=== PATIENT | female | born 1970 | race Caucasian/White ===

== ENCOUNTER 2019-11-06 07:02 | Inpatient (IN) | payer MEDICAID ==
[~2019-11-06] VITALS: Ht 170.2 cm; Wt 99.2 kg
[~2019-11-06 07:02] MED LIST: ALBU8.5H5; ALPR1TAB2; CARI350T; METH10TA; OXYC15TA60
[2019-11-06] MEDS ORDERED: METOCLOPRAMIDE 5 MG/ML, 2ML IVPush ONE (07:30)
[2019-11-06] MEDS ORDERED: SODIUM CHLORIDE FLUSH 10ML SYR IVF ONE (07:30)
[2019-11-06] MEDS ORDERED: SODIUM CHLORIDE 0.9% 1,000ML IVBOLUS ONE (07:30)
[2019-11-06] MEDS ORDERED: ONDANSETRON 2MG/ML, 2ML IVPush ONE (07:30)
[2019-11-06] MEDS ORDERED: ONDANSETRON 2MG/ML, 2ML ONE ×2 (07:32→16:47)
[2019-11-06] MEDS ORDERED: MORPHINE SULFATE 4 MG/ML, 1ML ONE ×3 (07:32→16:47)
[2019-11-06] MEDS ORDERED: METOCLOPRAMIDE 5 MG/ML, 2ML ONE (07:32)
[2019-11-06] MEDS: MORPHINE SULFATE 4 MG/ML, 1ML IVPush PRN ×2 (07:43→08:10)
[2019-11-06 07:54] LABS: MEAN CORPUSCULAR HEMOGLOBIN 26.1 pg (27.0-34.8); MEAN CORPUSCULAR HGB CONC 32.9 g/dL (32.4-35.8); MEAN CORPUSCULAR VOLUME 79.3 fL (80-100); MEAN PLATELET VOLUME 8.4 fL (7.4-10.4); PLATELET COUNT 420 x10^3/uL (130-400); RED BLOOD COUNT 5.62 x10^6/uL (3.82-5.3); RED CELL DISTRIBUTION WIDTH 22.4 % (9.6-15.2)
--- NOTE | 2019-11-06 07:56 | NUR ---
BIB [facility] FOR NAUSEA/VOMITING X3 DAYS, SEEN AT [facility] THIS AM AT 0300 AND HAD RECENT STAY THERE 10/31-11/04 FOR ABD PAIN/INTRACTABLE VOMITING. IV ESTABLISHED AND PT MEDICATED PER MAR, IVF INFUSING. PT FOUND IN ROOM OUT OF BED WITH MONITORS REMOVED AFTER RN EDUCATED PT TO CALL IF NEEDED, PT RE-INSTRUCTED NOT TO REMOVE MONITORS AND TO CALL RN IF NEEDS TO GET UP. PT NODS TO UNDERSTANDING.
[2019-11-06 08:10] LABS: BASOPHILS # (AUTO) 0.02 x10^3/uL (0-0.1); BASOPHILS % (AUTO) 0 % (0-1); EOSINOPHILS % (AUTO) 0 % (1-7); LYMPHOCYTES # (AUTO) 1.35 x10^3/uL (1-3.4); LYMPHOCYTES % (AUTO) 8 % (22-44); MD SCAN; MONOCYTES # (AUTO) 0.64 x10^3/uL (0.2-0.8); MONOCYTES % (AUTO) 4 % (2-9); NEUTROPHILS # (AUTO) 15.93 x10^3/uL (1.8-6.8); NEUTROPHILS % (AUTO) 89 % (42-75)
[2019-11-06 08:16] LABS: INTERNATIONAL NORMALIZED RATIO 1.01 (0.93-1.1); PROTHROMBIN TIME 10.7 Seconds (9.6-11.5)
[2019-11-06] MEDS ORDERED: HALOPERIDOL 5 MG/ML ONE (08:57)
[2019-11-06] MEDS ORDERED: HALOPERIDOL 5 MG/ML IV PRN (09:00)
--- NOTE | 2019-11-06 09:04 | NUR ---
PT CONTINUES TO REMOVE MONITOR, CLOTHING AND OXYGEN DESPITE REPEATED EDUCATION. LAB UNABLE TO DRAW PT BECUASE SHE WILL NOT STOP MOVING FOR VENIPUNCTURE. NOTIFIED. PT MEDICATED PER MAR. PT ON 2L NC, IVF INFUSING.
--- NOTE | 2019-11-06 09:50 | NUR ---
SITTER AT BEDSIDE. LAB AT BEDSIDE FOR REDRAW. PT SOMEWHAT CALM AT THIS TIME.
--- NOTE | 2019-11-06 09:59 | NUR ---
CT WAITING FOR IV AND LAB RESULTS
--- NOTE | 2019-11-06 10:02 | NUR ---
PT STILL GETTING OUT OF BED AND REMOVING MONITORS, BIOLOGY INTERN NOTIFIED. SITTER AT BEDSIDE.
[2019-11-06 10:16] LABS: ALANINE AMINOTRANSFERASE 29 U/L (12-78); ALBUMIN 2.9 g/dL (3.4-5.0); ANION GAP 10 mmol/L (5-15); CALCIUM 8.4 mg/dL (8.5-10.1); CHLORIDE 107 mmol/L (98-107); CREATININE 0.67 mg/dL (0.55-1.02)
[2019-11-06 10:18] LABS: ALKALINE PHOSPHATASE 61 U/L (45-117); BILIRUBIN,TOTAL 0.5 mg/dL (0.2-1.0); TOTAL PROTEIN 7.1 g/dL (6.4-8.2)
--- NOTE | 2019-11-06 10:22 | NUR ---
CALLED CT ABOUT DELAY, CT STATES THEY WILL COME GET PT SHORTLY
[2019-11-06 11:04] LABS: ACETONE, SERUM Negative (Negative)
[2019-11-06] MEDS ORDERED: OMNIPAQUE 350 MG/ML, 100ML BOTTLE ONE (11:08)
--- NOTE | 2019-11-06 11:22 | NUR ---
REPORT RECEIVED FROM GINA VALDEZ.
--- NOTE | 2019-11-06 11:23 | NUR ---
REPORT TO RAKESH VALDEZ, PT MOVED TO ROOM 41 TO HAVE SITTER. WHEN WENT TO ROOM TO MOVE PT, PT STANDING AT BEDSIDE WITH ALL MONITORS REMOVED.
[2019-11-06] MEDS ORDERED: OXYCODON (11:30)
[2019-11-06] MEDS ORDERED: ONDA4TAB7 PO (11:30)
[2019-11-06] MEDS ORDERED: BENTYL (11:30)
[2019-11-06] MEDS ORDERED: SUCR1TAB33 PO (11:31)
--- NOTE | 2019-11-06 11:34 | NUR ---
PT IS POOR HISTORIAN. PT IS NOT ABLE TO PROVIDE DOSE AND LAST TAKEN OF HER HOME MEDICATION.
[2019-11-06] MEDS: NS + 20MEQ KCL 1,000 ML IV SCH (11:51)
[2019-11-06] MEDS ORDERED: ACETAMINOPHEN 325 MG TABLET PO PRN (12:00)
[2019-11-06] MEDS ORDERED: hydrALAzine 20 MG/ML, 1ML IVPush PRN (12:00)
[2019-11-06] MEDS ORDERED: ONDANSETRON ODT 4 MG PO PRN (12:00)
--- NOTE | 2019-11-06 12:10 | NUR ---
PT MOVES ATTEMPTING TO GET OUT OF BED MULTIPLE TIMES. PT BEING EDUCATED REGARDING HER BEHAVIORS. PT VERBALIZED UNDERSTANDING. PT CONTINUES TO SHOUTING. PT TOOK OFF ALL MONITORS AT THIS TIME.
--- NOTE | 2019-11-06 12:22 | NUR ---
BEDSIDE COMMODE AT BEDSIDE AT THIS TIME. PT TRIED TO URINETE BUT PT STATES"I CAN'T PEE."
[2019-11-06] MEDS ORDERED: METRONIDAZOLE PMX 500MG/100ML 100 ML ONE (12:32)
[2019-11-06] MEDS ORDERED: CEFTRIAXONE PMX 1GM/50ML 50 ML ONE (12:32)
[2019-11-06] MEDS ORDERED: PANTOPRAZOLE 40 MG IV ONE (12:32)
[2019-11-06] MEDS ORDERED: NS + 20MEQ KCL 1,000 ML IV ONE (12:33)
[2019-11-06] MEDS: PANTOPRAZOLE 40 MG IV IVPush SCH (12:44)
[2019-11-06] MEDS: CEFTRIAXONE PMX 1GM/50ML 50 ML IV SCH (12:44)
[2019-11-06] MEDS: SUCRALFATE 1 GM/10 ML UDC PO SCH ×3 (12:44→21:43)
--- NOTE | 2019-11-06 13:02 | NUR ---
REPORT GIVEN TO SHELLEY VALDEZ.
--- NOTE | 2019-11-06 13:05 | NUR ---
PT IN BED W/ SIDE RAILS UP SITTER IN PLACE FOR SAFETY ABX/NS INFUSING AWAIITNG BED.
--- NOTE | 2019-11-06 13:05 | NUR ---
REPORT FROM RAKESH VALDEZ.
[2019-11-06] MEDS: METRONIDAZOLE PMX 500MG/100ML 100 ML IV SCH ×2 (14:49→23:20)
--- NOTE | 2019-11-06 15:11 | NUR ---
PT MOVED TO HOSPITAL BED. TO COMMODE, UA SENT. VSS. SLEEPING. FLUIDS/ABX PER NOV. MADE AWARE OF NPO STATUS. AWAITING BED. CALL RAYMOND IN REACH. SITTER/ALARM ON.
[2019-11-06 15:33] LABS: CULTURE INDICATED? YES; MICROSCOPIC INDICATED
[2019-11-06] MEDS: morphine SULFATE 10 MG/ML, 1ML IVPush PRN ×2 (16:50→21:57)
[2019-11-06] MEDS: ONDANSETRON 2MG/ML, 2ML IVPush PRN ×2 (16:51→23:19)
--- NOTE | 2019-11-06 16:53 | NUR ---
MORPHINE/ZOFRAN PER NOV. PT DROWSY. CALLBELL IN REACH. VSS. ON 2LNC, DESATS WHEN SLEEPING.
--- NOTE | 2019-11-06 17:56 | NUR ---
REPORT TO CATA VALDEZ.
[2019-11-06 19:32] VITALS: BP 134/82
[2019-11-06] MEDS: OXYcodone IR 5MG TABLET PO PRN (23:52)
[2019-11-07] MEDS: PANTOPRAZOLE 40 MG IV IVPush SCH ×2 (01:10→12:07)
[2019-11-07 01:28] VITALS: BP 125/85
[2019-11-07] MEDS: morphine SULFATE 10 MG/ML, 1ML IVPush PRN ×8 (02:00→22:03)
[2019-11-07] MEDS: OXYcodone IR 5MG TABLET PO PRN ×3 (04:10→15:15)
[2019-11-07] MEDS: NS + 20MEQ KCL 1,000 ML IV SCH ×3 (06:11→18:58)
[2019-11-07 07:07] VITALS: BP 124/83
[2019-11-07] MEDS: SUCRALFATE 1 GM/10 ML UDC PO SCH ×4 (07:27→19:58)
[2019-11-07] MEDS: METRONIDAZOLE PMX 500MG/100ML 100 ML IV SCH ×3 (07:27→22:46)
[2019-11-07 08:08] LABS: ALBUMIN 2.6 g/dL (3.4-5.0); ANION GAP 5 mmol/L (5-15); CALCIUM 8.5 mg/dL (8.5-10.1); CHLORIDE 110 mmol/L (98-107)
[2019-11-07 08:11] LABS: MEAN CORPUSCULAR HEMOGLOBIN 26.1 pg (27.0-34.8); MEAN CORPUSCULAR HGB CONC 32.2 g/dL (32.4-35.8); MEAN CORPUSCULAR VOLUME 81.2 fL (80-100); MEAN PLATELET VOLUME 7.9 fL (7.4-10.4); PLATELET COUNT 289 x10^3/uL (130-400); RED BLOOD COUNT 4.65 x10^6/uL (3.82-5.3); RED CELL DISTRIBUTION WIDTH 22.9 % (9.6-15.2)
[2019-11-07 08:12] LABS: ALANINE AMINOTRANSFERASE 21 U/L (12-78); ALKALINE PHOSPHATASE 44 U/L (45-117); BILIRUBIN,TOTAL 0.4 mg/dL (0.2-1.0); CREATININE 0.56 mg/dL (0.55-1.02); TOTAL PROTEIN 6.1 g/dL (6.4-8.2)
[2019-11-07 08:50] LABS: BASOPHILS # (AUTO) 0.02 x10^3/uL (0-0.1); BASOPHILS % (AUTO) 0 % (0-1); EOSINOPHILS # (AUTO) 0.02 x10^3/uL (0-0.4); EOSINOPHILS % (AUTO) 0 % (1-7); LYMPHOCYTES # (AUTO) 1.87 x10^3/uL (1-3.4); LYMPHOCYTES % (AUTO) 15 % (22-44); MD SCAN; MONOCYTES # (AUTO) 0.98 x10^3/uL (0.2-0.8); MONOCYTES % (AUTO) 8 % (2-9); NEUTROPHILS # (AUTO) 9.46 x10^3/uL (1.8-6.8); NEUTROPHILS % (AUTO) 77 % (42-75)
[2019-11-07] MEDS: ONDANSETRON 2MG/ML, 2ML IVPush PRN ×2 (09:33→19:58)
[2019-11-07] MEDS: CEFTRIAXONE PMX 1GM/50ML 50 ML IV SCH (12:07)
[2019-11-07 12:42] VITALS: BP 124/82
[2019-11-07 19:10] VITALS: BP 117/76
[2019-11-08] MEDS: PANTOPRAZOLE 40 MG IV IVPush SCH ×2 (01:11→13:10)
[2019-11-08] MEDS: morphine SULFATE 10 MG/ML, 1ML IVPush PRN ×3 (01:17→08:33)
[2019-11-08 01:37] VITALS: BP 122/80
[2019-11-08 06:02] LABS: MEAN CORPUSCULAR HEMOGLOBIN 26.5 pg (27.0-34.8); MEAN CORPUSCULAR HGB CONC 32.6 g/dL (32.4-35.8); MEAN CORPUSCULAR VOLUME 81.3 fL (80-100); MEAN PLATELET VOLUME 7.9 fL (7.4-10.4); PLATELET COUNT 232 x10^3/uL (130-400); RED BLOOD COUNT 4.09 x10^6/uL (3.82-5.3); RED CELL DISTRIBUTION WIDTH 23.6 % (9.6-15.2)
[2019-11-08 06:10] LABS: ANION GAP 5 mmol/L (5-15); CALCIUM 7.9 mg/dL (8.5-10.1); CHLORIDE 110 mmol/L (98-107); CREATININE 0.62 mg/dL (0.55-1.02)
[2019-11-08] MEDS: SUCRALFATE 1 GM/10 ML UDC PO SCH ×4 (06:10→20:19)
[2019-11-08] MEDS: METRONIDAZOLE PMX 500MG/100ML 100 ML IV SCH ×3 (06:11→22:48)
[2019-11-08 06:35] LABS: BASOPHILS # (AUTO) 0.02 x10^3/uL (0-0.1); BASOPHILS % (AUTO) 0 % (0-1); EOSINOPHILS # (AUTO) 0.07 x10^3/uL (0-0.4); EOSINOPHILS % (AUTO) 1 % (1-7); LYMPHOCYTES # (AUTO) 1.65 x10^3/uL (1-3.4); LYMPHOCYTES % (AUTO) 22 % (22-44); MD SCAN; MONOCYTES # (AUTO) 0.74 x10^3/uL (0.2-0.8); MONOCYTES % (AUTO) 10 % (2-9); NEUTROPHILS # (AUTO) 4.93 x10^3/uL (1.8-6.8); NEUTROPHILS % (AUTO) 67 % (42-75)
[2019-11-08 06:42] VITALS: BP 126/86
[2019-11-08] MEDS: NS + 20MEQ KCL 1,000 ML IV SCH (09:51)
[2019-11-08] MEDS: ONDANSETRON 2MG/ML, 2ML IVPush PRN (09:51)
[2019-11-08] MEDS: OXYcodone IR 5MG TABLET PO PRN ×3 (11:00→20:19)
[2019-11-08] MEDS: MAALOX/HYOSCYAMINE/LIDOCAINE 45 ML BTL PO PRN ×4 (11:26→23:30)
[2019-11-08] MEDS: CEFTRIAXONE PMX 1GM/50ML 50 ML IV SCH (11:29)
[2019-11-08] MEDS: CARISOPRODOL 350 MG TABLET PO PRN (13:10)
[2019-11-08 13:46] VITALS: BP 99/64
[2019-11-08 18:34] VITALS: BP 114/79
[2019-11-08] MEDS ORDERED: PANTOPROZOLE 40MG TABLET PO ONE (21:00)
[2019-11-09 00:42] VITALS: BP 138/83
[2019-11-09] MEDS: CARISOPRODOL 350 MG TABLET PO PRN (05:54)
[2019-11-09] MEDS: OXYcodone IR 5MG TABLET PO PRN (05:56)
[2019-11-09] MEDS ORDERED: PANTOPROZOLE 40MG TABLET PO SCH (06:00)
[2019-11-09 06:24] LABS: OCCULT BLOOD POSITIVE (NEGATIVE)
[2019-11-09] MEDS: MAALOX/HYOSCYAMINE/LIDOCAINE 45 ML BTL PO PRN (06:25)
[2019-11-09] MEDS: ONDANSETRON 2MG/ML, 2ML IVPush PRN (06:26)
[2019-11-09 06:47] LABS: CLOSTRIDIUM DIFFICILE ANTIGEN NEGATIVE; CLOSTRIDIUM DIFFICILE TOXIN NEGATIVE (Negative)
[2019-11-09] MEDS: METRONIDAZOLE PMX 500MG/100ML 100 ML IV SCH (07:37)
[2019-11-09] MEDS: SUCRALFATE 1 GM/10 ML UDC PO SCH ×2 (07:37→11:56)
[2019-11-09 08:27] LABS: MEAN CORPUSCULAR HGB CONC 31.9 g/dL (32.4-35.8); MEAN CORPUSCULAR VOLUME 81.6 fL (80-100); MEAN PLATELET VOLUME 7.5 fL (7.4-10.4); PLATELET COUNT 266 x10^3/uL (130-400); RED BLOOD COUNT 4.53 x10^6/uL (3.82-5.3); RED CELL DISTRIBUTION WIDTH 23.3 % (9.6-15.2)
[2019-11-09 08:44] VITALS: BP 134/83
[2019-11-09 08:45] LABS: MD MORPH REVIEW ONLY
[2019-11-09 08:46] LABS: BASOPHILS # (AUTO) 0.02 x10^3/uL (0-0.1); BASOPHILS % (AUTO) 0 % (0-1); EOSINOPHILS # (AUTO) 0.04 x10^3/uL (0-0.4); EOSINOPHILS % (AUTO) 1 % (1-7); LYMPHOCYTES % (AUTO) 21 % (22-44); MONOCYTES # (AUTO) 0.49 x10^3/uL (0.2-0.8); MONOCYTES % (AUTO) 8 % (2-9); NEUTROPHILS % (AUTO) 70 % (42-75); OVALOCYTES 1+
[2019-11-09 08:47] LABS: <PLATELET ESTIMATE> ADEQUATE; <PLT MORPHOLOGY> NORMAL PLT MORPH; ANISOCYTOSIS 1+
[2019-11-09] MEDS ORDERED: SUCR1TAB33 PO (09:47)
[2019-11-09] MEDS ORDERED: CEFD300C37 PO (09:47)
[2019-11-09] MEDS ORDERED: METR-90 PO (09:47)
[2019-11-09] MEDS ORDERED: HYOS125E PO (09:47)
[2019-11-09] MEDS ORDERED: OMEP-110 PO (09:47)
== END 2019-11-09 12:04 | disposition home or self-care (01) | DRG 241 ==
LOC: ED 08:00 → SUATTDRO 11:32 → EDIP 11:51 → 3N 18:38
PROVIDERS: ADMIT Hospitalist; ATTEND Hospitalist
PROC: 0T9B70Z Drainage of Bladder with Drainage Device, Via Natural or Artificial Opening (ICD-10-PCS; principal; 2019-11-06)
DX: K29.81 Duodenitis with bleeding (principal); K76.0 Fatty (change of) liver, not elsewhere classified; D47.3 Essential (hemorrhagic) thrombocythemia; D72.829 Elevated white blood cell count, unspecified; E66.9 Obesity, unspecified; E87.6 Hypokalemia; F17.200 Nicotine dependence, unspecified, uncomplicated; I25.10 Atherosclerotic heart disease of native coronary artery without angina pectoris; K20.9 Esophagitis, unspecified; G89.29 Other chronic pain; J44.9 Chronic obstructive pulmonary disease, unspecified; Z80.1 Family history of malignant neoplasm of trachea, bronchus and lung; Z87.11 Personal history of peptic ulcer disease; Z87.19 Personal history of other diseases of the digestive system; Z68.34 Body mass index [BMI] 34.0-34.9, adult
CPT/HCPCS: 36415; 74177; 80048; 80053; 81001; 82010; 82272; 83605; 83690; 84145; 85025; 85610; 85730; 87040; 87046; 87086; 87324; 87427; 93005; 96361; 96374; 96375; G0378; J0696; J2405; J3480; Q9967; C9113; J1630; J2270; J2765; J7030

== ENCOUNTER 2019-11-12 19:05 | Inpatient (IN) | payer MEDICAID ==
[~2019-11-12] VITALS: Ht 170.2 cm; Wt 102.5 kg
[~2019-11-12 19:05] MED LIST changes: +BENTYL; +CEFD300C37 PO; +HYOS125E PO; +METR-90 PO; +OMEP-110 PO; +ONDA4TAB7 PO; +OXYCODON; +SUCR1TAB33 PO
--- NOTE | 2019-11-12 19:17 | NUR ---
dorian grant stated pt was here 5 days ago d/x duodenitis, taking abx's and pain medication at home and pt stated medication is not helping. monitors applied, siderails up x2, call light within reach. awaiting erp for eval
[2019-11-12] MEDS ORDERED: HYDROmorphone 1 MG/ML, 1ML INJ ONE (19:55)
[2019-11-12] MEDS ORDERED: ONDANSETRON 2MG/ML, 2ML ONE (19:55)
[2019-11-12] MEDS ORDERED: SODIUM CHLORIDE 0.9% 1,000ML IVBOLUS ONE (20:00)
[2019-11-12] MEDS ORDERED: ONDANSETRON 2MG/ML, 2ML IVPush ONE (20:00)
[2019-11-12] MEDS ORDERED: HYDROmorphone 2 MG/ML, 1ML IVPush PRN (20:00)
[2019-11-12] MEDS ORDERED: SODIUM CHLORIDE FLUSH 10ML SYR IVF ONE (20:00)
--- NOTE | 2019-11-12 20:03 | NUR ---
iv site started. pt medicated per mar
--- NOTE | 2019-11-12 20:06 | NUR ---
urine sample sent
[2019-11-12 20:35] LABS: CULTURE INDICATED? YES; MICROSCOPIC INDICATED
[2019-11-12] MEDS ORDERED: HALOPERIDOL 5 MG/ML IM STA (20:42)
[2019-11-12] MEDS ORDERED: MAALOX/HYOSCYAMINE/LIDOCAINE 45 ML BTL ONE (20:47)
[2019-11-12] MEDS ORDERED: HALOPERIDOL 5 MG/ML ONE (20:48)
--- NOTE | 2019-11-12 20:53 | NUR ---
pt requesting additional pain medication. pt medicated per mar
[2019-11-12] MEDS ORDERED: MAALOX/HYOSCYAMINE/LIDOCAINE 45 ML BTL PO ONE (21:00)
--- NOTE | 2019-11-12 21:00 | NUR ---
pt's friend concerned about pt leaving her purse in hospital room, this rn asked pt if she would like purse locked in security, pt refused several times.
[2019-11-12 21:56] LABS: MEAN CORPUSCULAR HEMOGLOBIN 26.5 pg (27.0-34.8); MEAN CORPUSCULAR HGB CONC 32.6 g/dL (32.4-35.8); MEAN CORPUSCULAR VOLUME 81.4 fL (80-100); MEAN PLATELET VOLUME 7.4 fL (7.4-10.4); PLATELET COUNT 280 x10^3/uL (130-400); RED CELL DISTRIBUTION WIDTH 24.3 % (9.6-15.2)
--- NOTE | 2019-11-12 22:00 | NUR ---
laboratory chief stated labs were recently sent, pa updated
[2019-11-12 22:06] LABS: ALANINE AMINOTRANSFERASE 18 U/L (12-78); ALBUMIN 2.7 g/dL (3.4-5.0); ANION GAP 7 mmol/L (5-15); CALCIUM 8.3 mg/dL (8.5-10.1); CHLORIDE 109 mmol/L (98-107)
--- NOTE | 2019-11-12 22:06 | NUR ---
pt resting on abdomen, provided pt with pillow per her request, monitors in place, call light within reach. awaiting lab results
[2019-11-12 22:09] LABS: ALKALINE PHOSPHATASE 45 U/L (45-117); BILIRUBIN,TOTAL 0.4 mg/dL (0.2-1.0); CREATININE 0.59 mg/dL (0.55-1.02); TOTAL PROTEIN 6.3 g/dL (6.4-8.2)
[2019-11-12 22:56] LABS: BASOPHILS # (AUTO) 0.02 x10^3/uL (0-0.1); BASOPHILS % (AUTO) 0 % (0-1); EOSINOPHILS # (AUTO) 0.05 x10^3/uL (0-0.4); EOSINOPHILS % (AUTO) 1 % (1-7); LYMPHOCYTES # (AUTO) 1.51 x10^3/uL (1-3.4); LYMPHOCYTES % (AUTO) 17 % (22-44); MD SCAN; MONOCYTES # (AUTO) 0.45 x10^3/uL (0.2-0.8); MONOCYTES % (AUTO) 5 % (2-9); NEUTROPHILS # (AUTO) 7.07 x10^3/uL (1.8-6.8); NEUTROPHILS % (AUTO) 78 % (42-75)
--- NOTE | 2019-11-12 23:04 | NUR ---
pt resting with eyes closed, nad, respirations even and unlabored, monitors in place, call light within reach. chart up for recheck
--- NOTE | 2019-11-12 23:20 | NUR ---
pt up to rr via w/c. pt requesting more pain medication, erp updated, no new orders at this time.
[2019-11-12] MEDS ORDERED: ONDANSETRON 2MG/ML, 2ML IVPush PRN (23:30)
[2019-11-12] MEDS ORDERED: SODIUM CHLORIDE 0.9% 1,000 ML IV ONE (23:30)
[2019-11-13 00:36] VITALS: BP 128/84
[2019-11-13] MEDS ORDERED: ACETAMINOPHEN 325 MG TABLET PO PRN (01:00)
[2019-11-13] MEDS ORDERED: hydrALAzine 20 MG/ML, 1ML IVPush PRN (01:00)
[2019-11-13] MEDS ORDERED: LIDODERM 5% PATCH TD PRN (01:00)
[2019-11-13] MEDS ORDERED: BISACODYL 10 MG SUPP PR PRN (01:00)
[2019-11-13] MEDS ORDERED: TEMAZEPAM 15 MG CAPSULE PO PRN (01:00)
[2019-11-13] MEDS ORDERED: ONDANSETRON 2MG/ML, 2ML IVPush PRN (01:00)
[2019-11-13] MEDS: HYDROmorphone 2 MG/ML, 1ML IVPush PRN ×7 (01:20→22:38)
[2019-11-13] MEDS: HEPARIN 5,000 UNITS/ML, 1ML SQ SCH ×3 (01:21→18:12)
[2019-11-13] MEDS ORDERED: HYOSCYAMINE 0.125 MG TAB.SUBL SL PRN (02:00)
[2019-11-13] MEDS ORDERED: SUCRALFATE 1 GM TABLET PO SCH (07:00)
[2019-11-13] MEDS: OXYcodone IR 5MG TABLET PO PRN ×4 (07:54→22:08)
[2019-11-13 08:04] VITALS: BP 137/93
[2019-11-13] MEDS: CEFDINIR 300 MG CAPSULE PO SCH ×2 (08:42→22:08)
[2019-11-13] MEDS ORDERED: OMEPRAZOLE 20 MG CAPSULE.DR PO SCH (09:00)
[2019-11-13] MEDS: SUCRALFATE 1 GM/10 ML UDC PO SCH ×3 (11:54→22:07)
[2019-11-13] MEDS: MAALOX/HYOSCYAMINE/LIDOCAINE 45 ML BTL PO PRN (11:54)
[2019-11-13 14:41] VITALS: BP 122/87
[2019-11-13 19:41] VITALS: BP 100/61
[2019-11-13] MEDS: OMEPRAZOLE 20 MG CAPSULE.DR PO SCH (22:08)
[2019-11-14] MEDS: MAALOX/HYOSCYAMINE/LIDOCAINE 45 ML BTL PO PRN (01:20)
[2019-11-14] MEDS: HEPARIN 5,000 UNITS/ML, 1ML SQ SCH ×2 (01:20→08:28)
[2019-11-14] MEDS: HYDROmorphone 2 MG/ML, 1ML IVPush PRN ×4 (01:50→11:50)
[2019-11-14 02:19] VITALS: BP 97/61
[2019-11-14] MEDS: SUCRALFATE 1 GM/10 ML UDC PO SCH ×2 (07:36→11:49)
[2019-11-14 08:20] VITALS: BP 104/64
[2019-11-14] MEDS: CEFDINIR 300 MG CAPSULE PO SCH (08:28)
[2019-11-14] MEDS: OMEPRAZOLE 20 MG CAPSULE.DR PO SCH (08:28)
[2019-11-14] MEDS ORDERED: OMEP-110 PO (11:19)
[2019-11-14] MEDS ORDERED: METR-90 PO (11:19)
[2019-11-14] MEDS ORDERED: CEFD300C37 PO (11:19)
== END 2019-11-14 13:42 | disposition home or self-care (01) | DRG 249 ==
LOC: ED 23:39 → EDIP 23:54 → 4NE 11-13 → 3N 11-13 17:45
PROVIDERS: ADMIT Hospitalist; ATTEND Hospitalist
DX: K52.9 Noninfective gastroenteritis and colitis, unspecified (principal); F11.20 Opioid dependence, uncomplicated; E66.9 Obesity, unspecified; F17.210 Nicotine dependence, cigarettes, uncomplicated; G89.29 Other chronic pain; J44.9 Chronic obstructive pulmonary disease, unspecified; Z76.5 Malingerer [conscious simulation]; Z80.9 Family history of malignant neoplasm, unspecified; Z87.11 Personal history of peptic ulcer disease; Z88.6 Allergy status to analgesic agent
CPT/HCPCS: 36415; 74021; 80053; 81001; 83690; 85025; 87077; 87086; 87184; 87186; 96374; 99285; G0378; J1170; J1644; J2405; J1630; J7030

== ENCOUNTER 2019-11-15 12:32 | Inpatient (IN) | payer MEDICAID ==
[~2019-11-15] VITALS: Ht 170.2 cm; Wt 106.6 kg
[2019-11-15] MEDS ORDERED: PANTOPRAZOLE 80 MG in SODIUM CHLORIDE 0.9% 50 ML IVPB ONE (12:39)
[2019-11-15] MEDS ORDERED: PANTOPRAZOLE 80 MG in SODIUM CHLORIDE 0.9% 100 ML IV SCH (12:39)
[2019-11-15] MEDS ORDERED: HYDROmorphone 1 MG/ML, 1ML INJ IV STA ×2 (12:52→14:25)
[2019-11-15] MEDS ORDERED: HYDROmorphone 1 MG/ML, 1ML INJ ONE ×2 (12:55→14:20)
[2019-11-15] MEDS ORDERED: MORPHINE SULFATE 4 MG/ML, 1ML IVPush PRN (13:00)
[2019-11-15] MEDS ORDERED: PLEASE ENTER ALLERGIES MC SCH (13:00)
[2019-11-15] MEDS ORDERED: ONDANSETRON 2MG/ML, 2ML IVPush ONE (13:00)
--- NOTE | 2019-11-15 13:12 | NUR ---
THIS IS A 49 YO F BIB [facility] W/ C/O EPIGASTRIC ABD PAIN AND BLOOD IN STOOLS SINCE THIS MORNING. PT REPORTS N/V. DENIES CP/SOB. PT IS RESTING ON [place] Ride W/ CALL LIGHT IN REACH. PIV STARTED. LABS DRAWN. PT MEDICATED PER EMAR. PT IS TACHYCARDIC. ALL OTHER VS WDL. PT CONNECTED TO ALL MONITORING.
[2019-11-15] MEDS ORDERED: ONDANSETRON 2MG/ML, 2ML ONE ×2 (13:15→18:38)
--- NOTE | 2019-11-15 13:28 | NUR ---
MED ALEXANDRA FROM PHARMACY.
[2019-11-15] MEDS ORDERED: PLEASE ENTER WEIGHT MC SCH ×2 (13:30)
--- NOTE | 2019-11-15 13:45 | NUR ---
PROTONIX BOLUS STARTED. LAB IN ROOM FOR REDRAW.
[2019-11-15 13:53] LABS: BASOPHILS # (AUTO) 0.03 x10^3/uL (0-0.1); BASOPHILS % (AUTO) 0 % (0-1); EOSINOPHILS # (AUTO) 0.02 x10^3/uL (0-0.4); EOSINOPHILS % (AUTO) 0 % (1-7); LYMPHOCYTES # (AUTO) 1.17 x10^3/uL (1-3.4); LYMPHOCYTES % (AUTO) 19 % (22-44); MD MORPH REVIEW ONLY; MEAN CORPUSCULAR HEMOGLOBIN 26.7 pg (27.0-34.8); MEAN CORPUSCULAR HGB CONC 32.6 g/dL (32.4-35.8); MEAN CORPUSCULAR VOLUME 81.8 fL (80-100); MEAN PLATELET VOLUME 8.3 fL (7.4-10.4); MONOCYTES # (AUTO) 0.61 x10^3/uL (0.2-0.8); MONOCYTES % (AUTO) 10 % (2-9); NEUTROPHILS # (AUTO) 4.39 x10^3/uL (1.8-6.8); NEUTROPHILS % (AUTO) 71 % (42-75); PLATELET COUNT 288 x10^3/uL (130-400); RED BLOOD COUNT 4.29 x10^6/uL (3.82-5.3); RED CELL DISTRIBUTION WIDTH 24.8 % (9.6-15.2)
[2019-11-15 13:57] LABS: <PLATELET ESTIMATE> ADEQUATE; <PLT MORPHOLOGY> NORMAL PLT MORPH; ANISOCYTOSIS 1+; OVALOCYTES 1+; POLYCHROMASIA 1+
[2019-11-15 14:16] LABS: ALBUMIN 2.4 g/dL (3.4-5.0); ANION GAP 6 mmol/L (5-15); CALCIUM 8.6 mg/dL (8.5-10.1); CHLORIDE 112 mmol/L (98-107)
[2019-11-15 14:19] LABS: INTERNATIONAL NORMALIZED RATIO 1.03 (0.93-1.1); PROTHROMBIN TIME 10.9 Seconds (9.6-11.5)
[2019-11-15 14:20] LABS: ALANINE AMINOTRANSFERASE 16 U/L (12-78); ALKALINE PHOSPHATASE 42 U/L (45-117); BILIRUBIN,TOTAL 0.5 mg/dL (0.2-1.0)
[2019-11-15] MEDS ORDERED: FENTANYL PF 100 MCG/2ML ONE ×2 (14:20→17:48)
[2019-11-15] MEDS ORDERED: MIDAZOLAM 1 MG/ML, 5ML ONE (14:21)
--- NOTE | 2019-11-15 14:23 | NUR ---
ADMITTING PROVIDER IN ROOM.
--- NOTE | 2019-11-15 14:54 | NUR ---
PT FOUND STANDING AT SIDE OF GURNEY, HR INCREASED TO 139. PT INSISTANT ON GOING TO BR, REFUSED TO USE BSC OR BEDPAN. PT AMB SLOWLY. LOOSE/LIQUID RED BROWN STOOL. PT WITH C/O CP WHILE IN BR. PT BACK TO ROOM VIA W/C. REQUESTED EKG TO BE DONE. PT RETURNED TO MONITORING EQUIPMENT. (NO LONGER C/O CP). "I NEED TO BE CLEANED UP, ITS STINKY. I NEED TO CALL (FAMILY)" PT RESISTANT TO LAYING ON BACK FOR EKG. DR YA UPDATED ON EVENT.
--- NOTE | 2019-11-15 14:58 | NUR ---
PROTONIX INFUSION STOPPED FOR CT.
--- NOTE | 2019-11-15 15:14 | NUR ---
PT BACK FROM CT.
[2019-11-15] MEDS ORDERED: OMNIPAQUE 350 MG/ML, 100ML BOTTLE ONE (15:18)
--- NOTE | 2019-11-15 15:20 | NUR ---
REPORT GIVEN TO MERRILL VALDEZ. PT IS READY FOR TRANSFER.
--- NOTE | 2019-11-15 15:29 | NUR ---
VERBAL ORDER FROM ADMITTING PROVIDER TO BOLULS 2L NS. 1L NS STARTED.
[2019-11-15] MEDS ORDERED: SODIUM CHLORIDE 0.9% 1,000ML IVBOLUS ONE (15:30)
[2019-11-15] MEDS ORDERED: ACETAMINOPHEN 325 MG TABLET PO PRN (15:30)
--- NOTE | 2019-11-15 15:46 | NUR ---
TELEPHONE CALL TO MERRILL RN REGARDING 2L BOLUS. INFORMED PT IS ON .
[2019-11-15 15:55] VITALS: BP 89/59
[2019-11-15] MEDS ORDERED: SUCRALFATE 1 GM TABLET PO SCH (16:00)
[2019-11-15] MEDS ORDERED: MAALOX/HYOSCYAMINE/LIDOCAINE 45 ML BTL PO ONE (16:30)
[2019-11-15 17:04] LABS: TROPONIN I < 0.015 ng/mL (0.000-0.045)
[2019-11-15] MEDS ORDERED: SUCCINYLCHOLINE 20 MG/ML, 10ML ONE (18:20)
[2019-11-15] MEDS ORDERED: PROPOFOL 10 MG/ML, 20ML ONE (18:38)
[2019-11-15] MEDS ORDERED: DEXAMETHASONE 4 MG/ML, 1ML ONE (18:38)
[2019-11-15] MEDS ORDERED: METOPROLOL 1 MG/ML, 5ML IV PRN (19:00)
[2019-11-15] MEDS ORDERED: ALBUTEROL/IPRATROPIUM 2.5MG/0.5MG, 3 ML NPPB PRN (19:00)
[2019-11-15] MEDS ORDERED: PROMETHAZINE 25 MG/ML, 1ML IV PRN (19:00)
[2019-11-15] MEDS ORDERED: MEPERIDINE/PF 25MG/ML,1ML IVPush PRN (19:00)
[2019-11-15] MEDS ORDERED: MIDAZOLAM 1 MG/ML, 2ML IV PRN (19:00)
[2019-11-15] MEDS ORDERED: FENTANYL PF 100 MCG/2ML IV PRN (19:00)
[2019-11-15] MEDS ORDERED: HYDROmorphone 2 MG/ML, 1ML IVPush PRN (19:00)
[2019-11-15 19:37] VITALS: BP 109/68
[2019-11-15] MEDS ORDERED: HYDROmorphone 1 MG/ML, 1ML INJ IM PRN (20:30)
[2019-11-15] MEDS: HYDROmorphone 1 MG/ML, 1ML INJ IV PRN ×2 (20:31→21:06)
[2019-11-15] MEDS: SUCRALFATE 1 GM/10 ML UDC PO SCH (20:31)
[2019-11-15] MEDS: SODIUM CHLORIDE 0.9% 1,000 ML IV SCH (20:32)
[2019-11-15] MEDS: ONDANSETRON 2MG/ML, 2ML IVPush PRN (21:05)
[2019-11-15 23:42] LABS: TROPONIN I < 0.015 ng/mL (0.000-0.045)
[2019-11-16] VITALS (9 sets, daily range): BP systolic 86–151; BP diastolic 54–91
[2019-11-16] MEDS: SUCRALFATE 1 GM/10 ML UDC PO SCH ×5 (01:16→20:26)
[2019-11-16] MEDS: PANTOPRAZOLE 80 MG in SODIUM CHLORIDE 0.9% 100 ML IV SCH ×3 (01:17→20:26)
[2019-11-16] MEDS: HYDROmorphone 1 MG/ML, 1ML INJ IV PRN ×5 (01:52→22:21)
[2019-11-16] MEDS: ONDANSETRON 2MG/ML, 2ML IVPush PRN ×2 (05:00→17:54)
[2019-11-16 05:34] LABS: CHLORIDE 112 mmol/L (98-107)
[2019-11-16 05:39] LABS: MEAN CORPUSCULAR HEMOGLOBIN 26.6 pg (27.0-34.8); MEAN CORPUSCULAR HGB CONC 32.2 g/dL (32.4-35.8); MEAN CORPUSCULAR VOLUME 82.7 fL (80-100); MEAN PLATELET VOLUME 7.9 fL (7.4-10.4); PLATELET COUNT 249 x10^3/uL (130-400); RED BLOOD COUNT 3.29 x10^6/uL (3.82-5.3); RED CELL DISTRIBUTION WIDTH 25.2 % (9.6-15.2)
[2019-11-16 05:47] LABS: CLOSTRIDIUM DIFFICILE ANTIGEN NEGATIVE; CLOSTRIDIUM DIFFICILE TOXIN NEGATIVE (Negative)
[2019-11-16 05:55] LABS: ALANINE AMINOTRANSFERASE 12 U/L (12-78); ALBUMIN 2.1 g/dL (3.4-5.0); ALKALINE PHOSPHATASE 37 U/L (45-117); ANION GAP 7 mmol/L (5-15); BILIRUBIN,TOTAL 0.4 mg/dL (0.2-1.0); CALCIUM 8.1 mg/dL (8.5-10.1); CREATININE 0.64 mg/dL (0.55-1.02); TOTAL PROTEIN 5.3 g/dL (6.4-8.2); TROPONIN I < 0.015 ng/mL (0.000-0.045)
[2019-11-16 06:21] LABS: BASOPHILS # (AUTO) 0.01 x10^3/uL (0-0.1); BASOPHILS % (AUTO) 0 % (0-1); EOSINOPHILS % (AUTO) 0 % (1-7); LYMPHOCYTES # (AUTO) 1.09 x10^3/uL (1-3.4); LYMPHOCYTES % (AUTO) 18 % (22-44); MD SCAN; MONOCYTES # (AUTO) 0.34 x10^3/uL (0.2-0.8); MONOCYTES % (AUTO) 6 % (2-9); NEUTROPHILS # (AUTO) 4.67 x10^3/uL (1.8-6.8); NEUTROPHILS % (AUTO) 76 % (42-75)
[2019-11-16] MEDS: SODIUM CHLORIDE 0.9% 1,000 ML IV SCH ×3 (06:41→20:26)
[2019-11-16] MEDS ORDERED: KETAMINE 10 MG/ML, 20ML ONE (08:22)
[2019-11-16] MEDS ORDERED: MIDAZOLAM 1 MG/ML, 2ML ONE (08:23)
[2019-11-16] MEDS ORDERED: FENTANYL PF 100 MCG/2ML ONE (08:23)
[2019-11-16] MEDS ORDERED: MEPERIDINE/PF 50 MG/ML ONE (09:02)
[2019-11-16] MEDS ORDERED: HYDROmorphone 1 MG/ML, 1ML INJ IV PRN ×2 (10:00)
[2019-11-16 11:37] LABS: AMPHETAMINE SCREEN, URINE Negative (Negative); BARBITURATE SCREEN, URINE Negative (Negative); BENZODIAZEPINE SCREEN, URINE Negative (Negative); CANNABINOID SCREEN, URINE Negative (Negative); COCAINE SCREEN, URINE Negative (Negative)
[2019-11-16 12:04] LABS: METHADONE SCREEN, URINE Negative (Negative); OPIATE SCREEN, URINE Positive (Negative)
[2019-11-16] MEDS ORDERED: NITROGLYCERIN 0.4 MG/SPRAY SL PRN (21:00)
[2019-11-16] MEDS ORDERED: NITROGLYCERIN 0.4 MG BOTTLE (25 TABS) SL PRN (21:00)
[2019-11-17] VITALS (8 sets, daily range): BP systolic 105–125; BP diastolic 61–87
[2019-11-17] MEDS: HYDROmorphone 1 MG/ML, 1ML INJ IV PRN ×6 (01:58→22:17)
[2019-11-17] MEDS: SODIUM CHLORIDE 0.9% 1,000 ML IV SCH ×2 (03:17→09:45)
[2019-11-17] MEDS: ONDANSETRON 2MG/ML, 2ML IVPush PRN (05:22)
[2019-11-17 05:37] LABS: MEAN CORPUSCULAR HEMOGLOBIN 26.6 pg (27.0-34.8); MEAN CORPUSCULAR HGB CONC 32.2 g/dL (32.4-35.8); MEAN CORPUSCULAR VOLUME 82.7 fL (80-100); PLATELET COUNT 204 x10^3/uL (130-400); RED BLOOD COUNT 3.05 x10^6/uL (3.82-5.3); RED CELL DISTRIBUTION WIDTH 25.2 % (9.6-15.2)
[2019-11-17 06:04] LABS: BASOPHILS # (AUTO) 0.02 x10^3/uL (0-0.1); BASOPHILS % (AUTO) 1 % (0-1); EOSINOPHILS # (AUTO) 0.02 x10^3/uL (0-0.4); EOSINOPHILS % (AUTO) 1 % (1-7); LYMPHOCYTES # (AUTO) 1.36 x10^3/uL (1-3.4); LYMPHOCYTES % (AUTO) 40 % (22-44); MD SCAN; MONOCYTES # (AUTO) 0.22 x10^3/uL (0.2-0.8); MONOCYTES % (AUTO) 6 % (2-9); NEUTROPHILS # (AUTO) 1.77 x10^3/uL (1.8-6.8); NEUTROPHILS % (AUTO) 52 % (42-75)
[2019-11-17] MEDS: SUCRALFATE 1 GM/10 ML UDC PO SCH ×4 (08:28→22:08)
[2019-11-17] MEDS: PANTOPRAZOLE 80 MG in SODIUM CHLORIDE 0.9% 100 ML IV SCH (08:28)
[2019-11-17] MEDS: OMEPRAZOLE 20 MG CAPSULE.DR PO SCH (09:45)
[2019-11-17 13:48] LABS: MEAN CORPUSCULAR HGB CONC 32.4 g/dL (32.4-35.8); MEAN CORPUSCULAR VOLUME 83.2 fL (80-100); MEAN PLATELET VOLUME 7.5 fL (7.4-10.4); PLATELET COUNT 236 x10^3/uL (130-400); RED BLOOD COUNT 3.25 x10^6/uL (3.82-5.3); RED CELL DISTRIBUTION WIDTH 24.1 % (9.6-15.2)
[2019-11-17 13:56] LABS: ANION GAP 8 mmol/L (5-15); CALCIUM 7.9 mg/dL (8.5-10.1); CHLORIDE 113 mmol/L (98-107); CREATININE 0.49 mg/dL (0.55-1.02)
[2019-11-17 14:06] LABS: BASOPHILS # (AUTO) 0.02 x10^3/uL (0-0.1); BASOPHILS % (AUTO) 1 % (0-1); EOSINOPHILS # (AUTO) 0.02 x10^3/uL (0-0.4); EOSINOPHILS % (AUTO) 1 % (1-7); LYMPHOCYTES % (AUTO) 30 % (22-44); MD SCAN; MONOCYTES # (AUTO) 0.29 x10^3/uL (0.2-0.8); MONOCYTES % (AUTO) 7 % (2-9); NEUTROPHILS # (AUTO) 2.51 x10^3/uL (1.8-6.8); NEUTROPHILS % (AUTO) 62 % (42-75)
[2019-11-17] MEDS: LACTATED RINGERS 1,000 ML IV SCH (15:10)
[2019-11-17] MEDS ORDERED: SODIUM CHLORIDE 0.9% 1,000 ML IV SCH (15:30)
[2019-11-18] MEDS: ONDANSETRON 2MG/ML, 2ML IVPush PRN (00:15)
[2019-11-18 00:17] VITALS: BP 117/76
[2019-11-18] MEDS: HYDROmorphone 1 MG/ML, 1ML INJ IV PRN ×6 (01:36→23:20)
[2019-11-18] MEDS: SUCRALFATE 1 GM/10 ML UDC PO SCH ×4 (04:44→22:30)
[2019-11-18 05:41] LABS: CHLORIDE 111 mmol/L (98-107)
[2019-11-18 05:48] LABS: ANION GAP 5 mmol/L (5-15); CALCIUM 8.1 mg/dL (8.5-10.1)
[2019-11-18 07:25] VITALS: BP 104/67
[2019-11-18 07:25] LABS: MEAN CORPUSCULAR HEMOGLOBIN 27.2 pg (27.0-34.8); MEAN CORPUSCULAR HGB CONC 32.5 g/dL (32.4-35.8); MEAN CORPUSCULAR VOLUME 83.6 fL (80-100); RED BLOOD COUNT 3.12 x10^6/uL (3.82-5.3); RED CELL DISTRIBUTION WIDTH 24.9 % (9.6-15.2)
[2019-11-18 07:28] LABS: BASOPHILS # (AUTO) 0.05 x10^3/uL (0-0.1); BASOPHILS % (AUTO) 1 % (0-1); EOSINOPHILS # (AUTO) 0.03 x10^3/uL (0-0.4); EOSINOPHILS % (AUTO) 1 % (1-7); LYMPHOCYTES # (AUTO) 1.52 x10^3/uL (1-3.4); LYMPHOCYTES % (AUTO) 38 % (22-44); MD NO; MEAN PLATELET VOLUME 8.2 fL (7.4-10.4); MONOCYTES # (AUTO) 0.22 x10^3/uL (0.2-0.8); MONOCYTES % (AUTO) 6 % (2-9); NEUTROPHILS # (AUTO) 2.17 x10^3/uL (1.8-6.8); NEUTROPHILS % (AUTO) 54 % (42-75); PLATELET COUNT 229 x10^3/uL (130-400)
[2019-11-18 07:29] LABS: HEMOGRAM NOTE RECHECKED
[2019-11-18] MEDS: OMEPRAZOLE 20 MG CAPSULE.DR PO SCH (08:44)
[2019-11-18] MEDS: LACTATED RINGERS 1,000 ML IV SCH (10:19)
[2019-11-18 14:00] VITALS: BP 121/80
[2019-11-18] MEDS: OXYcodone IR 5MG TABLET PO PRN ×2 (16:40→22:30)
[2019-11-18 20:30] VITALS: BP 98/62
[2019-11-18 20:39] VITALS: BP 112/69
[2019-11-18 23:19] VITALS: BP 121/75
[2019-11-19] VITALS (7 sets, daily range): BP systolic 107–131; BP diastolic 64–86
[2019-11-19] MEDS: HYDROmorphone 1 MG/ML, 1ML INJ IV PRN ×5 (03:53→21:42)
[2019-11-19] MEDS: OMEPRAZOLE 20 MG CAPSULE.DR PO SCH (05:45)
[2019-11-19] MEDS: SUCRALFATE 1 GM/10 ML UDC PO SCH ×4 (05:45→21:42)
[2019-11-19] MEDS: OXYcodone IR 5MG TABLET PO PRN ×2 (05:45→12:52)
[2019-11-19] MEDS: FAMOTIDINE 20 MG TABLET PO SCH (21:42)
[2019-11-20 02:18] VITALS: BP 139/89
[2019-11-20] MEDS: HYDROmorphone 1 MG/ML, 1ML INJ IV PRN ×2 (02:19→07:57)
[2019-11-20] MEDS: OMEPRAZOLE 20 MG CAPSULE.DR PO SCH (06:27)
[2019-11-20] MEDS: SUCRALFATE 1 GM/10 ML UDC PO SCH ×2 (06:27→10:47)
[2019-11-20 06:53] VITALS: BP_SYST 104; BP_SYST 124; BP_DIAS 68; BP_DIAS 78
[2019-11-20] MEDS: FAMOTIDINE 20 MG TABLET PO SCH (07:57)
[2019-11-20] MEDS ORDERED: ONDA4TAB7 PO (08:33)
[2019-11-20] MEDS ORDERED: SUCR1TAB33 PO (08:33)
[2019-11-20] MEDS ORDERED: OMEP-110 PO (08:33)
[2019-11-20] MEDS: OXYcodone IR 5MG TABLET PO PRN (10:47)
== END 2019-11-20 11:52 | disposition home or self-care (01) | DRG 241 ==
LOC: EDBD 12:32 → MERGE 12:32 → ED 14:12 → EDIP 14:18 → 3N 15:51 → 5SO 19:27
PROVIDERS: ADMIT Internal Medicine Infectious Disease; ATTEND Hospitalist
PROC: 0DB98ZX Excision of Duodenum, Via Natural or Artificial Opening Endoscopic, Diagnostic (ICD-10-PCS; principal; 2019-11-15 18:00)
DX: K26.4 Chronic or unspecified duodenal ulcer with hemorrhage (principal); K22.11 Ulcer of esophagus with bleeding; E88.09 Other disorders of plasma-protein metabolism, not elsewhere classified; K76.0 Fatty (change of) liver, not elsewhere classified; F11.20 Opioid dependence, uncomplicated; K22.2 Esophageal obstruction; D62 Acute posthemorrhagic anemia; F41.9 Anxiety disorder, unspecified; E66.9 Obesity, unspecified; F17.210 Nicotine dependence, cigarettes, uncomplicated; M54.9 Dorsalgia, unspecified; B96.20 Unspecified Escherichia coli [E. coli] as the cause of diseases classified elsewhere; G89.4 Chronic pain syndrome; J44.9 Chronic obstructive pulmonary disease, unspecified; K21.0 Gastro-esophageal reflux disease with esophagitis; Z68.36 Body mass index [BMI] 36.0-36.9, adult; Z80.9 Family history of malignant neoplasm, unspecified; Z87.19 Personal history of other diseases of the digestive system; Z98.84 Bariatric surgery status; Z88.5 Allergy status to narcotic agent; F13.20 Sedative, hypnotic or anxiolytic dependence, uncomplicated
CPT/HCPCS: 36415; 74174; 74240; 74248; 80048; 80053; 80307; 83690; 84484; 85018; 85025; 85610; 85730; 86850; 86900; 87324; 87338; 88305; 88342; 93005; 96365; 96375; 99291; G0378; J1100; J1170; J2175; J2250; J2405; J2704; J3010; Q9967; C9113; J0330; J7030; J7120

== ENCOUNTER 2019-11-30 23:04 | Emergency (ER) | payer MEDICAID ==
[~2019-11-30] VITALS: Ht 170.2 cm; Wt 91.0 kg
--- NOTE | 2019-12-01 00:20 | NUR ---
ROMM AVAILABLE AT THIS TIME AND PT ROOMED, MAGDY WAS UNABLE TO GET AN IV, DID PROVIDE PAIN MEDICATION IN THE FORM OF IM FENTANYL WHILE WAITING FOR ROOM.
[2019-12-01] MEDS ORDERED: HYDROmorphone 1 MG/ML, 1ML INJ ONE ×2 (00:26→01:16)
[2019-12-01] MEDS ORDERED: ONDANSETRON 2MG/ML, 2ML ONE (00:26)
[2019-12-01] MEDS ORDERED: ONDANSETRON 2MG/ML, 2ML IVPush ONE (00:30)
[2019-12-01] MEDS: HYDROmorphone 2 MG/ML, 1ML IVPush PRN ×2 (00:40→01:22)
--- NOTE | 2019-12-01 00:40 | NUR ---
REPORT RECEIVED FROM EMELI VALDEZ, DESTINY
[2019-12-01 00:43] LABS: BASOPHILS # (AUTO) 0.01 x10^3/uL (0-0.1); BASOPHILS % (AUTO) 0 % (0-1); EOSINOPHILS # (AUTO) 0.05 x10^3/uL (0-0.4); EOSINOPHILS % (AUTO) 1 % (1-7); LYMPHOCYTES # (AUTO) 1.69 x10^3/uL (1-3.4); LYMPHOCYTES % (AUTO) 31 % (22-44); MD NO; MEAN CORPUSCULAR HGB CONC 32.2 g/dL (32.4-35.8); MEAN PLATELET VOLUME 8.2 fL (7.4-10.4); MONOCYTES # (AUTO) 0.39 x10^3/uL (0.2-0.8); MONOCYTES % (AUTO) 7 % (2-9); NEUTROPHILS # (AUTO) 3.41 x10^3/uL (1.8-6.8); NEUTROPHILS % (AUTO) 61 % (42-75); PLATELET COUNT 289 x10^3/uL (130-400); RED BLOOD COUNT 4.61 x10^6/uL (3.82-5.3); RED CELL DISTRIBUTION WIDTH 21.1 % (9.6-15.2)
--- NOTE | 2019-12-01 00:50 | NUR ---
FIRST CONTACT WITH PATIENT: PATIENT BACK FROM XRAY, UA COLLECTED AND SENT
[2019-12-01 00:52] LABS: ALANINE AMINOTRANSFERASE 17 U/L (12-78); ANION GAP 7 mmol/L (5-15); CALCIUM 8.6 mg/dL (8.5-10.1); CHLORIDE 111 mmol/L (98-107); CREATININE 0.56 mg/dL (0.55-1.02)
[2019-12-01 00:54] LABS: ALKALINE PHOSPHATASE 55 U/L (45-117); BILIRUBIN,TOTAL 0.7 mg/dL (0.2-1.0)
[2019-12-01 01:14] LABS: CULTURE INDICATED? YES; MICROSCOPIC INDICATED
--- NOTE | 2019-12-01 01:24 | NUR ---
PATIENT GIVEN SECOND DOSE OF DILAUDID FOR PAIN AFTER CONSULTING WITH ERP
[2019-12-01] MEDS ORDERED: METOCLOPRAMIDE 5 MG/ML, 2ML ONE (01:27)
[2019-12-01] MEDS ORDERED: METOCLOPRAMIDE 5 MG/ML, 2ML IVPush ONE (01:30)
--- NOTE | 2019-12-01 01:35 | NUR ---
PATIENT MEDICATED PER EMAR FOR NAUSEA
--- NOTE | 2019-12-01 02:15 | NUR ---
CALL PLACED TO RADIOLOGY TO GET UPDATE ON RADIOLOGIST REPORT, STATED "IT'S BEING READ RIGHT NOW"
[2019-12-01] MEDS ORDERED: MAALOX/HYOSCYAMINE/LIDOCAINE 45 ML BTL ONE (02:30)
[2019-12-01] MEDS ORDERED: MAALOX/HYOSCYAMINE/LIDOCAINE 45 ML BTL PO ONE (02:30)
--- NOTE | 2019-12-01 02:35 | NUR ---
PATIENT MEDICATED PER EMAR, TOLERATED WELL. XRAY STILL PENDING
--- NOTE | 2019-12-01 03:10 | NUR ---
erp to room to discuss discharge
--- NOTE | 2019-12-01 03:32 | NUR ---
PATIENT GIVEN DISCHARGE INSTRUCTIONS, PATIENT STATES "I DON'T KNOW WHY I'M BEING DISCHARGED. I NEED TO STAY HERE. I DON'T HAVE CLOTHES TO GO HOME IN. I NEED THIS HOSPITAL GOWN, I'M ALWAYS DISCHARGED WITH THIS GOWN". EXPLAINED TO PATIENT THAT DR. WOODSON WAS IN HER ROOM 10 MINUTES AGO DISCUSSING AND EXPLAINING RESULTS AND REASON FOR DISCHARGE, EXPLAINED THAT PAITENT CANNOT LEAVE WITH HOSPITAL GOWNS. PAITENT CAME [facility] IN OWN CLOTHES. RUDY CALLED TO GET PATIENT DRESSED IN OWN CLOTHES AND ESCORTED TO DISCHARGE.
[2019-12-01 03:35] VITALS: BP 118/87
== END 2019-12-01 03:38 | disposition home or self-care (01) ==
LOC: ED 12-01 00:41
DX: K29.00 Acute gastritis without bleeding (principal); K26.3 Acute duodenal ulcer without hemorrhage or perforation; N30.00 Acute cystitis without hematuria; J44.9 Chronic obstructive pulmonary disease, unspecified; K21.9 Gastro-esophageal reflux disease without esophagitis; F17.200 Nicotine dependence, unspecified, uncomplicated; Z98.84 Bariatric surgery status
CPT/HCPCS: 36415; 74021; 80053; 81001; 83690; 85025; 87086; 96374; 96375; 96376; 99284; J1170; J2405; J2765

== ENCOUNTER 2020-01-02 18:16 | Inpatient (IN) | payer MEDICAID ==
[~2020-01-02] VITALS: Ht 170.2 cm; Wt 95.6 kg
[2020-01-02] MEDS ORDERED: SODIUM CHLORIDE 0.9% 1,000 ML IV ONE ×2 (19:13→20:28)
[2020-01-02] MEDS ORDERED: HYDROmorphone 1 MG/ML, 1ML INJ ONE (19:18)
[2020-01-02] MEDS ORDERED: ONDANSETRON 2MG/ML, 2ML ONE (19:18)
[2020-01-02] MEDS ORDERED: PANTOPRAZOLE 40 MG IV ONE (19:18)
[2020-01-02] MEDS ORDERED: PANTOPRAZOLE 40 MG IV IVPush ONE (19:30)
[2020-01-02] MEDS ORDERED: SODIUM CHLORIDE FLUSH 10ML SYR IVF ONE ×2 (19:30→20:30)
[2020-01-02] MEDS ORDERED: ONDANSETRON 2MG/ML, 2ML IVPush ONE (19:30)
[2020-01-02] MEDS ORDERED: HYDROmorphone 1 MG/ML, 1ML INJ IVPush PRN (19:30)
[2020-01-02 19:45] LABS: BASOPHILS # (AUTO) 0.06 x10^3/uL (0-0.1); BASOPHILS % (AUTO) 1 % (0-1); EOSINOPHILS # (AUTO) 0.08 x10^3/uL (0-0.4); EOSINOPHILS % (AUTO) 1 % (1-7); LYMPHOCYTES # (AUTO) 1.97 x10^3/uL (1-3.4); LYMPHOCYTES % (AUTO) 24 % (22-44); MD NO; MEAN CORPUSCULAR HEMOGLOBIN 26.6 pg (27.0-34.8); MEAN CORPUSCULAR HGB CONC 32.1 g/dL (32.4-35.8); MEAN CORPUSCULAR VOLUME 82.9 fL (80-100); MEAN PLATELET VOLUME 8.6 fL (7.4-10.4); MONOCYTES # (AUTO) 0.71 x10^3/uL (0.2-0.8); MONOCYTES % (AUTO) 9 % (2-9); NEUTROPHILS # (AUTO) 5.23 x10^3/uL (1.8-6.8); NEUTROPHILS % (AUTO) 65 % (42-75); PLATELET COUNT 298 x10^3/uL (130-400); RED BLOOD COUNT 5.84 x10^6/uL (3.82-5.3); RED CELL DISTRIBUTION WIDTH 20.2 % (9.6-15.2)
--- NOTE | 2020-01-02 19:50 | NUR ---
REPORT RECEIVED FROM JOSÉ MIGUEL RICHARDSON. PT MEDICATED PER MAR
[2020-01-02 19:51] LABS: ALANINE AMINOTRANSFERASE 28 U/L (12-78); ALBUMIN 3.1 g/dL (3.4-5.0); ANION GAP 9 mmol/L (5-15); CALCIUM 9.3 mg/dL (8.5-10.1); CHLORIDE 108 mmol/L (98-107); CREATININE 0.93 mg/dL (0.55-1.02)
[2020-01-02 19:53] LABS: ALKALINE PHOSPHATASE 64 U/L (45-117); BILIRUBIN,TOTAL 2.1 mg/dL (0.2-1.0); TOTAL PROTEIN 8.2 g/dL (6.4-8.2)
[2020-01-02] MEDS ORDERED: MAALOX/HYOSCYAMINE/LIDOCAINE 45 ML BTL ONE (20:07)
--- NOTE | 2020-01-02 20:26 | NUR ---
PT REPORTS PAIN AND NAUSEA IMPROVEMENT
[2020-01-02] MEDS ORDERED: MAALOX/HYOSCYAMINE/LIDOCAINE 45 ML BTL PO ONE (20:30)
--- NOTE | 2020-01-02 21:06 | NUR ---
PT TO CT AT THIS TIME. PT PUKED UP HALF OF THE CONTRAST. STILL GOING TO CT
[2020-01-02 22:21] VITALS: BP 113/78
[2020-01-02] MEDS ORDERED: DOCUSATE 100 MG CAPSULE PO PRN (22:30)
[2020-01-02] MEDS ORDERED: ACETAMINOPHEN 325 MG TABLET PO PRN (22:30)
[2020-01-02] MEDS ORDERED: POLYETHYLENE GLYCOL 17 GM PACKET PO PRN (22:30)
[2020-01-02] MEDS ORDERED: BISACODYL 10 MG SUPP PR PRN (22:30)
[2020-01-02] MEDS ORDERED: POTASSIUM CHLORIDE 20 MEQ TAB.ER.PRT PO ONE (22:30)
[2020-01-02] MEDS: ONDANSETRON 2MG/ML, 2ML IVPush PRN (23:18)
[2020-01-02] MEDS: KETOROLAC 30 MG/1 ML IV PRN (23:18)
[2020-01-02] MEDS: OXYcodone IR 5MG TABLET PO PRN (23:19)
[2020-01-03] MEDS: SODIUM CHLORIDE 0.9% 1,000 ML IV SCH ×2 (00:45→07:38)
[2020-01-03 01:38] VITALS: BP 103/68
[2020-01-03] MEDS: KETOROLAC 30 MG/1 ML IV PRN ×3 (06:03→21:39)
[2020-01-03] MEDS: ONDANSETRON 2MG/ML, 2ML IVPush PRN (06:04)
[2020-01-03 06:29] LABS: BASOPHILS # (AUTO) 0.02 x10^3/uL (0-0.1); BASOPHILS % (AUTO) 0 % (0-1); EOSINOPHILS # (AUTO) 0.16 x10^3/uL (0-0.4); EOSINOPHILS % (AUTO) 3 % (1-7); LYMPHOCYTES # (AUTO) 1.82 x10^3/uL (1-3.4); LYMPHOCYTES % (AUTO) 34 % (22-44); MD NO; MEAN CORPUSCULAR HEMOGLOBIN 26.9 pg (27.0-34.8); MEAN CORPUSCULAR HGB CONC 32.1 g/dL (32.4-35.8); MEAN CORPUSCULAR VOLUME 83.6 fL (80-100); MEAN PLATELET VOLUME 8.8 fL (7.4-10.4); MONOCYTES # (AUTO) 0.53 x10^3/uL (0.2-0.8); MONOCYTES % (AUTO) 10 % (2-9); NEUTROPHILS # (AUTO) 2.89 x10^3/uL (1.8-6.8); NEUTROPHILS % (AUTO) 53 % (42-75); PLATELET COUNT 207 x10^3/uL (130-400); RED BLOOD COUNT 4.43 x10^6/uL (3.82-5.3); RED CELL DISTRIBUTION WIDTH 20.1 % (9.6-15.2)
[2020-01-03 06:32] LABS: ALANINE AMINOTRANSFERASE 23 U/L (12-78); ALBUMIN 2.3 g/dL (3.4-5.0); CALCIUM 7.4 mg/dL (8.5-10.1); CHLORIDE 111 mmol/L (98-107); CREATININE 0.61 mg/dL (0.55-1.02)
[2020-01-03 06:43] LABS: ALKALINE PHOSPHATASE 46 U/L (45-117); ANION GAP 9 mmol/L (5-15); BILIRUBIN,TOTAL 1.2 mg/dL (0.2-1.0); TOTAL PROTEIN 5.8 g/dL (6.4-8.2)
[2020-01-03] MEDS ORDERED: SUCRALFATE 1 GM TABLET PO SCH (07:00)
[2020-01-03] MEDS: FAMOTIDINE 20 MG/2 ML IVPush SCH (07:39)
[2020-01-03] MEDS: PANTOPRAZOLE 40 MG IV IVPush SCH (07:39)
[2020-01-03] MEDS ORDERED: POTASSIUM CHLORIDE 40 MEQ in SODIUM CHLORIDE 0.9% 500 ML IV ONE (08:00)
[2020-01-03] MEDS ORDERED: PROMETHAZINE 25 MG/ML, 1ML IM PRN (09:30)
[2020-01-03] MEDS ORDERED: LORazepam 2 MG/ML, 1ML IVPush PRN (09:30)
[2020-01-03] MEDS: D5%-0.45NACL+KCL 20MEQ 1,000 ML IV SCH ×2 (09:57→20:17)
[2020-01-03] MEDS: SUCRALFATE 1 GM/10 ML UDC PO SCH ×3 (09:57→20:00)
[2020-01-03] MEDS: PROCHLORPERAZINE 5 MG/ML, 2ML IVPush PRN ×2 (09:57→20:17)
[2020-01-03 10:46] VITALS: BP 106/73
[2020-01-03] MEDS ORDERED: LORazepam 2 MG/ML, 1ML ONE (11:10)
[2020-01-03 13:27] LABS: FREE T4 (FREE THYROXINE) 1.25 ng/dL (0.76-1.46)
[2020-01-03 15:09] VITALS: BP 94/60
[2020-01-03 15:32] LABS: MICROSCOPIC INDICATED
[2020-01-03] MEDS: OXYcodone IR 5MG TABLET PO PRN ×2 (15:45→21:39)
[2020-01-03 15:49] LABS: CULTURE INDICATED? NO
[2020-01-03 19:19] VITALS: BP 106/61
[2020-01-04 00:57] VITALS: BP 106/69
[2020-01-04] MEDS ORDERED: MAALOX/HYOSCYAMINE/LIDOCAINE 45 ML BTL PO ONE (04:30)
[2020-01-04] MEDS: ONDANSETRON 2MG/ML, 2ML IVPush PRN (04:35)
[2020-01-04] MEDS: OXYcodone IR 5MG TABLET PO PRN ×2 (04:35→17:34)
[2020-01-04] MEDS: KETOROLAC 30 MG/1 ML IV PRN ×2 (04:41→11:57)
[2020-01-04 05:48] LABS: ALBUMIN 2.2 g/dL (3.4-5.0); ANION GAP 7 mmol/L (5-15); CALCIUM 8.1 mg/dL (8.5-10.1); CHLORIDE 113 mmol/L (98-107)
[2020-01-04 05:49] LABS: CREATININE 0.62 mg/dL (0.55-1.02)
[2020-01-04 06:00] LABS: BASOPHILS # (AUTO) 0.01 x10^3/uL (0-0.1); BASOPHILS % (AUTO) 1 % (0-1); EOSINOPHILS % (AUTO) 3 % (1-7); LYMPHOCYTES # (AUTO) 1.25 x10^3/uL (1-3.4); LYMPHOCYTES % (AUTO) 40 % (22-44); MD NO; MEAN CORPUSCULAR HEMOGLOBIN 26.7 pg (27.0-34.8); MEAN CORPUSCULAR HGB CONC 32.2 g/dL (32.4-35.8); MEAN CORPUSCULAR VOLUME 82.9 fL (80-100); MEAN PLATELET VOLUME 8.9 fL (7.4-10.4); MONOCYTES # (AUTO) 0.25 x10^3/uL (0.2-0.8); MONOCYTES % (AUTO) 8 % (2-9); NEUTROPHILS # (AUTO) 1.53 x10^3/uL (1.8-6.8); NEUTROPHILS % (AUTO) 49 % (42-75); PLATELET COUNT 145 x10^3/uL (130-400); RED BLOOD COUNT 4.26 x10^6/uL (3.82-5.3)
[2020-01-04] MEDS ORDERED: POTASSIUM CHLORIDE 20 MEQ in SODIUM CHLORIDE 0.9% 250 ML IV ONE (06:30)
[2020-01-04] MEDS: D5%-0.45NACL+KCL 20MEQ 1,000 ML IV SCH (06:33)
[2020-01-04] MEDS: PANTOPRAZOLE 40 MG IV IVPush SCH (07:35)
[2020-01-04] MEDS: NICOTINE 21 MG/24 HR PATCH.TD24 TD SCH (07:35)
[2020-01-04] MEDS: SUCRALFATE 1 GM/10 ML UDC PO SCH ×3 (07:35→16:00)
[2020-01-04] MEDS: FAMOTIDINE 20 MG/2 ML IVPush SCH (07:35)
[2020-01-04 07:50] VITALS: BP 115/53
[2020-01-04 07:57] VITALS: BP 92/61
[2020-01-04] MEDS: PROCHLORPERAZINE 5 MG/ML, 2ML IVPush PRN (11:52)
[2020-01-04 12:50] VITALS: BP 102/71
[2020-01-04] MEDS: LORazepam 2 MG/ML, 1ML IVPush PRN (19:32)
[2020-01-04 20:11] VITALS: BP 91/65
[2020-01-05] MEDS: LORazepam 2 MG/ML, 1ML IVPush PRN ×2 (00:02→05:44)
[2020-01-05] MEDS: SUCRALFATE 1 GM/10 ML UDC PO SCH ×5 (00:02→20:56)
[2020-01-05 00:15] VITALS: BP 93/54
[2020-01-05 06:26] LABS: MEAN CORPUSCULAR HGB CONC 32.4 g/dL (32.4-35.8); MEAN CORPUSCULAR VOLUME 83.5 fL (80-100); MEAN PLATELET VOLUME 8.6 fL (7.4-10.4); PLATELET COUNT 164 x10^3/uL (130-400); RED BLOOD COUNT 4.25 x10^6/uL (3.82-5.3); RED CELL DISTRIBUTION WIDTH 19.8 % (9.6-15.2)
[2020-01-05 06:33] LABS: ALBUMIN 2.1 g/dL (3.4-5.0); ANION GAP 8 mmol/L (5-15); CHLORIDE 116 mmol/L (98-107); CREATININE 0.61 mg/dL (0.55-1.02)
[2020-01-05 06:56] LABS: BASOPHILS # (AUTO) 0.01 x10^3/uL (0-0.1); BASOPHILS % (AUTO) 0 % (0-1); EOSINOPHILS # (AUTO) 0.09 x10^3/uL (0-0.4); EOSINOPHILS % (AUTO) 3 % (1-7); LYMPHOCYTES # (AUTO) 0.94 x10^3/uL (1-3.4); LYMPHOCYTES % (AUTO) 32 % (22-44); MD SCAN; MONOCYTES # (AUTO) 0.27 x10^3/uL (0.2-0.8); MONOCYTES % (AUTO) 9 % (2-9); NEUTROPHILS # (AUTO) 1.62 x10^3/uL (1.8-6.8); NEUTROPHILS % (AUTO) 55 % (42-75)
[2020-01-05 07:37] VITALS: BP 114/77
[2020-01-05] MEDS: PANTOPRAZOLE 40 MG IV IVPush SCH (08:23)
[2020-01-05] MEDS: NICOTINE 21 MG/24 HR PATCH.TD24 TD SCH (08:26)
[2020-01-05 12:44] VITALS: BP 111/76
[2020-01-05] MEDS: ONDANSETRON 2MG/ML, 2ML IVPush PRN ×2 (13:35→19:56)
[2020-01-05] MEDS ORDERED: HYDROmorphone 1 MG/ML, 1ML INJ IV ONE ×2 (14:00→17:30)
[2020-01-05] MEDS: OXYcodone IR 5MG TABLET PO PRN ×2 (15:11→21:35)
[2020-01-05] MEDS: KETOROLAC 30 MG/1 ML IV PRN (15:11)
[2020-01-05] MEDS: PROCHLORPERAZINE 5 MG/ML, 2ML IVPush PRN (17:54)
[2020-01-05 19:45] VITALS: BP 90/63
[2020-01-05] MEDS ORDERED: MAALOX/HYOSCYAMINE/LIDOCAINE 45 ML BTL PO ONE (21:30)
[2020-01-06] MEDS: KETOROLAC 30 MG/1 ML IV PRN ×3 (00:38→23:18)
[2020-01-06] MEDS: LORazepam 2 MG/ML, 1ML IVPush PRN ×2 (00:38→15:19)
[2020-01-06 03:00] VITALS: BP 91/62
[2020-01-06] MEDS: PANTOPRAZOLE 20MG TABLET PO SCH (05:11)
[2020-01-06 06:36] LABS: BASOPHILS # (AUTO) 0.01 x10^3/uL (0-0.1); BASOPHILS % (AUTO) 1 % (0-1); EOSINOPHILS # (AUTO) 0.09 x10^3/uL (0-0.4); EOSINOPHILS % (AUTO) 3 % (1-7); LYMPHOCYTES # (AUTO) 1.28 x10^3/uL (1-3.4); LYMPHOCYTES % (AUTO) 42 % (22-44); MD NO; MEAN CORPUSCULAR HEMOGLOBIN 26.8 pg (27.0-34.8); MEAN CORPUSCULAR HGB CONC 32.2 g/dL (32.4-35.8); MEAN CORPUSCULAR VOLUME 83.3 fL (80-100); MEAN PLATELET VOLUME 8.8 fL (7.4-10.4); MONOCYTES % (AUTO) 10 % (2-9); NEUTROPHILS # (AUTO) 1.37 x10^3/uL (1.8-6.8); NEUTROPHILS % (AUTO) 45 % (42-75); PLATELET COUNT 156 x10^3/uL (130-400); RED BLOOD COUNT 4.14 x10^6/uL (3.82-5.3); RED CELL DISTRIBUTION WIDTH 20.3 % (9.6-15.2)
[2020-01-06 06:41] LABS: ALANINE AMINOTRANSFERASE 28 U/L (12-78); ANION GAP 8 mmol/L (5-15); CALCIUM 8.1 mg/dL (8.5-10.1); CHLORIDE 113 mmol/L (98-107); CREATININE 0.61 mg/dL (0.55-1.02)
[2020-01-06 06:44] LABS: ALKALINE PHOSPHATASE 48 U/L (45-117); BILIRUBIN,TOTAL 0.5 mg/dL (0.2-1.0); TOTAL PROTEIN 5.3 g/dL (6.4-8.2)
[2020-01-06] MEDS ORDERED: POTASSIUM CHLORIDE 20 MEQ in SODIUM CHLORIDE 0.9% 250 ML IV ONE (07:00)
[2020-01-06] MEDS: SUCRALFATE 1 GM/10 ML UDC PO SCH ×4 (07:00→22:33)
[2020-01-06] MEDS: OXYcodone IR 5MG TABLET PO PRN ×2 (13:36→19:51)
[2020-01-06] MEDS: ONDANSETRON 2MG/ML, 2ML IVPush PRN ×2 (13:36→19:43)
[2020-01-06] MEDS: NICOTINE 21 MG/24 HR PATCH.TD24 TD SCH (13:37)
[2020-01-06 14:25] VITALS: BP 120/94
[2020-01-06] MEDS ORDERED: HYDROmorphone 1 MG/ML, 1ML INJ IM PRN (16:30)
[2020-01-06 17:40] LABS: MICROSCOPIC INDICATED
[2020-01-06 17:46] LABS: CULTURE INDICATED? YES
[2020-01-06] MEDS: NS + 20MEQ KCL 1,000 ML IV SCH (18:00)
[2020-01-06 19:33] VITALS: BP 110/81
[2020-01-06] MEDS: HYDROmorphone 1 MG/ML, 1ML INJ IV PRN (22:34)
[2020-01-07] MEDS: OXYcodone IR 5MG TABLET PO PRN (02:28)
[2020-01-07] MEDS: ONDANSETRON 2MG/ML, 2ML IVPush PRN ×2 (02:28→22:17)
[2020-01-07 02:32] VITALS: BP 117/81
[2020-01-07] MEDS: HYDROmorphone 1 MG/ML, 1ML INJ IV PRN ×4 (04:00→22:51)
[2020-01-07] MEDS: PANTOPRAZOLE 20MG TABLET PO SCH (05:48)
[2020-01-07] MEDS: SUCRALFATE 1 GM/10 ML UDC PO SCH ×4 (07:00→21:16)
[2020-01-07 07:30] VITALS: BP 94/58
[2020-01-07] MEDS: NICOTINE 21 MG/24 HR PATCH.TD24 TD SCH (08:19)
[2020-01-07] MEDS: PROCHLORPERAZINE 5 MG/ML, 2ML IVPush PRN ×2 (09:16→16:49)
[2020-01-07 09:36] LABS: BASOPHILS # (AUTO) 0.02 x10^3/uL (0-0.1); BASOPHILS % (AUTO) 1 % (0-1); EOSINOPHILS # (AUTO) 0.09 x10^3/uL (0-0.4); EOSINOPHILS % (AUTO) 3 % (1-7); LYMPHOCYTES # (AUTO) 1.09 x10^3/uL (1-3.4); LYMPHOCYTES % (AUTO) 32 % (22-44); MD NO; MEAN CORPUSCULAR HEMOGLOBIN 26.5 pg (27.0-34.8); MEAN CORPUSCULAR HGB CONC 31.7 g/dL (32.4-35.8); MEAN CORPUSCULAR VOLUME 83.5 fL (80-100); MEAN PLATELET VOLUME 8.6 fL (7.4-10.4); MONOCYTES # (AUTO) 0.34 x10^3/uL (0.2-0.8); MONOCYTES % (AUTO) 10 % (2-9); NEUTROPHILS # (AUTO) 1.85 x10^3/uL (1.8-6.8); NEUTROPHILS % (AUTO) 55 % (42-75); PLATELET COUNT 129 x10^3/uL (130-400); RED BLOOD COUNT 4.36 x10^6/uL (3.82-5.3); RED CELL DISTRIBUTION WIDTH 20.2 % (9.6-15.2)
[2020-01-07 09:51] LABS: ALBUMIN 2.3 g/dL (3.4-5.0); ANION GAP 4 mmol/L (5-15); CALCIUM 8.3 mg/dL (8.5-10.1); CHLORIDE 114 mmol/L (98-107)
[2020-01-07 09:55] LABS: ALANINE AMINOTRANSFERASE 28 U/L (12-78); ALKALINE PHOSPHATASE 52 U/L (45-117); BILIRUBIN,TOTAL 0.9 mg/dL (0.2-1.0); CREATININE 0.53 mg/dL (0.55-1.02); TOTAL PROTEIN 5.6 g/dL (6.4-8.2)
[2020-01-07] MEDS: NS + 20MEQ KCL 1,000 ML IV SCH (12:43)
[2020-01-07 16:00] VITALS: BP 105/75
[2020-01-07] MEDS ORDERED: PANTOPRAZOLE 20MG TABLET PO SCH (21:00)
[2020-01-07 21:24] VITALS: BP 108/67
[2020-01-08] MEDS: PROCHLORPERAZINE 5 MG/ML, 2ML IVPush PRN (00:02)
[2020-01-08 00:42] VITALS: BP 106/75
[2020-01-08] MEDS: LORazepam 2 MG/ML, 1ML IVPush PRN (01:04)
[2020-01-08] MEDS: SUCRALFATE 1 GM/10 ML UDC PO SCH ×4 (05:16→19:41)
[2020-01-08 07:07] VITALS: BP 99/67
[2020-01-08] MEDS ORDERED: CHLORHEXIDINE 15 ML UDC MM STA (08:34)
[2020-01-08] MEDS ORDERED: CHLORHEXIDINE 15 ML UDC ONE (08:36)
[2020-01-08] MEDS ORDERED: FENTANYL PF 100 MCG/2ML ONE ×2 (08:48→09:36)
[2020-01-08] MEDS ORDERED: FENTANYL PF 100 MCG/2ML IV PRN (09:00)
[2020-01-08] MEDS: HYDROmorphone 1 MG/ML, 1ML INJ IV PRN ×3 (10:38→22:40)
[2020-01-08] MEDS: METOCLOPRAMIDE 10MG TABLET PO SCH ×3 (10:39→19:41)
[2020-01-08] MEDS: NICOTINE 21 MG/24 HR PATCH.TD24 TD SCH (10:40)
[2020-01-08] MEDS: PANTOPRAZOLE GRAN. PKT 40 MG PO SCH ×2 (10:40→16:38)
[2020-01-08] MEDS: NS + 20MEQ KCL 1,000 ML IV SCH (11:08)
[2020-01-08 11:15] VITALS: BP 92/64
[2020-01-08] MEDS ORDERED: CEFAZOLIN 1,000 MG ONE (11:23)
[2020-01-08] MEDS ORDERED: SUCCINYLCHOLINE 20 MG/ML, 10ML ONE (11:23)
[2020-01-08] MEDS ORDERED: PROPOFOL 10 MG/ML, 20ML ONE (11:23)
[2020-01-08] MEDS ORDERED: ONDANSETRON 2MG/ML, 2ML ONE (11:23)
[2020-01-08] MEDS ORDERED: DEXAMETHASONE 4 MG/ML, 1ML ONE (11:23)
[2020-01-08] MEDS ORDERED: ROCURONIUM 10MG/ML,5ML ONE (11:23)
[2020-01-08] MEDS ORDERED: GLYCOPYRROLATE 0.2MG/1ML, 5ML ONE (11:23)
[2020-01-08] MEDS ORDERED: NEOSTIGMINE 1 MG/ML, 10ML ONE (11:23)
[2020-01-08 12:59] VITALS: BP 112/73
[2020-01-08] MEDS ORDERED: HYDROmorphone 2 MG/ML, 1ML ONE ×2 (16:31→22:18)
[2020-01-08 19:20] VITALS: BP 117/83
[2020-01-08] MEDS ORDERED: FAMOTIDINE 40 MG TABLET ONE (19:31)
[2020-01-08] MEDS: ONDANSETRON 2MG/ML, 2ML IVPush PRN (19:41)
[2020-01-08] MEDS: FAMOTIDINE 40 MG/5 ML ORAL SUSP PO SCH (20:46)
[2020-01-08] MEDS: OXYcodone IR 5MG TABLET PO PRN (20:46)
[2020-01-08] MEDS: MAALOX/HYOSCYAMINE/LIDOCAINE 45 ML BTL PO PRN (20:46)
[2020-01-09 00:15] VITALS: BP 97/63
[2020-01-09 01:48] LABS: MICROSCOPIC INDICATED
[2020-01-09] MEDS: LORazepam 2 MG/ML, 1ML IVPush PRN (03:01)
[2020-01-09] MEDS ORDERED: HYDROmorphone 2 MG/ML, 1ML ONE ×2 (04:14→23:02)
[2020-01-09] MEDS: HYDROmorphone 1 MG/ML, 1ML INJ IV PRN ×4 (04:34→23:21)
[2020-01-09] MEDS: PROCHLORPERAZINE 5 MG/ML, 2ML IVPush PRN ×2 (04:34→23:14)
[2020-01-09] MEDS: NS + 20MEQ KCL 1,000 ML IV SCH (06:08)
[2020-01-09] MEDS: NICOTINE 21 MG/24 HR PATCH.TD24 TD SCH (10:51)
[2020-01-09] MEDS: SUCRALFATE 1 GM/10 ML UDC PO SCH ×4 (10:51→19:54)
[2020-01-09] MEDS: METOCLOPRAMIDE 10MG TABLET PO SCH ×4 (10:52→20:01)
[2020-01-09] MEDS: PANTOPRAZOLE GRAN. PKT 40 MG PO SCH ×2 (11:47→16:54)
[2020-01-09] MEDS: HYOSCYAMINE 0.125 MG TAB.SUBL SL SCH ×4 (11:47→23:14)
[2020-01-09 17:34] VITALS: BP 105/74
[2020-01-09] MEDS ORDERED: HYDROmorphone 2MG TABLET PO PRN (18:00)
[2020-01-09] MEDS: MAALOX/HYOSCYAMINE/LIDOCAINE 45 ML BTL PO PRN (19:53)
[2020-01-09] MEDS: OXYcodone IR 5MG TABLET PO PRN (19:55)
[2020-01-09] MEDS: FAMOTIDINE 40 MG/5 ML ORAL SUSP PO SCH (19:56)
[2020-01-09 20:00] VITALS: BP 134/91
[2020-01-10 02:15] VITALS: BP 94/64
[2020-01-10] MEDS ORDERED: HYDROmorphone 2 MG/ML, 1ML ONE (06:10)
[2020-01-10] MEDS: PROCHLORPERAZINE 5 MG/ML, 2ML IVPush PRN (06:15)
[2020-01-10] MEDS: HYOSCYAMINE 0.125 MG TAB.SUBL SL SCH ×5 (06:16→23:48)
[2020-01-10] MEDS: HYDROmorphone 1 MG/ML, 1ML INJ IV PRN ×2 (06:16→12:20)
[2020-01-10 06:52] LABS: ANION GAP 6 mmol/L (5-15); CALCIUM 8.1 mg/dL (8.5-10.1); CHLORIDE 114 mmol/L (98-107)
[2020-01-10 06:54] LABS: CREATININE 0.39 mg/dL (0.55-1.02)
[2020-01-10 07:45] VITALS: BP 101/77
[2020-01-10] MEDS: SUCRALFATE 1 GM/10 ML UDC PO SCH ×4 (08:40→19:50)
[2020-01-10] MEDS: PANTOPRAZOLE GRAN. PKT 40 MG PO SCH ×2 (08:41→16:02)
[2020-01-10] MEDS: METOCLOPRAMIDE 10MG TABLET PO SCH ×4 (08:41→19:52)
[2020-01-10] MEDS ORDERED: NICOTINE 21 MG/24 HR PATCH.TD24 TD SCH (09:00)
[2020-01-10] MEDS: NICOTINE 14MG/24 HR PATCH.TD24 TD SCH (11:22)
[2020-01-10 12:41] VITALS: BP 101/66
[2020-01-10] MEDS ORDERED: OXYcodone IR 5MG TABLET PO PRN (17:00)
[2020-01-10 19:29] VITALS: BP 102/69
[2020-01-10] MEDS: MAALOX/HYOSCYAMINE/LIDOCAINE 45 ML BTL PO PRN (19:52)
[2020-01-10] MEDS: FAMOTIDINE 40 MG/5 ML ORAL SUSP PO SCH (19:52)
[2020-01-10] MEDS: LORazepam 2 MG/ML, 1ML IVPush PRN (23:49)
[2020-01-11] MEDS: PROCHLORPERAZINE 5 MG/ML, 2ML IVPush PRN (01:10)
[2020-01-11 01:23] VITALS: BP 105/73
[2020-01-11] MEDS: HYOSCYAMINE 0.125 MG TAB.SUBL SL SCH ×5 (03:00→19:47)
[2020-01-11 05:29] LABS: ANION GAP 6 mmol/L (5-15); CHLORIDE 112 mmol/L (98-107); CREATININE 0.41 mg/dL (0.55-1.02)
[2020-01-11] MEDS: METOCLOPRAMIDE 10MG TABLET PO SCH ×3 (07:00→15:46)
[2020-01-11] MEDS: SUCRALFATE 1 GM/10 ML UDC PO SCH ×3 (07:00→15:45)
[2020-01-11 07:19] VITALS: BP 101/66
[2020-01-11] MEDS: PANTOPRAZOLE GRAN. PKT 40 MG PO SCH ×2 (07:30→15:46)
[2020-01-11 13:57] VITALS: BP 122/77
[2020-01-11] MEDS: NICOTINE 14MG/24 HR PATCH.TD24 TD SCH (15:16)
[2020-01-11] MEDS: ONDANSETRON 2MG/ML, 2ML IVPush PRN (15:52)
[2020-01-11] MEDS ORDERED: OXYcodone IR 5MG TABLET PO PRN (16:00)
[2020-01-11] MEDS: MAALOX/HYOSCYAMINE/LIDOCAINE 45 ML BTL PO PRN (16:34)
== END 2020-01-11 20:15 | disposition left against medical advice (07) | DRG 243 ==
LOC: ED 18:48 → EDIP 21:27 → 3N 22:03
PROVIDERS: ADMIT Family Medicine; ATTEND Internal Medicine Infectious Disease
PROC: 0DJ08ZZ Inspection of Upper Intestinal Tract, Via Natural or Artificial Opening Endoscopic (ICD-10-PCS; principal; 2020-01-08 09:15)
DX: K22.2 Esophageal obstruction (principal); K76.0 Fatty (change of) liver, not elsewhere classified; F13.20 Sedative, hypnotic or anxiolytic dependence, uncomplicated; J44.9 Chronic obstructive pulmonary disease, unspecified; K22.10 Ulcer of esophagus without bleeding; K26.9 Duodenal ulcer, unspecified as acute or chronic, without hemorrhage or perforation; E66.9 Obesity, unspecified; M54.9 Dorsalgia, unspecified; G89.29 Other chronic pain; F17.210 Nicotine dependence, cigarettes, uncomplicated; K21.9 Gastro-esophageal reflux disease without esophagitis; E87.6 Hypokalemia; K21.0 Gastro-esophageal reflux disease with esophagitis; Z87.11 Personal history of peptic ulcer disease; Z90.49 Acquired absence of other specified parts of digestive tract; Z98.51 Tubal ligation status; Z68.33 Body mass index [BMI] 33.0-33.9, adult; Z79.899 Other long term (current) drug therapy; Z88.6 Allergy status to analgesic agent
CPT/HCPCS: 36415; 74177; 74240; 76700; 80048; 80053; 80069; 81001; 82150; 82533; 83690; 83735; 84100; 84439; 84443; 84481; 85025; 87086; 93005; 93975; 96361; 96374; 96375; 99285; G0378; J0690; J1100; J1170; J1885; J2405; J2704; J2710; J3010; J3480; C9113; J0330; J0780; J2060; J3490; J7030; J7040; J7050

== ENCOUNTER 2020-01-14 13:40 | Inpatient (IN) | payer MEDICAID ==
[~2020-01-14] VITALS: Ht 170.2 cm; Wt 94.4 kg
[~2020-01-14 13:40] MED LIST changes: -CARI350T; +CARI350T PO
[2020-01-14 14:45] LABS: CULTURE INDICATED? YES; MICROSCOPIC INDICATED
[2020-01-14] MEDS ORDERED: CEFTRIAXONE PMX 1GM/50ML 50 ML IV ONE (15:30)
[2020-01-14] MEDS ORDERED: PANTOPRAZOLE 40 MG IV IVPush ONE (15:30)
[2020-01-14] MEDS ORDERED: ONDANSETRON 2MG/ML, 2ML IVPush ONE ×2 (15:30→17:00)
[2020-01-14] MEDS ORDERED: SODIUM CHLORIDE 0.9% 1,000ML IVBOLUS ONE (15:30)
--- NOTE | 2020-01-14 15:42 | NUR ---
PT SITTING TOWARD END OF GURNEY. PT RETCHING, "ITS JUST FOAM" ORDERS PLACED BY MD. LOREDO TO MONITOR.
[2020-01-14] MEDS ORDERED: ONDANSETRON 2MG/ML, 2ML ONE (15:56)
[2020-01-14] MEDS ORDERED: PANTOPRAZOLE 40 MG IV ONE (15:56)
--- NOTE | 2020-01-14 15:58 | NUR ---
PT ASKING FOR PAIN MEDS MULTIPLE TIMES. DISCUSSED WITH DR WHEELER. AWAITING ORDERS.
[2020-01-14] MEDS ORDERED: CEFTRIAXONE PMX 1GM/50ML 50 ML ONE (16:00)
[2020-01-14 16:04] LABS: ALANINE AMINOTRANSFERASE 23 U/L (12-78); ALBUMIN 2.3 g/dL (3.4-5.0); ANION GAP 9 mmol/L (5-15); CALCIUM 7.9 mg/dL (8.5-10.1); CHLORIDE 114 mmol/L (98-107); CREATININE 0.49 mg/dL (0.55-1.02)
[2020-01-14 16:06] LABS: ALKALINE PHOSPHATASE 61 U/L (45-117); TOTAL PROTEIN 5.9 g/dL (6.4-8.2)
--- NOTE | 2020-01-14 16:10 | NUR ---
DISCUSSED WITH DR WHEELER IF BLOOD CULTURES NEEDED PRIOR TO ABX INFUSION. AWAITING FURTHER ORDERS.
[2020-01-14] MEDS ORDERED: HYDROmorphone 1 MG/ML, 1ML INJ ONE ×2 (16:39→17:06)
--- NOTE | 2020-01-14 16:41 | NUR ---
OIL DIPPER AT BEDSIDE FOR BLOOD CULTURES DRAW. PT CONT TO ASK FOR PAIN MEDS/NAUSEA MEDS. PT TO BE MEDICATED PER MAR. PT OOB AT TIMES AT SINK. CONT RETCHING.
[2020-01-14] MEDS: HYDROmorphone 1 MG/ML, 1ML INJ IVPush PRN ×2 (16:42→17:09)
[2020-01-14 17:43] LABS: MEAN CORPUSCULAR HEMOGLOBIN 26.7 pg (27.0-34.8); MEAN CORPUSCULAR HGB CONC 32.7 g/dL (32.4-35.8); MEAN CORPUSCULAR VOLUME 81.9 fL (80-100); MEAN PLATELET VOLUME 7.9 fL (7.4-10.4); PLATELET COUNT 187 x10^3/uL (130-400); RED BLOOD COUNT 4.49 x10^6/uL (3.82-5.3); RED CELL DISTRIBUTION WIDTH 19.8 % (9.6-15.2)
[2020-01-14 17:46] LABS: MD YES
[2020-01-14 17:59] LABS: LYMPH#(MANUAL) 1.37 x10^3/uL (1-3.4); LYMPHS% (MANUAL) 28 % (22-44); MONOS#(MANUAL) 0.39 x10^3/uL (0.3-2.7); MONOS% (MANUAL) 8 % (2-9); SEG#(MANUAL) 3.14 x10^3/uL (1.8-6.8); SEGS% (MANUAL) 64 % (42-75)
[2020-01-14 18:00] LABS: <PLATELET ESTIMATE> ADEQUATE; <PLT MORPHOLOGY> NORMAL PLT MORPH; <RBC MORPHOLOGY> NORMAL
[2020-01-14] MEDS ORDERED: CEFTRIAXONE PMX 1GM/50ML 50 ML IV SCH (18:00)
--- NOTE | 2020-01-14 18:29 | NUR ---
IV WITH BLOOD BACKED UP, UNABLE TO DRAW OR FLUSH. DISCUSSED WITH VINAYAK Gilmore NP ([facility]) FLOOR TO CALL FOR PICC LINE ORDER. PT TO RADIOLOGY VIA CHRISTINA.
[2020-01-14 19:45] VITALS: BP 128/78
[2020-01-14] MEDS: SODIUM CHLORIDE 0.9% 1,000 ML IV SCH (20:28)
[2020-01-14] MEDS: ENOXAPARIN 40 MG/0.4 ML SQ SCH (20:29)
[2020-01-14] MEDS ORDERED: SUCRALFATE 1 GM TABLET PO SCH (21:00)
[2020-01-14] MEDS ORDERED: FAMOTIDINE 20 MG/2 ML IVPush SCH (21:00)
[2020-01-14] MEDS: SUCRALFATE 1 GM/10 ML UDC PO SCH (21:12)
[2020-01-14] MEDS: HYDROmorphone 2 MG/ML, 1ML IVPush PRN (21:13)
[2020-01-15 01:08] VITALS: BP 104/66
[2020-01-15] MEDS: HYDROmorphone 2 MG/ML, 1ML IVPush PRN ×5 (01:17→20:36)
[2020-01-15] MEDS: ONDANSETRON 2MG/ML, 2ML IVPush PRN ×3 (01:17→16:33)
[2020-01-15] MEDS ORDERED: MELATONIN 5 MG TABLET PO PRN (02:30)
[2020-01-15] MEDS: SODIUM CHLORIDE 0.9% 1,000 ML IV SCH (03:48)
[2020-01-15 06:28] VITALS: BP 106/74
[2020-01-15 06:33] LABS: ALBUMIN 2.4 g/dL (3.4-5.0); ANION GAP 9 mmol/L (5-15); CALCIUM 7.8 mg/dL (8.5-10.1); CHLORIDE 110 mmol/L (98-107)
[2020-01-15 06:38] LABS: ALANINE AMINOTRANSFERASE 23 U/L (12-78); ALKALINE PHOSPHATASE 60 U/L (45-117); BILIRUBIN,TOTAL 1.2 mg/dL (0.2-1.0); CREATININE 0.48 mg/dL (0.55-1.02); TOTAL PROTEIN 5.9 g/dL (6.4-8.2)
[2020-01-15] MEDS ORDERED: PANTOPRAZOLE 40 MG IV IVPush SCH (07:30)
[2020-01-15] MEDS ORDERED: HEPARIN 5,000 UNITS/ML, 1ML IV ONE (09:30)
[2020-01-15] MEDS: CARISOPRODOL 350 MG TABLET PO SCH (10:50)
[2020-01-15] MEDS: SUCRALFATE 1 GM/10 ML UDC PO SCH ×4 (10:50→21:58)
[2020-01-15] MEDS: HEPARIN 25,000 UNITS/250ML PMX 250 ML IV PRN (12:02)
[2020-01-15 12:13] VITALS: BP 89/58
[2020-01-15] MEDS ORDERED: POTASSIUM CHLORIDE 40 MEQ in SODIUM CHLORIDE 0.9% 1,000 ML IV SCH (17:53)
[2020-01-15] MEDS: NS + 40MEQ KCL 1,000 ML IV SCH (18:20)
[2020-01-15 19:21] VITALS: BP 103/58
[2020-01-15] MEDS: HEPARIN 5,000 UNITS/ML, 1ML IV PRN (20:12)
[2020-01-15] MEDS: ENOXAPARIN 40 MG/0.4 ML SQ SCH (21:59)
[2020-01-15] MEDS: FAMOTIDINE 20 MG/2 ML IVPush SCH (21:59)
[2020-01-15] MEDS: PANTOPRAZOLE 40 MG IV IVPush SCH (21:59)
[2020-01-16 00:15] VITALS: BP 118/61
[2020-01-16] MEDS: HYDROmorphone 2 MG/ML, 1ML IVPush PRN ×6 (00:34→22:58)
[2020-01-16] MEDS: ONDANSETRON 2MG/ML, 2ML IVPush PRN ×3 (00:54→17:55)
[2020-01-16] MEDS: NS + 40MEQ KCL 1,000 ML IV SCH ×3 (03:01→22:57)
[2020-01-16] MEDS ORDERED: CHLORHEXIDINE 15 ML UDC MM ONE (07:00)
[2020-01-16] MEDS: SUCRALFATE 1 GM/10 ML UDC PO SCH ×4 (07:00→22:57)
[2020-01-16] MEDS ORDERED: CHLORHEXIDINE 15 ML UDC MM STA (07:05)
[2020-01-16] MEDS ORDERED: MIDAZOLAM 1 MG/ML, 2ML ONE (07:15)
[2020-01-16] MEDS ORDERED: PROPOFOL 10 MG/ML, 20ML ONE (07:15)
[2020-01-16] MEDS ORDERED: FENTANYL PF 100 MCG/2ML ONE (07:15)
[2020-01-16] MEDS ORDERED: ROCURONIUM 10 MG/ML,10ML ONE (07:40)
[2020-01-16] MEDS ORDERED: SUCCINYLCHOLINE 20 MG/ML, 10ML ONE (07:40)
[2020-01-16 08:00] VITALS: BP 117/65
[2020-01-16] MEDS ORDERED: FENTANYL PF 100 MCG/2ML IV PRN (08:00)
[2020-01-16] MEDS ORDERED: ONDANSETRON 2MG/ML, 2ML IV PRN (08:00)
[2020-01-16] MEDS ORDERED: HYDROmorphone 2 MG/ML, 1ML IVPush PRN (08:00)
[2020-01-16] MEDS ORDERED: PROMETHAZINE 25 MG/ML, 1ML IV PRN (08:00)
[2020-01-16] MEDS ORDERED: ACETAMINOPHEN 325 MG TABLET PO PRN (08:00)
[2020-01-16] MEDS ORDERED: OXYcodone 5 MG/5 ML ORAL.SOL UDC PO PRN (08:00)
[2020-01-16] MEDS: CARISOPRODOL 350 MG TABLET PO SCH ×2 (09:00→10:28)
[2020-01-16 10:14] LABS: ALANINE AMINOTRANSFERASE 22 U/L (12-78); ALBUMIN 2.1 g/dL (3.4-5.0); ANION GAP 7 mmol/L (5-15); CALCIUM 7.5 mg/dL (8.5-10.1); CHLORIDE 116 mmol/L (98-107); CREATININE 0.46 mg/dL (0.55-1.02)
[2020-01-16 10:16] LABS: ALKALINE PHOSPHATASE 52 U/L (45-117); BILIRUBIN,TOTAL 0.9 mg/dL (0.2-1.0); TOTAL PROTEIN 5.3 g/dL (6.4-8.2)
[2020-01-16] MEDS: ERTAPENEM 1 GM in SODIUM CHLORIDE 0.9% 50 ML IVPB SCH (10:28)
[2020-01-16] MEDS: FAMOTIDINE 20 MG/2 ML IVPush SCH (10:29)
[2020-01-16] MEDS: PANTOPRAZOLE 40 MG IV IVPush SCH ×2 (10:29→21:34)
[2020-01-16 14:37] VITALS: BP 101/59
[2020-01-16] MEDS: HEPARIN 5,000 UNITS/ML, 1ML IV PRN ×2 (14:55→22:58)
[2020-01-16 15:05] VITALS: BP 117/62
[2020-01-16 17:16] LABS: MD YES; MEAN CORPUSCULAR HGB CONC 32.3 g/dL (32.4-35.8); MEAN CORPUSCULAR VOLUME 83.6 fL (80-100); MEAN PLATELET VOLUME 7.8 fL (7.4-10.4); PLATELET COUNT 153 x10^3/uL (130-400); RED BLOOD COUNT 4.19 x10^6/uL (3.82-5.3); RED CELL DISTRIBUTION WIDTH 20.1 % (9.6-15.2)
[2020-01-16 17:19] LABS: EOS#(MANUAL) 0.04 x10^3/uL (0.0-0.4); EOS% (MANUAL) 1 % (1-7); LYMPH#(MANUAL) 0.95 x10^3/uL (1-3.4); LYMPHS% (MANUAL) 22 % (22-44); MONOS#(MANUAL) 0.22 x10^3/uL (0.3-2.7); MONOS% (MANUAL) 5 % (2-9); SEGS% (MANUAL) 72 % (42-75)
[2020-01-16 17:21] LABS: <PLATELET ESTIMATE> ADEQUATE; <PLT MORPHOLOGY> NORMAL PLT MORPH; ANISOCYTOSIS 1+; OVALOCYTES 1+; POLYCHROMASIA 1+
[2020-01-16 19:07] VITALS: BP 123/88
[2020-01-17] MEDS: ONDANSETRON 2MG/ML, 2ML IVPush PRN ×3 (00:17→16:33)
[2020-01-17 00:48] VITALS: BP 119/74
[2020-01-17] MEDS: HEPARIN 25,000 UNITS/250ML PMX 250 ML IV PRN ×2 (02:07→16:32)
[2020-01-17] MEDS: HYDROmorphone 2 MG/ML, 1ML IVPush PRN ×6 (02:59→23:26)
[2020-01-17] MEDS: SUCRALFATE 1 GM/10 ML UDC PO SCH ×4 (04:56→23:26)
[2020-01-17 05:43] LABS: ANION GAP 8 mmol/L (5-15); CALCIUM 7.7 mg/dL (8.5-10.1); CHLORIDE 118 mmol/L (98-107); CREATININE 0.46 mg/dL (0.55-1.02)
[2020-01-17] MEDS: NS + 40MEQ KCL 1,000 ML IV SCH (06:34)
[2020-01-17 07:11] LABS: MEAN CORPUSCULAR HEMOGLOBIN 26.8 pg (27.0-34.8); MEAN CORPUSCULAR HGB CONC 32.1 g/dL (32.4-35.8); MEAN CORPUSCULAR VOLUME 83.6 fL (80-100); MEAN PLATELET VOLUME 7.9 fL (7.4-10.4); PLATELET COUNT 150 x10^3/uL (130-400); RED BLOOD COUNT 4.05 x10^6/uL (3.82-5.3)
[2020-01-17 07:14] LABS: MD YES
[2020-01-17 07:16] LABS: <PLATELET ESTIMATE> ADEQUATE; <PLT MORPHOLOGY> NORMAL PLT MORPH; ANISOCYTOSIS 1+; LYMPH#(MANUAL) 1.62 x10^3/uL (1-3.4); LYMPHS% (MANUAL) 36 % (22-44); MONOS#(MANUAL) 0.18 x10^3/uL (0.3-2.7); MONOS% (MANUAL) 4 % (2-9); OVALOCYTES 1+; POLYCHROMASIA 1+; SEGS% (MANUAL) 60 % (42-75)
[2020-01-17 08:50] VITALS: BP 96/61
[2020-01-17] MEDS: BISACODYL 10 MG SUPP PR SCH (09:00)
[2020-01-17] MEDS: SODIUM CHLORIDE 0.45% 1,000 ML IV SCH ×2 (10:05→23:26)
[2020-01-17] MEDS: PROCHLORPERAZINE 5 MG/ML, 2ML IVPush PRN ×2 (10:06→16:33)
[2020-01-17] MEDS: LACTOBACILLUS CHEW TABLET PO SCH ×3 (10:06→21:12)
[2020-01-17] MEDS: ERTAPENEM 1 GM in SODIUM CHLORIDE 0.9% 50 ML IVPB SCH (10:07)
[2020-01-17 13:49] LABS: OCCULT BLOOD POSITIVE (NEGATIVE)
[2020-01-17] MEDS: MAALOX/HYOSCYAMINE/LIDOCAINE 45 ML BTL PO PRN (14:57)
[2020-01-17 14:59] VITALS: BP 133/90
[2020-01-17] MEDS: PANTOPRAZOLE 20MG TABLET PO SCH (16:33)
[2020-01-17 20:56] VITALS: BP 109/72
[2020-01-17] MEDS: SENNA/DOCUSATE TABLET PO SCH (21:12)
[2020-01-17] MEDS: METOCLOPRAMIDE 5 MG/ML, 2ML IVPush SCH (21:12)
[2020-01-18 00:07] VITALS: BP 128/81
[2020-01-18] MEDS: HYDROmorphone 2 MG/ML, 1ML IVPush PRN ×5 (03:34→22:33)
[2020-01-18] MEDS: PANTOPRAZOLE 20MG TABLET PO SCH ×2 (05:54→16:08)
[2020-01-18] MEDS: SUCRALFATE 1 GM/10 ML UDC PO SCH ×3 (05:54→16:08)
[2020-01-18 06:18] LABS: ANION GAP 7 mmol/L (5-15); CALCIUM 7.6 mg/dL (8.5-10.1); CHLORIDE 112 mmol/L (98-107); CREATININE 0.55 mg/dL (0.55-1.02)
[2020-01-18] MEDS: BISACODYL 10 MG SUPP PR SCH (07:14)
[2020-01-18] MEDS: PROCHLORPERAZINE 5 MG/ML, 2ML IVPush PRN ×2 (08:22→16:08)
[2020-01-18 08:28] VITALS: BP 102/68
[2020-01-18] MEDS: METOCLOPRAMIDE 5 MG/ML, 2ML IVPush SCH ×2 (09:38→21:25)
[2020-01-18] MEDS: LACTOBACILLUS CHEW TABLET PO SCH ×3 (09:38→21:24)
[2020-01-18] MEDS: ERTAPENEM 1 GM in SODIUM CHLORIDE 0.9% 50 ML IVPB SCH (09:39)
[2020-01-18] MEDS: MAALOX/HYOSCYAMINE/LIDOCAINE 45 ML BTL PO PRN ×2 (09:40→16:08)
[2020-01-18] MEDS: HEPARIN 25,000 UNITS/250ML PMX 250 ML IV PRN (10:43)
[2020-01-18 14:01] VITALS: BP 113/67
[2020-01-18] MEDS: SODIUM CHLORIDE 0.45% 1,000 ML IV SCH (14:06)
[2020-01-18 18:20] VITALS: BP 107/73
[2020-01-18] MEDS: SENNA/DOCUSATE TABLET PO SCH (21:00)
[2020-01-18] MEDS: NICOTINE 21 MG/24 HR PATCH.TD24 TD SCH (22:33)
[2020-01-19 00:04] VITALS: BP 109/76
[2020-01-19] MEDS: HYDROmorphone 2 MG/ML, 1ML IVPush PRN (02:24)
[2020-01-19] MEDS: SODIUM CHLORIDE 0.45% 1,000 ML IV SCH ×2 (03:24→18:08)
[2020-01-19] MEDS: MAALOX/HYOSCYAMINE/LIDOCAINE 45 ML BTL PO PRN (04:10)
[2020-01-19] MEDS: HEPARIN 25,000 UNITS/250ML PMX 250 ML IV PRN (04:17)
[2020-01-19] MEDS: PANTOPRAZOLE 20MG TABLET PO SCH ×2 (06:14→18:08)
[2020-01-19] MEDS: HEPARIN 5,000 UNITS/ML, 1ML IV PRN (06:14)
[2020-01-19 08:00] VITALS: BP 123/85
[2020-01-19] MEDS: BISACODYL 10 MG SUPP PR SCH (09:00)
[2020-01-19] MEDS: METOCLOPRAMIDE 5 MG/ML, 2ML IVPush SCH ×2 (10:50→22:03)
[2020-01-19] MEDS: LACTOBACILLUS CHEW TABLET PO SCH ×3 (10:50→22:03)
[2020-01-19] MEDS: OXYcodone IR 5MG TABLET PO PRN ×3 (10:54→22:48)
[2020-01-19] MEDS: ERTAPENEM 1 GM in SODIUM CHLORIDE 0.9% 50 ML IVPB SCH (11:01)
[2020-01-19 13:40] VITALS: BP 111/88
[2020-01-19] MEDS: RIVAROXABAN 15 MG TABLET PO SCH (18:08)
[2020-01-19 20:46] VITALS: BP 101/62
[2020-01-19] MEDS: SENNA/DOCUSATE TABLET PO SCH (21:00)
[2020-01-19] MEDS: ONDANSETRON 2MG/ML, 2ML IVPush PRN (22:03)
[2020-01-19] MEDS: NICOTINE 21 MG/24 HR PATCH.TD24 TD SCH (22:09)
[2020-01-20 02:20] VITALS: BP 104/71
[2020-01-20] MEDS: PANTOPRAZOLE 20MG TABLET PO SCH (06:00)
[2020-01-20 07:25] VITALS: BP 109/73
[2020-01-20] MEDS: SODIUM CHLORIDE 0.45% 1,000 ML IV SCH (08:00)
[2020-01-20] MEDS ORDERED: RIVA15TA PO (08:34)
[2020-01-20] MEDS ORDERED: RIVA20TA PO (08:34)
[2020-01-20] MEDS ORDERED: PANT20TA3 PO (08:34)
[2020-01-20] MEDS ORDERED: METO5TAB2 PO (08:34)
[2020-01-20] MEDS: METOCLOPRAMIDE 5 MG/ML, 2ML IVPush SCH (09:40)
[2020-01-20] MEDS: ONDANSETRON 2MG/ML, 2ML IVPush PRN (09:40)
[2020-01-20] MEDS: ERTAPENEM 1 GM in SODIUM CHLORIDE 0.9% 50 ML IVPB SCH (09:40)
[2020-01-20] MEDS: RIVAROXABAN 15 MG TABLET PO SCH (09:40)
[2020-01-20] MEDS: LACTOBACILLUS CHEW TABLET PO SCH (09:40)
[2020-01-20] MEDS: OXYcodone IR 5MG TABLET PO PRN (09:41)
== END 2020-01-20 10:21 | disposition home or self-care (01) | DRG 243 ==
LOC: ED 14:41 → EDIP 16:59 → 3N 18:53
PROVIDERS: ADMIT Internal Medicine; ATTEND Hospitalist
PROC: 02HV33Z Insertion of Infusion Device into Superior Vena Cava, Percutaneous Approach (ICD-10-PCS; principal; 2020-01-15)
PROC: B5181ZA Fluoroscopy of Superior Vena Cava using Low Osmolar Contrast, Guidance (ICD-10-PCS; 2020-01-15)
PROC: B548ZZA Ultrasonography of Superior Vena Cava, Guidance (ICD-10-PCS; 2020-01-15)
PROC: 0D758ZZ Dilation of Esophagus, Via Natural or Artificial Opening Endoscopic (ICD-10-PCS; 2020-01-16)
DX: K22.2 Esophageal obstruction (principal); E43 Unspecified severe protein-calorie malnutrition; E87.0 Hyperosmolality and hypernatremia; I82.622 Acute embolism and thrombosis of deep veins of left upper extremity; N30.91 Cystitis, unspecified with hematuria; K31.84 Gastroparesis; K76.0 Fatty (change of) liver, not elsewhere classified; E66.9 Obesity, unspecified; Z68.32 Body mass index [BMI] 32.0-32.9, adult; E87.6 Hypokalemia; F11.23 Opioid dependence with withdrawal; F17.200 Nicotine dependence, unspecified, uncomplicated; G89.29 Other chronic pain; J44.9 Chronic obstructive pulmonary disease, unspecified; K43.6 Other and unspecified ventral hernia with obstruction, without gangrene; R09.02 Hypoxemia; K58.9 Irritable bowel syndrome, unspecified; B96.29 Other Escherichia coli [E. coli] as the cause of diseases classified elsewhere; K28.9 Gastrojejunal ulcer, unspecified as acute or chronic, without hemorrhage or perforation; Z16.12 Extended spectrum beta lactamase (ESBL) resistance; Z76.5 Malingerer [conscious simulation]; Z79.01 Long term (current) use of anticoagulants; Z87.11 Personal history of peptic ulcer disease; Z87.19 Personal history of other diseases of the digestive system; Z91.14 Patient's other noncompliance with medication regimen; Z91.19 Patient's noncompliance with other medical treatment and regimen; Z98.84 Bariatric surgery status; Z98.51 Tubal ligation status; Z90.49 Acquired absence of other specified parts of digestive tract; Z88.5 Allergy status to narcotic agent
CPT/HCPCS: 36415; 36573; 71045; 74018; 80048; 80053; 81001; 82272; 83690; 83735; 84100; 85025; 85520; 87040; 87077; 87086; 87184; 87186; 96365; 96375; G0378; J0696; J1170; J1335; J1644; J1650; J2250; J2405; J2704; J3010; C1725; C1751; C9113; J0330; J0780; J2765; J3480; J3490; J7030

== ENCOUNTER 2020-03-09 18:47 | Emergency (ER) | payer MEDICAID ==
[~2020-03-09] VITALS: Ht 167.6 cm; Wt 78.0 kg
[~2020-03-09 18:47] MED LIST changes: +FAMO20TA7 PO; +LUBI8CAP4 PO; +METO5TAB2 PO; +NICO-485 TD; +NICO-486 TD; +NICO-487 TD; +OXYC15TA3 PO; +PANT20TA3 PO; +RIVA15TA PO; +RIVA20TA PO; +SUCR1ORA5 PO
[2020-03-09 18:58] VITALS: BP 97/62
[2020-03-09] MEDS ORDERED: ONDANSETRON 2MG/ML, 2ML IVPush ONE (20:00)
[2020-03-09] MEDS ORDERED: SODIUM CHLORIDE FLUSH 10ML SYR IVF ONE (20:00)
[2020-03-09] MEDS ORDERED: HYDROmorphone 2 MG/ML, 1ML IVPush PRN (20:00)
[2020-03-09] MEDS ORDERED: HYDROmorphone 1 MG/ML, 1ML INJ ONE ×2 (20:03→20:45)
[2020-03-09] MEDS ORDERED: ONDANSETRON 2MG/ML, 2ML ONE (20:03)
[2020-03-09 20:24] LABS: ALANINE AMINOTRANSFERASE 24 U/L (12-78); ALBUMIN 2.3 g/dL (3.4-5.0); ANION GAP 6 mmol/L (5-15); CALCIUM 8.5 mg/dL (8.5-10.1); CHLORIDE 113 mmol/L (98-107); CREATININE 0.47 mg/dL (0.55-1.02)
[2020-03-09 20:26] LABS: ALKALINE PHOSPHATASE 62 U/L (45-117); TOTAL PROTEIN 6.5 g/dL (6.4-8.2)
[2020-03-09 20:36] LABS: BASOPHILS # (AUTO) 0.01 x10^3/uL (0-0.1); BASOPHILS % (AUTO) 0 % (0-1); EOSINOPHILS # (AUTO) 0.02 x10^3/uL (0-0.4); EOSINOPHILS % (AUTO) 0 % (1-7); LYMPHOCYTES # (AUTO) 0.94 x10^3/uL (1-3.4); LYMPHOCYTES % (AUTO) 18 % (22-44); MD SCAN; MEAN CORPUSCULAR HGB CONC 32.4 g/dL (32.4-35.8); MEAN CORPUSCULAR VOLUME 89.6 fL (80-100); MEAN PLATELET VOLUME 9.1 fL (7.4-10.4); MONOCYTES # (AUTO) 0.39 x10^3/uL (0.2-0.8); MONOCYTES % (AUTO) 7 % (2-9); NEUTROPHILS # (AUTO) 4.02 x10^3/uL (1.8-6.8); NEUTROPHILS % (AUTO) 75 % (42-75); PLATELET COUNT 137 x10^3/uL (130-400); RED BLOOD COUNT 4.37 x10^6/uL (3.82-5.3); RED CELL DISTRIBUTION WIDTH 20.3 % (9.6-15.2)
--- NOTE | 2020-03-09 21:30 | NUR ---
PT UP TO RESTROOM, WITH URINE CUP. VERBALIZED UNDERSTANDING OF INSTRUCTIONS FOR USE. GAIT STRONG AND INDEPENDENT.
[2020-03-09 21:50] LABS: MICROSCOPIC INDICATED
[2020-03-09] MEDS ORDERED: HALOPERIDOL 5 MG/ML IV ONE (22:00)
[2020-03-09] MEDS ORDERED: HALOPERIDOL 5 MG/ML ONE ×2 (22:16→22:24)
[2020-03-09] MEDS ORDERED: MAALOX/HYOSCYAMINE/LIDOCAINE 45 ML BTL ONE (22:25)
[2020-03-09] MEDS ORDERED: DICYCLOMINE 10 MG/ML, 2ML ONE (22:25)
[2020-03-09] MEDS ORDERED: MAALOX/HYOSCYAMINE/LIDOCAINE 45 ML BTL PO ONE (22:30)
[2020-03-09] MEDS ORDERED: DICYCLOMINE 10 MG/ML, 2ML IM ONE (22:30)
--- NOTE | 2020-03-09 22:45 | NUR ---
PT GIVEN MORE EMESIS BAGS. PT REFUSES TO USE THEM, SPITTING ON FLOOR INSTEAD. IV NO LONGER PATENT, PULLED FOR INABILITY TO USE. HALDOL GIVEN IM INSTEAD, PER ERP VERBAL ORDERS. PT DENIES ANY CURRENT NEEDS OR CONCERNS. CALL LIGHT IN REACH.
--- NOTE | 2020-03-09 23:20 | NUR ---
PT PROVIDED WITH WATER FOR PO CHALLENGE, PT SLEEPING IN ROOM UPON ENTRANCE. UPDATED ON PLAN OF CARE. DENIES ANY NEEDS OR CONCERNS AT THIS TIME. CALL LIGHT IN REACH.
== END 2020-03-09 23:42 | disposition home or self-care (01) ==
LOC: ED 23:00
DX: R11.2 Nausea with vomiting, unspecified (principal); R10.33 Periumbilical pain; F11.20 Opioid dependence, uncomplicated; K21.9 Gastro-esophageal reflux disease without esophagitis; J44.9 Chronic obstructive pulmonary disease, unspecified; G89.29 Other chronic pain
CPT/HCPCS: 36415; 74021; 80053; 81001; 83690; 85025; 87086; 96372; 96374; 96375; 99284; J0500; J1170; J1630; J2405

== ENCOUNTER 2020-03-31 22:34 | Emergency (ER) | payer MEDICAID ==
[~2020-03-31] VITALS: Ht 170.2 cm; Wt 77.9 kg
--- NOTE | 2020-03-31 22:41 | NUR ---
Patient BIB [facility] c/o epigastric pain and N/V. 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 EMS admin 4mg Zofran and 100mcg Fentanyl. Patient states the pain meds did not help. Patient states her gastric bypass was approx 5 years ago and there were so many problems, it was redone approx 3 weeks ago. Patient is in NAD. Respirations even and unlabored.
[2020-03-31] MEDS ORDERED: HYDROmorphone 1 MG/ML, 1ML INJ IV ONE (23:00)
[2020-03-31] MEDS ORDERED: ONDANSETRON 2MG/ML, 2ML IVPush ONE (23:00)
[2020-03-31] MEDS ORDERED: HYDROmorphone 1 MG/ML, 1ML INJ ONE (23:08)
[2020-03-31] MEDS ORDERED: ONDANSETRON 2MG/ML, 2ML ONE (23:08)
[2020-03-31] MEDS ORDERED: MAALOX/HYOSCYAMINE/LIDOCAINE 45 ML BTL ONE (23:13)
[2020-03-31] MEDS ORDERED: MAALOX/HYOSCYAMINE/LIDOCAINE 45 ML BTL PO ONE (23:30)
[2020-03-31 23:47] LABS: BASOPHILS # (AUTO) 0.02 x10^3/uL (0-0.1); BASOPHILS % (AUTO) 0 % (0-1); EOSINOPHILS # (AUTO) 0.02 x10^3/uL (0-0.4); EOSINOPHILS % (AUTO) 0 % (1-7); LYMPHOCYTES # (AUTO) 0.65 x10^3/uL (1-3.4); LYMPHOCYTES % (AUTO) 11 % (22-44); MD NO; MEAN CORPUSCULAR HGB CONC 32.2 g/dL (32.4-35.8); MEAN CORPUSCULAR VOLUME 89.9 fL (80-100); MONOCYTES # (AUTO) 0.46 x10^3/uL (0.2-0.8); MONOCYTES % (AUTO) 8 % (2-9); NEUTROPHILS % (AUTO) 81 % (42-75); PLATELET COUNT 155 x10^3/uL (130-400); RED BLOOD COUNT 3.99 x10^6/uL (3.82-5.3); RED CELL DISTRIBUTION WIDTH 16.4 % (9.6-15.2)
[2020-03-31 23:56] LABS: ALANINE AMINOTRANSFERASE 25 U/L (12-78); ALBUMIN 1.8 g/dL (3.4-5.0); ANION GAP 6 mmol/L (5-15); CALCIUM 7.9 mg/dL (8.5-10.1); CHLORIDE 115 mmol/L (98-107)
[2020-04-01 00:01] LABS: ALKALINE PHOSPHATASE 73 U/L (45-117); BILIRUBIN,TOTAL 1.5 mg/dL (0.2-1.0); CREATININE 0.49 mg/dL (0.55-1.02); TOTAL PROTEIN 5.8 g/dL (6.4-8.2); TROPONIN I < 0.015 ng/mL (0.000-0.045)
[2020-04-01] MEDS ORDERED: OMNIPAQUE 350 MG/ML, 100ML BOTTLE ONE (01:35)
[2020-04-01 03:01] VITALS: BP 100/69
--- NOTE | 2020-04-01 03:28 | NUR ---
Discharge instructions given. All questions and concerns addressed. Emphasized to patient that she needs to follow up. Patient ambulatory with a steady gait. Belongings with patient.
== END 2020-04-01 03:30 | disposition home or self-care (01) ==
LOC: ED 23:23
DX: R10.13 Epigastric pain (principal); R11.0 Nausea; J15.9 Unspecified bacterial pneumonia; F11.10 Opioid abuse, uncomplicated; I49.3 Ventricular premature depolarization; K21.9 Gastro-esophageal reflux disease without esophagitis; J44.9 Chronic obstructive pulmonary disease, unspecified; F17.210 Nicotine dependence, cigarettes, uncomplicated; Z72.9 Problem related to lifestyle, unspecified
CPT/HCPCS: 36415; 74177; 80053; 83690; 84484; 85025; 93005; 96374; 96375; 99285; 99406; J1170; J2405; Q9967; 99284

== ENCOUNTER 2020-04-11 19:11 | Inpatient (IN) | payer MEDICAID ==
[~2020-04-11] VITALS: Ht 170.2 cm; Wt 74.9 kg
[2020-04-11] MEDS ORDERED: SODIUM CHLORIDE 0.9% 1,000ML IVBOLUS ONE (19:30)
[2020-04-11] MEDS ORDERED: HYDROmorphone 2 MG/ML, 1ML IVPush PRN (19:30)
[2020-04-11] MEDS ORDERED: MAALOX/HYOSCYAMINE/LIDOCAINE 45 ML BTL PO ONE (19:30)
[2020-04-11] MEDS ORDERED: ONDANSETRON 2MG/ML, 2ML IVPush ONE (19:30)
[2020-04-11] MEDS ORDERED: MAALOX/HYOSCYAMINE/LIDOCAINE 45 ML BTL ONE (19:36)
[2020-04-11 20:15] LABS: BASOPHILS # (AUTO) 0.04 x10^3/uL (0-0.1); BASOPHILS % (AUTO) 1 % (0-1); EOSINOPHILS # (AUTO) 0.04 x10^3/uL (0-0.4); EOSINOPHILS % (AUTO) 1 % (1-7); LYMPHOCYTES # (AUTO) 1.26 x10^3/uL (1-3.4); LYMPHOCYTES % (AUTO) 23 % (22-44); MD NO; MEAN CORPUSCULAR HEMOGLOBIN 29.4 pg (27.0-34.8); MEAN CORPUSCULAR HGB CONC 32.7 g/dL (32.4-35.8); MEAN CORPUSCULAR VOLUME 89.8 fL (80-100); MEAN PLATELET VOLUME 7.8 fL (7.4-10.4); MONOCYTES # (AUTO) 0.39 x10^3/uL (0.2-0.8); MONOCYTES % (AUTO) 7 % (2-9); NEUTROPHILS # (AUTO) 3.73 x10^3/uL (1.8-6.8); NEUTROPHILS % (AUTO) 68 % (42-75); PLATELET COUNT 374 x10^3/uL (130-400); RED BLOOD COUNT 3.61 x10^6/uL (3.82-5.3); RED CELL DISTRIBUTION WIDTH 16.1 % (9.6-15.2)
[2020-04-11 20:25] LABS: ALANINE AMINOTRANSFERASE 17 U/L (12-78); ALBUMIN 1.7 g/dL (3.4-5.0); ANION GAP 7 mmol/L (5-15); CALCIUM 8.2 mg/dL (8.5-10.1); CHLORIDE 113 mmol/L (98-107); CREATININE 0.42 mg/dL (0.55-1.02)
[2020-04-11 20:27] LABS: ALKALINE PHOSPHATASE 82 U/L (45-117); BILIRUBIN,TOTAL 1.4 mg/dL (0.2-1.0); TOTAL PROTEIN 5.9 g/dL (6.4-8.2)
[2020-04-11] MEDS ORDERED: LORazepam 2 MG/ML, 1ML IVPush PRN (21:30)
[2020-04-11] MEDS ORDERED: DOCUSATE 100 MG CAPSULE PO PRN (21:30)
[2020-04-11] MEDS ORDERED: D5%-0.45NACL+KCL 40MEQ 1,000 ML IV SCH (21:30)
[2020-04-11] MEDS ORDERED: ACETAMINOPHEN 325 MG TABLET PO PRN (21:30)
[2020-04-11] MEDS ORDERED: BISACODYL 10 MG SUPP PR PRN (21:30)
[2020-04-11] MEDS ORDERED: FAMOTIDINE 20 MG/2 ML IVPush SCH (21:30)
[2020-04-11] MEDS ORDERED: D5%-0.45% NACL 1,000 ML IV SCH (21:30)
[2020-04-11] MEDS ORDERED: hydrALAzine 20 MG/ML, 1ML IVPush PRN (21:30)
[2020-04-11] MEDS ORDERED: POLYETHYLENE GLYCOL 17 GM PACKET PO PRN (21:30)
[2020-04-11] MEDS ORDERED: HYDROmorphone 1 MG/ML, 1ML INJ ONE (21:47)
[2020-04-11] MEDS ORDERED: FAMOTIDINE 20 MG/2 ML ONE (21:47)
[2020-04-11] MEDS ORDERED: ONDANSETRON 2MG/ML, 2ML ONE (21:47)
[2020-04-11] MEDS ORDERED: ELECTROLYTE REPLACEMENT PROTOCOL CRITICAL CARE ONLY MC PRN (22:30)
[2020-04-11] MEDS: PANTOPRAZOLE 40 MG IV IVPush SCH (23:21)
[2020-04-11] MEDS: D5%-0.45NACL+KCL 40MEQ 1,000 ML IV SCH (23:30)
[2020-04-12] MEDS: HYDROmorphone 2 MG/ML, 1ML IVPush PRN ×3 (02:04→12:51)
[2020-04-12 05:31] LABS: MEAN CORPUSCULAR HEMOGLOBIN 29.7 pg (27.0-34.8); MEAN PLATELET VOLUME 9.1 fL (7.4-10.4); PLATELET COUNT 186 x10^3/uL (130-400); RED BLOOD COUNT 3.16 x10^6/uL (3.82-5.3); RED CELL DISTRIBUTION WIDTH 16.8 % (9.6-15.2)
[2020-04-12 05:37] LABS: CHLORIDE 112 mmol/L (98-107)
[2020-04-12 05:48] LABS: ANION GAP 8 mmol/L (5-15); CALCIUM 7.4 mg/dL (8.5-10.1); CREATININE 0.33 mg/dL (0.55-1.02)
[2020-04-12 05:49] LABS: BASOPHILS # (AUTO) 0.06 x10^3/uL (0-0.1); BASOPHILS % (AUTO) 1 % (0-1); EOSINOPHILS # (AUTO) 0.06 x10^3/uL (0-0.4); EOSINOPHILS % (AUTO) 2 % (1-7); LYMPHOCYTES # (AUTO) 1.48 x10^3/uL (1-3.4); LYMPHOCYTES % (AUTO) 37 % (22-44); MD SCAN; MONOCYTES % (AUTO) 10 % (2-9); NEUTROPHILS # (AUTO) 2.05 x10^3/uL (1.8-6.8); NEUTROPHILS % (AUTO) 51 % (42-75)
[2020-04-12 07:07] VITALS: BP 109/77
[2020-04-12] MEDS ORDERED: MAGNESIUM SULFATE PMX 2GM/50ML 50 ML IV ONE (11:00)
[2020-04-12] MEDS: PANTOPRAZOLE 40 MG IV IVPush SCH ×2 (11:37→22:30)
[2020-04-12] MEDS: SUCRALFATE 1 GM/10 ML UDC PO SCH ×3 (12:50→21:00)
[2020-04-12] MEDS ORDERED: SENNA/DOCUSATE TABLET PO PRN (14:00)
[2020-04-12] MEDS ORDERED: OXYcodone IR 5MG TABLET PO PRN (14:00)
[2020-04-12 14:03] LABS: CLOSTRIDIUM DIFFICILE ANTIGEN NEGATIVE; CLOSTRIDIUM DIFFICILE TOXIN NEGATIVE (Negative)
[2020-04-12 15:59] VITALS: BP 105/69
[2020-04-12] MEDS ORDERED: HYDROmorphone 2 MG/ML, 1ML ONE (16:58)
[2020-04-12] MEDS: HYDROmorphone 1 MG/ML, 1ML INJ IV PRN ×2 (17:07→23:47)
[2020-04-12 20:20] VITALS: BP 111/75
[2020-04-12] MEDS: PROMETHAZINE 25 MG/ML, 1ML IM PRN (21:59)
[2020-04-12] MEDS: D5%-0.45NACL+KCL 40MEQ 1,000 ML IV SCH (23:38)
[2020-04-13 01:36] VITALS: BP 100/66
[2020-04-13] MEDS: HYDROmorphone 1 MG/ML, 1ML INJ IV PRN ×5 (04:02→22:08)
[2020-04-13] MEDS: ONDANSETRON ODT 4 MG PO PRN ×2 (04:12→11:26)
[2020-04-13 05:43] LABS: CHLORIDE 113 mmol/L (98-107)
[2020-04-13 05:51] LABS: ALANINE AMINOTRANSFERASE 15 U/L (12-78); ALBUMIN 1.4 g/dL (3.4-5.0); ALKALINE PHOSPHATASE 63 U/L (45-117); ANION GAP 8 mmol/L (5-15); CREATININE 0.34 mg/dL (0.55-1.02); PREALBUMIN 7.1 mg/dL (20.0-40.0); TOTAL PROTEIN 4.8 g/dL (6.4-8.2)
[2020-04-13 07:04] VITALS: BP 92/62
[2020-04-13] MEDS: SUCRALFATE 1 GM/10 ML UDC PO SCH ×4 (07:28→22:09)
[2020-04-13] MEDS: PROMETHAZINE 25 MG/ML, 1ML IM PRN ×2 (07:29→16:10)
[2020-04-13 07:49] VITALS: BP 130/83
[2020-04-13 08:10] LABS: MEAN CORPUSCULAR HEMOGLOBIN 28.8 pg (27.0-34.8); MEAN CORPUSCULAR HGB CONC 31.5 g/dL (32.4-35.8); MEAN CORPUSCULAR VOLUME 91.2 fL (80-100); MEAN PLATELET VOLUME 7.6 fL (7.4-10.4); PLATELET COUNT 293 x10^3/uL (130-400); RED BLOOD COUNT 3.22 x10^6/uL (3.82-5.3); RED CELL DISTRIBUTION WIDTH 16.3 % (9.6-15.2)
[2020-04-13 08:12] LABS: BASOPHILS # (AUTO) 0.02 x10^3/uL (0-0.1); BASOPHILS % (AUTO) 1 % (0-1); EOSINOPHILS # (AUTO) 0.04 x10^3/uL (0-0.4); EOSINOPHILS % (AUTO) 1 % (1-7); LYMPHOCYTES % (AUTO) 43 % (22-44); MD MORPH REVIEW ONLY; MONOCYTES # (AUTO) 0.31 x10^3/uL (0.2-0.8); MONOCYTES % (AUTO) 8 % (2-9); NEUTROPHILS # (AUTO) 1.76 x10^3/uL (1.8-6.8); NEUTROPHILS % (AUTO) 47 % (42-75)
[2020-04-13 08:14] LABS: ANISOCYTOSIS 1+
[2020-04-13 08:15] LABS: <PLT MORPHOLOGY> NORMAL PLT MORPH; HYPOCHROMIA 1+
[2020-04-13 08:19] LABS: <PLATELET ESTIMATE> ADEQUATE
[2020-04-13] MEDS ORDERED: HYDROmorphone 2 MG/ML, 1ML ONE ×4 (08:37→22:02)
[2020-04-13] MEDS: PANTOPRAZOLE 40 MG IV IVPush SCH ×2 (08:43→22:09)
[2020-04-13] MEDS: D5%-0.45NACL+KCL 40MEQ 1,000 ML IV SCH ×2 (09:46→22:08)
[2020-04-13 12:20] VITALS: BP 92/62
[2020-04-13] MEDS: K-PHOS NEUTRAL 250MG TAB PO SCH ×2 (13:33→22:09)
[2020-04-13 18:53] VITALS: BP 106/69
[2020-04-14 01:35] VITALS: BP 119/83
[2020-04-14] MEDS ORDERED: HYDROmorphone 2 MG/ML, 1ML ONE ×5 (02:15→20:11)
[2020-04-14] MEDS: HYDROmorphone 1 MG/ML, 1ML INJ IV PRN ×5 (02:19→20:16)
[2020-04-14] MEDS: ONDANSETRON ODT 4 MG PO PRN ×2 (02:25→20:27)
[2020-04-14 06:27] LABS: ALANINE AMINOTRANSFERASE 16 U/L (12-78); ALBUMIN 1.4 g/dL (3.4-5.0); ANION GAP 8 mmol/L (5-15); CALCIUM 6.9 mg/dL (8.5-10.1); CHLORIDE 113 mmol/L (98-107)
[2020-04-14 06:32] LABS: BASOPHILS # (AUTO) 0.02 x10^3/uL (0-0.1); BASOPHILS % (AUTO) 0 % (0-1); EOSINOPHILS # (AUTO) 0.03 x10^3/uL (0-0.4); EOSINOPHILS % (AUTO) 1 % (1-7); LYMPHOCYTES # (AUTO) 1.48 x10^3/uL (1-3.4); LYMPHOCYTES % (AUTO) 33 % (22-44); MD NO; MEAN CORPUSCULAR HEMOGLOBIN 29.9 pg (27.0-34.8); MEAN CORPUSCULAR HGB CONC 32.9 g/dL (32.4-35.8); MEAN CORPUSCULAR VOLUME 90.8 fL (80-100); MEAN PLATELET VOLUME 7.5 fL (7.4-10.4); MONOCYTES # (AUTO) 0.34 x10^3/uL (0.2-0.8); MONOCYTES % (AUTO) 8 % (2-9); NEUTROPHILS # (AUTO) 2.58 x10^3/uL (1.8-6.8); NEUTROPHILS % (AUTO) 58 % (42-75); PLATELET COUNT 296 x10^3/uL (130-400); RED BLOOD COUNT 3.06 x10^6/uL (3.82-5.3); RED CELL DISTRIBUTION WIDTH 16.6 % (9.6-15.2)
[2020-04-14 06:52] LABS: % IRON SATURATION 100 % (20-55); ALKALINE PHOSPHATASE 63 U/L (45-117); BILIRUBIN,TOTAL 0.9 mg/dL (0.2-1.0); CREATININE 0.43 mg/dL (0.55-1.02); IRON LEVEL 61 mcg/dL (50-170); TOTAL IRON BINDING CAPACITY 61 mcg/dL (250-450)
[2020-04-14] MEDS: SUCRALFATE 1 GM/10 ML UDC PO SCH ×4 (07:00→20:16)
[2020-04-14 07:10] VITALS: BP 93/61
[2020-04-14] MEDS: K-PHOS NEUTRAL 250MG TAB PO SCH ×4 (09:00→20:23)
[2020-04-14] MEDS ORDERED: PROCHLORPERAZINE 5 MG/ML, 2ML IM PRN (09:30)
[2020-04-14] MEDS: PANTOPRAZOLE 40 MG IV IVPush SCH (10:46)
[2020-04-14] MEDS: D5%-0.45NACL+KCL 40MEQ 1,000 ML IV SCH (13:22)
[2020-04-14 14:01] VITALS: BP 92/61
[2020-04-14 20:04] VITALS: BP 120/71
[2020-04-15] MEDS ORDERED: HYDROmorphone 2 MG/ML, 1ML ONE (00:41)
[2020-04-15] MEDS: PANTOPRAZOLE 40 MG IV IVPush SCH ×3 (00:46→23:33)
[2020-04-15] MEDS: ONDANSETRON 2MG/ML, 2ML IVPush PRN ×3 (00:46→23:33)
[2020-04-15] MEDS: HYDROmorphone 1 MG/ML, 1ML INJ IV PRN (00:46)
[2020-04-15] MEDS: D5%-0.45NACL+KCL 40MEQ 1,000 ML IV SCH ×2 (00:48→17:44)
[2020-04-15 01:01] VITALS: BP 117/75
[2020-04-15] MEDS: HYDROmorphone 2 MG/ML, 1ML IV PRN ×5 (05:05→21:16)
[2020-04-15 05:26] LABS: MEAN CORPUSCULAR HEMOGLOBIN 29.4 pg (27.0-34.8); MEAN CORPUSCULAR VOLUME 91.7 fL (80-100); MEAN PLATELET VOLUME 7.7 fL (7.4-10.4); PLATELET COUNT 274 x10^3/uL (130-400)
[2020-04-15 05:34] LABS: ALBUMIN 1.5 g/dL (3.4-5.0); ANION GAP 8 mmol/L (5-15); CALCIUM 7.4 mg/dL (8.5-10.1); CHLORIDE 110 mmol/L (98-107)
[2020-04-15 05:38] LABS: ALANINE AMINOTRANSFERASE 20 U/L (12-78); ALKALINE PHOSPHATASE 70 U/L (45-117); CREATININE 0.38 mg/dL (0.55-1.02); TOTAL PROTEIN 5.5 g/dL (6.4-8.2)
[2020-04-15 06:03] LABS: BASOPHILS # (AUTO) 0.02 x10^3/uL (0-0.1); BASOPHILS % (AUTO) 0 % (0-1); EOSINOPHILS # (AUTO) 0.03 x10^3/uL (0-0.4); EOSINOPHILS % (AUTO) 1 % (1-7); LYMPHOCYTES # (AUTO) 1.89 x10^3/uL (1-3.4); LYMPHOCYTES % (AUTO) 46 % (22-44); MD SCAN; MONOCYTES % (AUTO) 7 % (2-9); NEUTROPHILS # (AUTO) 1.92 x10^3/uL (1.8-6.8); NEUTROPHILS % (AUTO) 46 % (42-75)
[2020-04-15 07:11] VITALS: BP 95/64
[2020-04-15] MEDS: SUCRALFATE 1 GM/10 ML UDC PO SCH ×4 (08:46→21:16)
[2020-04-15] MEDS: K-PHOS NEUTRAL 250MG TAB PO SCH ×2 (08:50→21:00)
[2020-04-15 13:28] VITALS: BP 109/78
[2020-04-15] MEDS: ONDANSETRON ODT 4 MG PO PRN (19:31)
[2020-04-15 19:51] VITALS: BP 114/80
[2020-04-16] MEDS: HYDROmorphone 2 MG/ML, 1ML IV PRN ×5 (01:27→23:23)
[2020-04-16 01:56] VITALS: BP 101/66
[2020-04-16] MEDS: D5%-0.45NACL+KCL 40MEQ 1,000 ML IV SCH ×2 (05:08→20:57)
[2020-04-16] MEDS: ONDANSETRON 2MG/ML, 2ML IVPush PRN (05:47)
[2020-04-16 07:08] LABS: ALBUMIN 1.7 g/dL (3.4-5.0); ANION GAP 8 mmol/L (5-15); CALCIUM 8.1 mg/dL (8.5-10.1); CHLORIDE 110 mmol/L (98-107)
[2020-04-16 07:11] LABS: ALANINE AMINOTRANSFERASE 19 U/L (12-78); ALKALINE PHOSPHATASE 75 U/L (45-117); BILIRUBIN,TOTAL 1.1 mg/dL (0.2-1.0); CREATININE 0.49 mg/dL (0.55-1.02); TOTAL PROTEIN 5.6 g/dL (6.4-8.2)
[2020-04-16 07:38] LABS: MEAN CORPUSCULAR HEMOGLOBIN 29.8 pg (27.0-34.8); MEAN CORPUSCULAR HGB CONC 32.7 g/dL (32.4-35.8); MEAN PLATELET VOLUME 7.9 fL (7.4-10.4); PLATELET COUNT 255 x10^3/uL (130-400); RED BLOOD COUNT 3.48 x10^6/uL (3.82-5.3)
[2020-04-16 07:57] LABS: BASOPHILS # (AUTO) 0.03 x10^3/uL (0-0.1); BASOPHILS % (AUTO) 1 % (0-1); EOSINOPHILS # (AUTO) 0.05 x10^3/uL (0-0.4); EOSINOPHILS % (AUTO) 1 % (1-7); LYMPHOCYTES # (AUTO) 1.65 x10^3/uL (1-3.4); LYMPHOCYTES % (AUTO) 38 % (22-44); MD SCAN; MONOCYTES # (AUTO) 0.42 x10^3/uL (0.2-0.8); MONOCYTES % (AUTO) 10 % (2-9); NEUTROPHILS # (AUTO) 2.16 x10^3/uL (1.8-6.8); NEUTROPHILS % (AUTO) 50 % (42-75); RED CELL DISTRIBUTION WIDTH 16.6 % (9.6-15.2)
[2020-04-16] MEDS: K-PHOS NEUTRAL 250MG TAB PO SCH ×2 (08:52→23:22)
[2020-04-16] MEDS: SUCRALFATE 1 GM/10 ML UDC PO SCH ×4 (08:52→23:22)
[2020-04-16 08:57] VITALS: BP 108/72
[2020-04-16] MEDS: PANTOPRAZOLE 40 MG IV IVPush SCH ×2 (12:03→23:23)
[2020-04-16] MEDS ORDERED: MAGNESIUM SULFATE PMX 2GM/50ML 50 ML IV ONE (12:30)
[2020-04-16 15:59] VITALS: BP 98/63
[2020-04-16] MEDS: METOCLOPRAMIDE 5 MG/ML, 2ML IVPush SCH ×2 (17:43→23:23)
[2020-04-16 18:59] VITALS: BP 99/66
[2020-04-17 00:33] VITALS: BP 118/68
[2020-04-17] MEDS: HYDROmorphone 2 MG/ML, 1ML IV PRN ×2 (03:32→07:31)
[2020-04-17] MEDS: METOCLOPRAMIDE 5 MG/ML, 2ML IVPush SCH ×4 (05:32→21:38)
[2020-04-17] MEDS: D5%-0.45NACL+KCL 40MEQ 1,000 ML IV SCH ×2 (05:32→21:37)
[2020-04-17 06:46] LABS: BASOPHILS # (AUTO) 0.04 x10^3/uL (0-0.1); BASOPHILS % (AUTO) 1 % (0-1); EOSINOPHILS # (AUTO) 0.02 x10^3/uL (0-0.4); EOSINOPHILS % (AUTO) 0 % (1-7); LYMPHOCYTES # (AUTO) 1.87 x10^3/uL (1-3.4); LYMPHOCYTES % (AUTO) 29 % (22-44); MD NO; MEAN CORPUSCULAR HGB CONC 32.6 g/dL (32.4-35.8); MEAN CORPUSCULAR VOLUME 91.9 fL (80-100); MEAN PLATELET VOLUME 8.2 fL (7.4-10.4); MONOCYTES % (AUTO) 11 % (2-9); NEUTROPHILS # (AUTO) 3.77 x10^3/uL (1.8-6.8); NEUTROPHILS % (AUTO) 59 % (42-75); PLATELET COUNT 209 x10^3/uL (130-400); RED BLOOD COUNT 3.42 x10^6/uL (3.82-5.3); RED CELL DISTRIBUTION WIDTH 17.5 % (9.6-15.2)
[2020-04-17 06:47] VITALS: BP 102/73
[2020-04-17 06:49] LABS: ALANINE AMINOTRANSFERASE 21 U/L (12-78); ALBUMIN 1.5 g/dL (3.4-5.0); ANION GAP 10 mmol/L (5-15); CALCIUM 7.3 mg/dL (8.5-10.1); CHLORIDE 109 mmol/L (98-107); CREATININE 0.46 mg/dL (0.55-1.02)
[2020-04-17 06:52] LABS: ALKALINE PHOSPHATASE 74 U/L (45-117); TOTAL PROTEIN 5.6 g/dL (6.4-8.2)
[2020-04-17] MEDS: K-PHOS NEUTRAL 250MG TAB PO SCH ×2 (07:30→21:38)
[2020-04-17] MEDS: SUCRALFATE 1 GM/10 ML UDC PO SCH ×4 (07:30→21:37)
[2020-04-17] MEDS ORDERED: OXYcodone ORAL.CONC 20 MG/ML NG PRN (10:00)
[2020-04-17] MEDS: PANTOPRAZOLE 40 MG IV IVPush SCH ×2 (11:38→21:38)
[2020-04-17 13:56] VITALS: BP 137/76
[2020-04-17 20:24] VITALS: BP 103/72
[2020-04-18 00:23] VITALS: BP 96/61
[2020-04-18] MEDS: METOCLOPRAMIDE 5 MG/ML, 2ML IVPush SCH ×4 (04:00→22:06)
[2020-04-18 05:09] VITALS: BP 105/70
[2020-04-18] MEDS: D5%-0.45NACL+KCL 40MEQ 1,000 ML IV SCH ×2 (06:00→17:31)
[2020-04-18 06:56] VITALS: BP 100/64
[2020-04-18] MEDS: K-PHOS NEUTRAL 250MG TAB PO SCH ×2 (07:20→22:05)
[2020-04-18] MEDS: SUCRALFATE 1 GM/10 ML UDC PO SCH ×4 (07:20→22:06)
[2020-04-18 08:00] LABS: ALBUMIN 1.6 g/dL (3.4-5.0); ANION GAP 7 mmol/L (5-15); CALCIUM 7.6 mg/dL (8.5-10.1); CHLORIDE 107 mmol/L (98-107)
[2020-04-18 08:04] LABS: ALANINE AMINOTRANSFERASE 21 U/L (12-78); ALKALINE PHOSPHATASE 73 U/L (45-117); BILIRUBIN,TOTAL 1.5 mg/dL (0.2-1.0); CREATININE 0.38 mg/dL (0.55-1.02); TOTAL PROTEIN 5.4 g/dL (6.4-8.2)
[2020-04-18] MEDS: PANTOPRAZOLE 40 MG IV IVPush SCH ×2 (10:09→22:06)
[2020-04-18 12:39] LABS: MEAN CORPUSCULAR HEMOGLOBIN 30.1 pg (27.0-34.8); MEAN CORPUSCULAR HGB CONC 33.1 g/dL (32.4-35.8); MEAN CORPUSCULAR VOLUME 90.7 fL (80-100); MEAN PLATELET VOLUME 7.4 fL (7.4-10.4); PLATELET COUNT 251 x10^3/uL (130-400); RED BLOOD COUNT 3.04 x10^6/uL (3.82-5.3); RED CELL DISTRIBUTION WIDTH 17.7 % (9.6-15.2)
[2020-04-18 13:10] LABS: MD YES
[2020-04-18 13:13] LABS: LYMPH#(MANUAL) 0.68 x10^3/uL (1-3.4); LYMPHS% (MANUAL) 17 % (22-44); MONOS#(MANUAL) 0.28 x10^3/uL (0.3-2.7); MONOS% (MANUAL) 7 % (2-9); SEG#(MANUAL) 3.04 x10^3/uL (1.8-6.8); SEGS% (MANUAL) 76 % (42-75)
[2020-04-18 13:14] LABS: ANISOCYTOSIS 1+
[2020-04-18 13:15] LABS: <PLATELET ESTIMATE> ADEQUATE; <PLT MORPHOLOGY> NORMAL PLT MORPH; HYPOCHROMIA 1+
[2020-04-18] MEDS ORDERED: OXYcodone 5 MG/5 ML ORAL.SOL UDC ONE (16:00)
[2020-04-18] MEDS: OXYcodone 5 MG/5 ML ORAL.SOL UDC NG PRN ×2 (16:11→22:06)
[2020-04-18] MEDS ORDERED: MAGNESIUM SULFATE PMX 2GM/50ML 50 ML IV ONE (17:00)
[2020-04-18 23:13] VITALS: BP 99/67
[2020-04-19 02:42] VITALS: BP 106/70
[2020-04-19] MEDS: OXYcodone 5 MG/5 ML ORAL.SOL UDC NG PRN ×2 (03:47→05:03)
[2020-04-19] MEDS: METOCLOPRAMIDE 5 MG/ML, 2ML IVPush SCH ×4 (03:47→21:27)
[2020-04-19 05:36] LABS: ANION GAP 8 mmol/L (5-15); CALCIUM 7.9 mg/dL (8.5-10.1); CHLORIDE 110 mmol/L (98-107); CREATININE 0.51 mg/dL (0.55-1.02)
[2020-04-19 05:45] LABS: MEAN CORPUSCULAR HGB CONC 32.9 g/dL (32.4-35.8); MEAN CORPUSCULAR VOLUME 91.2 fL (80-100); MEAN PLATELET VOLUME 7.9 fL (7.4-10.4); PLATELET COUNT 234 x10^3/uL (130-400); RED BLOOD COUNT 3.35 x10^6/uL (3.82-5.3); RED CELL DISTRIBUTION WIDTH 17.7 % (9.6-15.2)
[2020-04-19 06:17] LABS: BASOPHILS # (AUTO) 0.02 x10^3/uL (0-0.1); BASOPHILS % (AUTO) 0 % (0-1); EOSINOPHILS # (AUTO) 0.02 x10^3/uL (0-0.4); EOSINOPHILS % (AUTO) 0 % (1-7); LYMPHOCYTES # (AUTO) 1.45 x10^3/uL (1-3.4); LYMPHOCYTES % (AUTO) 31 % (22-44); MD SCAN; MONOCYTES # (AUTO) 0.51 x10^3/uL (0.2-0.8); MONOCYTES % (AUTO) 11 % (2-9); NEUTROPHILS % (AUTO) 58 % (42-75)
[2020-04-19 07:22] VITALS: BP 106/70
[2020-04-19] MEDS: D5%-0.45NACL+KCL 40MEQ 1,000 ML IV SCH (07:53)
[2020-04-19] MEDS: K-PHOS NEUTRAL 250MG TAB PO SCH ×3 (07:53→21:27)
[2020-04-19] MEDS: SUCRALFATE 1 GM/10 ML UDC PO SCH ×4 (07:54→21:27)
[2020-04-19] MEDS ORDERED: OXYcodone IR 5MG TABLET ONE (11:23)
[2020-04-19] MEDS: OXYcodone IR 5MG TABLET PO PRN ×2 (11:24→17:51)
[2020-04-19] MEDS: PANTOPRAZOLE 40 MG IV IVPush SCH ×2 (11:25→21:27)
[2020-04-19 13:27] VITALS: BP 102/66
[2020-04-19] MEDS: NYSTATIN TOPICAL POWDER 15GM TP SCH ×3 (15:03→21:27)
[2020-04-19 19:30] VITALS: BP 100/66
[2020-04-20 00:18] VITALS: BP 102/62
[2020-04-20] MEDS: OXYcodone IR 5MG TABLET PO PRN ×4 (00:35→20:58)
[2020-04-20] MEDS: D5%-0.45NACL+KCL 40MEQ 1,000 ML IV SCH ×2 (01:18→14:00)
[2020-04-20 03:40] LABS: BASOPHILS # (AUTO) 0.05 x10^3/uL (0-0.1); BASOPHILS % (AUTO) 1 % (0-1); EOSINOPHILS # (AUTO) 0.04 x10^3/uL (0-0.4); EOSINOPHILS % (AUTO) 1 % (1-7); LYMPHOCYTES # (AUTO) 1.41 x10^3/uL (1-3.4); LYMPHOCYTES % (AUTO) 42 % (22-44); MD NO; MEAN CORPUSCULAR HEMOGLOBIN 30.2 pg (27.0-34.8); MEAN CORPUSCULAR VOLUME 91.4 fL (80-100); MONOCYTES # (AUTO) 0.36 x10^3/uL (0.2-0.8); MONOCYTES % (AUTO) 11 % (2-9); NEUTROPHILS # (AUTO) 1.54 x10^3/uL (1.8-6.8); NEUTROPHILS % (AUTO) 45 % (42-75); PLATELET COUNT 203 x10^3/uL (130-400); RED CELL DISTRIBUTION WIDTH 18.1 % (9.6-15.2)
[2020-04-20 03:52] LABS: ALANINE AMINOTRANSFERASE 21 U/L (12-78); ALBUMIN 1.7 g/dL (3.4-5.0); ANION GAP 9 mmol/L (5-15); CALCIUM 7.4 mg/dL (8.5-10.1); CHLORIDE 110 mmol/L (98-107); CREATININE 0.46 mg/dL (0.55-1.02)
[2020-04-20 03:54] LABS: ALKALINE PHOSPHATASE 76 U/L (45-117); BILIRUBIN,TOTAL 1.1 mg/dL (0.2-1.0); TOTAL PROTEIN 5.5 g/dL (6.4-8.2)
[2020-04-20] MEDS: METOCLOPRAMIDE 5 MG/ML, 2ML IVPush SCH ×4 (04:37→22:35)
[2020-04-20] MEDS: SUCRALFATE 1 GM/10 ML UDC PO SCH ×4 (06:13→20:50)
[2020-04-20] MEDS: NYSTATIN TOPICAL POWDER 15GM TP SCH ×4 (06:13→20:50)
[2020-04-20 06:52] VITALS: BP 111/74
[2020-04-20] MEDS ORDERED: OXYcodone 5 MG/5 ML ORAL.SOL UDC ONE (07:39)
[2020-04-20] MEDS: PANTOPRAZOLE 40 MG IV IVPush SCH ×2 (07:48→22:35)
[2020-04-20] MEDS: K-PHOS NEUTRAL 250MG TAB PO SCH ×2 (07:48→20:50)
[2020-04-20 12:50] VITALS: BP 89/65
[2020-04-20 14:35] LABS: AMPHETAMINE SCREEN, URINE Negative (Negative); BARBITURATE SCREEN, URINE Negative (Negative); BENZODIAZEPINE SCREEN, URINE Negative (Negative); CANNABINOID SCREEN, URINE Negative (Negative); COCAINE SCREEN, URINE Negative (Negative); OPIATE SCREEN, URINE Negative (Negative)
[2020-04-20 14:44] LABS: METHADONE SCREEN, URINE Negative (Negative)
[2020-04-20] MEDS: METHYLNALTREXONE 12 MG/0.6 ML SYR SQ SCH (16:14)
[2020-04-20] MEDS: HEPARIN 5,000 UNITS/ML, 1ML SQ SCH (18:08)
[2020-04-20 18:35] VITALS: BP 100/61
[2020-04-21 01:09] VITALS: BP 109/7
[2020-04-21 01:12] VITALS: BP 109/73
[2020-04-21] MEDS: OXYcodone IR 5MG TABLET PO PRN ×2 (02:52→10:54)
[2020-04-21] MEDS: D5%-0.45NACL+KCL 40MEQ 1,000 ML IV SCH ×2 (03:09→16:24)
[2020-04-21] MEDS: NYSTATIN TOPICAL POWDER 15GM TP SCH ×4 (05:13→22:09)
[2020-04-21] MEDS: METOCLOPRAMIDE 5 MG/ML, 2ML IVPush SCH ×4 (05:13→22:09)
[2020-04-21] MEDS: HEPARIN 5,000 UNITS/ML, 1ML SQ SCH ×2 (05:13→16:24)
[2020-04-21] MEDS: SUCRALFATE 1 GM/10 ML UDC PO SCH ×4 (07:00→22:09)
[2020-04-21 07:03] VITALS: BP 95/57
[2020-04-21] MEDS: K-PHOS NEUTRAL 250MG TAB PO SCH (08:23)
[2020-04-21] MEDS: PANTOPRAZOLE 40 MG IV IVPush SCH (10:53)
[2020-04-21 10:57] VITALS: BP 102/70
[2020-04-21 13:06] VITALS: BP 99/64
[2020-04-21 18:31] VITALS: BP 89/64
[2020-04-21] MEDS ORDERED: OXYcodone IR 5MG TABLET NG PRN (21:00)
[2020-04-21] MEDS ORDERED: PANTOPRAZOLE 40MG TABLET PO SCH (21:00)
[2020-04-21] MEDS: PANTOPRAZOLE 40MG TABLET NG SCH (22:09)
[2020-04-21] MEDS: K-PHOS NEUTRAL 250MG TAB NG SCH (22:09)
[2020-04-22 00:40] VITALS: BP 109/72
[2020-04-22] MEDS: METOCLOPRAMIDE 5 MG/ML, 2ML IVPush SCH ×3 (05:43→18:09)
[2020-04-22] MEDS: HEPARIN 5,000 UNITS/ML, 1ML SQ SCH ×2 (05:44→18:09)
[2020-04-22] MEDS: PANTOPRAZOLE 40MG TABLET NG SCH ×2 (05:44→16:20)
[2020-04-22] MEDS: D5%-0.45NACL+KCL 40MEQ 1,000 ML IV SCH ×2 (05:44→13:27)
[2020-04-22] MEDS: NYSTATIN TOPICAL POWDER 15GM TP SCH ×3 (05:44→16:19)
[2020-04-22] MEDS: SUCRALFATE 1 GM/10 ML UDC PO SCH ×3 (07:00→16:20)
[2020-04-22 07:12] VITALS: BP 96/66
[2020-04-22 08:19] LABS: ALANINE AMINOTRANSFERASE 22 U/L (12-78); ALBUMIN 1.9 g/dL (3.4-5.0); ANION GAP 6 mmol/L (5-15); CALCIUM 8.2 mg/dL (8.5-10.1); CHLORIDE 115 mmol/L (98-107); CREATININE 0.46 mg/dL (0.55-1.02)
[2020-04-22 08:21] LABS: ALKALINE PHOSPHATASE 78 U/L (45-117); BILIRUBIN,TOTAL 1.2 mg/dL (0.2-1.0); TOTAL PROTEIN 5.8 g/dL (6.4-8.2)
[2020-04-22] MEDS: K-PHOS NEUTRAL 250MG TAB NG SCH (09:39)
[2020-04-22 10:07] LABS: MEAN CORPUSCULAR HEMOGLOBIN 29.8 pg (27.0-34.8); MEAN CORPUSCULAR HGB CONC 32.6 g/dL (32.4-35.8); MEAN CORPUSCULAR VOLUME 91.4 fL (80-100); RED BLOOD COUNT 3.12 x10^6/uL (3.82-5.3); RED CELL DISTRIBUTION WIDTH 19.4 % (9.6-15.2)
[2020-04-22 10:09] LABS: PLATELET COUNT 181 x10^3/uL (130-400)
[2020-04-22 10:19] LABS: MD YES
[2020-04-22 10:21] LABS: <PLATELET ESTIMATE> ADEQUATE; <PLT MORPHOLOGY> NORMAL PLT MORPH; ANISOCYTOSIS 1+; EOS#(MANUAL) 0.05 x10^3/uL (0.0-0.4); EOS% (MANUAL) 2 % (1-7); HYPOCHROMIA 1+; LYMPH#(MANUAL) 1.22 x10^3/uL (1-3.4); LYMPHS% (MANUAL) 45 % (22-44); MONOS#(MANUAL) 0.14 x10^3/uL (0.3-2.7); MONOS% (MANUAL) 5 % (2-9); SEGS% (MANUAL) 48 % (42-75)
[2020-04-22 10:22] LABS: OVALOCYTES 1+
[2020-04-22 12:30] VITALS: BP 104/68
[2020-04-22] MEDS: METHYLNALTREXONE 12 MG/0.6 ML SYR SQ SCH (16:20)
== END 2020-04-22 20:00 | disposition left against medical advice (07) | DRG 243 ==
LOC: ED 21:17 → EDIP 21:24 → INTOOBSV 21:24 → 3N 22:19 → OBSVTOIN 04-13 08:47
PROVIDERS: ADMIT Internal Medicine; ATTEND Internal Medicine
DX: K22.10 Ulcer of esophagus without bleeding (principal); D64.9 Anemia, unspecified; E43 Unspecified severe protein-calorie malnutrition; E83.42 Hypomagnesemia; E86.0 Dehydration; E87.6 Hypokalemia; F11.20 Opioid dependence, uncomplicated; F17.210 Nicotine dependence, cigarettes, uncomplicated; F32.9 Major depressive disorder, single episode, unspecified; F41.9 Anxiety disorder, unspecified; G89.29 Other chronic pain; J44.9 Chronic obstructive pulmonary disease, unspecified; K22.2 Esophageal obstruction; K52.9 Noninfective gastroenteritis and colitis, unspecified; K59.03 Drug induced constipation; T40.605A Adverse effect of unspecified narcotics, initial encounter; Z87.11 Personal history of peptic ulcer disease; Z87.19 Personal history of other diseases of the digestive system; Z91.14 Patient's other noncompliance with medication regimen; Z91.19 Patient's noncompliance with other medical treatment and regimen; Z98.84 Bariatric surgery status; K21.0 Gastro-esophageal reflux disease with esophagitis; Z79.899 Other long term (current) drug therapy; Z68.25 Body mass index [BMI] 25.0-25.9, adult; Z53.29 Procedure and treatment not carried out because of patient's decision for other reasons
CPT/HCPCS: 36415; 74018; 74021; 80048; 80053; 80307; 82607; 82728; 82962; 83540; 83550; 83690; 83735; 84100; 84134; 85025; 87324; 96374; 96375; 99285; G0378; J1170; J1644; J2405; J2550; Q0162; C9113; J0780; J2060; J2765; J3475; J3480; J3490; J7030

== ENCOUNTER 2020-07-09 21:13 | Inpatient (IN) | payer MEDICAID ==
[~2020-07-09] VITALS: Ht 170.2 cm; Wt 68.3 kg
[~2020-07-09 21:13] MED LIST changes: -PANT20TA3 PO; +PANT20TA4 PO
[2020-07-09] MEDS ORDERED: HALOPERIDOL 5 MG/ML IM ONE (21:30)
[2020-07-09] MEDS ORDERED: SODIUM CHLORIDE FLUSH 10ML SYR IVF ONE (21:30)
[2020-07-09] MEDS ORDERED: SODIUM CHLORIDE 0.9% 1,000ML IVBOLUS ONE (21:30)
[2020-07-09] MEDS ORDERED: PROMETHAZINE 25 MG/ML, 1ML IM ONE (21:30)
[2020-07-09] MEDS ORDERED: ONDANSETRON 2MG/ML, 2ML IVPush ONE (21:30)
[2020-07-09] MEDS ORDERED: LORazepam 2 MG/ML, 1ML IVPush ONE (21:30)
[2020-07-09] MEDS ORDERED: KETOROLAC 30 MG/1 ML IVPush ONE (21:30)
[2020-07-09] MEDS ORDERED: ONDANSETRON 2MG/ML, 2ML ONE (21:36)
[2020-07-09] MEDS ORDERED: PROMETHAZINE 25 MG/ML, 1ML ONE (21:36)
[2020-07-09] MEDS ORDERED: KETOROLAC 30 MG/1 ML ONE (21:37)
[2020-07-09] MEDS ORDERED: HALOPERIDOL 5 MG/ML ONE (21:37)
[2020-07-09] MEDS ORDERED: LORazepam 2 MG/ML, 1ML ONE (21:38)
--- NOTE | 2020-07-09 21:47 | NUR ---
ATTEMPTING TO GAIN VENOUS ACCESS VIA US AT THIS TIME, PT HAS SCAR TISSUE TO BOTH ARMS.
--- NOTE | 2020-07-09 22:14 | NUR ---
lab called to send someone to draw at this time
--- NOTE | 2020-07-09 22:21 | NUR ---
PT REQ DILAUDID AND "STRONGER PAIN MEDICATION" WHEN INFORMED NEED MD ORDER PT ANGRY REQ MD AND DILAUDID AGAIN. MD TO BEDSIDE TO DISCUSS POC.
--- NOTE | 2020-07-09 22:22 | NUR ---
PT TO IMAGING AT THIS TIME
--- NOTE | 2020-07-09 22:38 | NUR ---
LAB NOW AT BEDSIDE FOR DRAW
[2020-07-09 23:02] LABS: ALBUMIN 2.4 g/dL (3.4-5.0); ANION GAP 15 mmol/L (5-15); CALCIUM 8.1 mg/dL (8.5-10.1); CHLORIDE 122 mmol/L (98-107); CREATININE 0.88 mg/dL (0.55-1.02)
[2020-07-09 23:14] LABS: ALANINE AMINOTRANSFERASE 29 U/L (12-78); ALKALINE PHOSPHATASE 54 U/L (45-117); BILIRUBIN,TOTAL 1.8 mg/dL (0.2-1.0); TOTAL PROTEIN 6.1 g/dL (6.4-8.2)
--- NOTE | 2020-07-09 23:18 | NUR ---
PT REFUSING BP STS CUFF TOO PAINFUL, RESTING ON GURNEY APPEARS TO BE MORE COMFORTABLE THAN WHEN ARRIVING TO ER
[2020-07-09] MEDS ORDERED: POTASSIUM CHLORIDE 40 MEQ in SODIUM CHLORIDE 0.9% 500 ML IV ONE (23:30)
--- NOTE | 2020-07-09 23:55 | NUR ---
REPORT TO FLOWER VALDEZ PT READY FOR TRANSFER TO ROOM 478.
[2020-07-09 23:56] LABS: BASOPHILS % (AUTO) 1 % (0-1); EOSINOPHILS % (AUTO) 0 % (1-7); LYMPHOCYTES % (AUTO) 38 % (22-44); MEAN CORPUSCULAR HEMOGLOBIN 28.4 pg (27.0-34.8); MEAN CORPUSCULAR HGB CONC 32.2 g/dL (32.4-35.8); MEAN PLATELET VOLUME 7.5 fL (7.4-10.4); MONOCYTES % (AUTO) 8 % (2-9); NEUTROPHILS % (AUTO) 54 % (42-75); PLATELET COUNT 152 x10^3/uL (130-400); RED BLOOD COUNT 3.41 x10^6/uL (3.82-5.3); RED CELL DISTRIBUTION WIDTH 16.2 % (9.6-15.2)
[2020-07-09 23:57] LABS: MD NO
[2020-07-10] MEDS ORDERED: DOCUSATE 100 MG CAPSULE PO PRN
[2020-07-10] MEDS ORDERED: KETOROLAC 30 MG/1 ML IV PRN
[2020-07-10] MEDS ORDERED: METHOCARBAMOL 500 MG TABLET PO PRN
[2020-07-10] MEDS ORDERED: IBUPROFEN 600 MG TABLET PO PRN
[2020-07-10] MEDS ORDERED: ENALAPRILAT 1.25 MG/ML, 2ML IVPush PRN
[2020-07-10] MEDS ORDERED: GUAIFENESIN/DM 200-20MG, 10ML UDC PO PRN
[2020-07-10] MEDS ORDERED: METOCLOPRAMIDE 5 MG/ML, 2ML IVPush PRN
[2020-07-10] MEDS ORDERED: D5%-LACTATED RINGERS 1,000 ML IV SCH (00:30)
[2020-07-10 00:55] VITALS: BP 124/73
[2020-07-10 05:57] LABS: BASOPHILS % (AUTO) 0 % (0-1); EOSINOPHILS % (AUTO) 1 % (1-7); LYMPHOCYTES % (AUTO) 45 % (22-44); MEAN CORPUSCULAR HEMOGLOBIN 28.1 pg (27.0-34.8); MEAN CORPUSCULAR HGB CONC 32.5 g/dL (32.4-35.8); MEAN PLATELET VOLUME 7.9 fL (7.4-10.4); MONOCYTES % (AUTO) 6 % (2-9); NEUTROPHILS % (AUTO) 48 % (42-75); PLATELET COUNT 168 x10^3/uL (130-400); RED BLOOD COUNT 3.39 x10^6/uL (3.82-5.3); RED CELL DISTRIBUTION WIDTH 16.5 % (9.6-15.2)
[2020-07-10 06:04] LABS: ALBUMIN 1.9 g/dL (3.4-5.0); ANION GAP 15 mmol/L (5-15); CALCIUM 7.7 mg/dL (8.5-10.1); CHLORIDE 126 mmol/L (98-107)
[2020-07-10 06:10] LABS: ALANINE AMINOTRANSFERASE 24 U/L (12-78); ALKALINE PHOSPHATASE 39 U/L (45-117); BILIRUBIN,TOTAL 0.9 mg/dL (0.2-1.0); CREATININE 0.79 mg/dL (0.55-1.02); TOTAL PROTEIN 4.6 g/dL (6.4-8.2)
[2020-07-10 06:24] LABS: MD NO
[2020-07-10] MEDS: FAMOTIDINE 20 MG/2 ML IVPush SCH ×2 (06:39→09:28)
[2020-07-10] MEDS: ENOXAPARIN 40 MG/0.4 ML SQ SCH (06:39)
[2020-07-10 08:33] VITALS: BP 98/56
[2020-07-10] MEDS: POTASSIUM CHLORIDE 20 MEQ in D5%-0.2% NACL 1,000 ML IV SCH ×2 (10:44→18:48)
[2020-07-10 12:30] VITALS: BP 97/52
[2020-07-10] MEDS: OXYcodone IR 5MG TABLET PO PRN ×2 (15:39→21:37)
[2020-07-10] MEDS: METOCLOPRAMIDE 5 MG/ML, 2ML IVPush SCH ×2 (16:08→21:00)
[2020-07-10] MEDS: FAMOTIDINE 20 MG TABLET PO SCH (21:00)
[2020-07-10] MEDS ORDERED: FAMOTIDINE 40 MG TABLET ONE (21:33)
[2020-07-10 21:40] VITALS: BP 91/53
[2020-07-11 02:31] VITALS: BP 93/56
[2020-07-11] MEDS: POTASSIUM CHLORIDE 20 MEQ in D5%-0.2% NACL 1,000 ML IV SCH (05:04)
[2020-07-11] MEDS: ENOXAPARIN 40 MG/0.4 ML SQ SCH (05:58)
[2020-07-11 07:21] LABS: ANION GAP 12 mmol/L (5-15); CALCIUM 7.4 mg/dL (8.5-10.1); CHLORIDE 121 mmol/L (98-107); CREATININE 1.12 mg/dL (0.55-1.02)
[2020-07-11 07:22] LABS: BASOPHILS % (AUTO) 1 % (0-1); EOSINOPHILS % (AUTO) 1 % (1-7); LYMPHOCYTES % (AUTO) 44 % (22-44); MEAN CORPUSCULAR HEMOGLOBIN 28.5 pg (27.0-34.8); MEAN CORPUSCULAR HGB CONC 32.3 g/dL (32.4-35.8); MEAN PLATELET VOLUME 7.9 fL (7.4-10.4); MONOCYTES % (AUTO) 7 % (2-9); NEUTROPHILS % (AUTO) 47 % (42-75); PLATELET COUNT 134 x10^3/uL (130-400); RED BLOOD COUNT 3.23 x10^6/uL (3.82-5.3); RED CELL DISTRIBUTION WIDTH 16.7 % (9.6-15.2)
[2020-07-11 07:23] LABS: MD NO
[2020-07-11 07:45] VITALS: BP 99/66
[2020-07-11 07:57] VITALS: BP 129/83
[2020-07-11] MEDS ORDERED: FAMOTIDINE 40 MG TABLET ONE ×2 (08:40→21:15)
[2020-07-11] MEDS: FAMOTIDINE 20 MG TABLET PO SCH ×2 (08:47→21:00)
[2020-07-11] MEDS: METOCLOPRAMIDE 5 MG/ML, 2ML IVPush SCH ×3 (08:47→21:19)
[2020-07-11] MEDS: OXYcodone IR 5MG TABLET PO PRN ×3 (08:47→21:20)
[2020-07-11] MEDS ORDERED: MAGNESIUM SULFATE PMX 2GM/50ML 50 ML IV ONE (09:00)
[2020-07-11] MEDS ORDERED: POTASSIUM CHLORIDE 40 MEQ in SODIUM CHLORIDE 0.9% 500 ML IV ONE ×2 (09:00→17:00)
[2020-07-11 13:49] VITALS: BP 93/53
[2020-07-11] MEDS: ONDANSETRON 2MG/ML, 2ML IVPush PRN (15:30)
[2020-07-11 19:20] VITALS: BP 106/71
[2020-07-11] MEDS: ZOLPIDEM 5MG TABLET PO PRN (21:20)
[2020-07-12 00:21] VITALS: BP 105/71
[2020-07-12] MEDS: OXYcodone IR 5MG TABLET PO PRN ×3 (04:09→21:25)
[2020-07-12] MEDS: ENOXAPARIN 40 MG/0.4 ML SQ SCH (06:40)
[2020-07-12 07:25] VITALS: BP 90/52
[2020-07-12 07:42] LABS: ANION GAP 7 mmol/L (5-15); CALCIUM 7.6 mg/dL (8.5-10.1); CHLORIDE 119 mmol/L (98-107); CREATININE 0.87 mg/dL (0.55-1.02)
[2020-07-12] MEDS ORDERED: SODIUM PHOSPHATE 20 MMOL in SODIUM CHLORIDE 0.9% 500 ML IV ONE (09:00)
[2020-07-12] MEDS ORDERED: FAMOTIDINE 40 MG TABLET ONE ×3 (09:25→21:19)
[2020-07-12] MEDS: METOCLOPRAMIDE 5 MG/ML, 2ML IVPush SCH ×3 (09:32→21:23)
[2020-07-12] MEDS: FAMOTIDINE 20 MG TABLET PO SCH ×2 (09:32→21:00)
[2020-07-12] MEDS: ONDANSETRON 2MG/ML, 2ML IVPush PRN ×3 (09:40→21:24)
[2020-07-12 13:56] VITALS: BP 95/69
[2020-07-12 17:32] LABS: MICROSCOPIC INDICATED
[2020-07-12 18:56] VITALS: BP 103/71
[2020-07-12] MEDS: ZOLPIDEM 5MG TABLET PO PRN (21:24)
[2020-07-13 04:15] VITALS: BP 96/59
[2020-07-13] MEDS: ONDANSETRON 2MG/ML, 2ML IVPush PRN (04:15)
[2020-07-13] MEDS: OXYcodone IR 5MG TABLET PO PRN (04:15)
[2020-07-13 05:21] LABS: BASOPHILS % (AUTO) 1 % (0-1); EOSINOPHILS % (AUTO) 2 % (1-7); LYMPHOCYTES % (AUTO) 43 % (22-44); MEAN CORPUSCULAR HGB CONC 32.7 g/dL (32.4-35.8); MEAN PLATELET VOLUME 8.1 fL (7.4-10.4); MONOCYTES % (AUTO) 6 % (2-9); NEUTROPHILS % (AUTO) 49 % (42-75); PLATELET COUNT 138 x10^3/uL (130-400); RED CELL DISTRIBUTION WIDTH 16.8 % (9.6-15.2)
[2020-07-13 05:34] LABS: ANION GAP 5 mmol/L (5-15); CHLORIDE 117 mmol/L (98-107)
[2020-07-13 05:37] LABS: CALCIUM 7.4 mg/dL (8.5-10.1); CREATININE 0.65 mg/dL (0.55-1.02)
[2020-07-13] MEDS: ENOXAPARIN 40 MG/0.4 ML SQ SCH (06:22)
[2020-07-13 07:33] VITALS: BP 90/55
[2020-07-13 07:57] LABS: MD SCAN
[2020-07-13] MEDS ORDERED: CEFTRIAXONE PMX 2GM/50ML 50 ML IVPB SCH (09:30)
[2020-07-13] MEDS ORDERED: FAMOTIDINE 40 MG TABLET ONE (10:14)
[2020-07-13] MEDS: FAMOTIDINE 20 MG TABLET PO SCH (10:23)
[2020-07-13] MEDS: METOCLOPRAMIDE 5 MG/ML, 2ML IVPush SCH (10:26)
[2020-07-13] MEDS ORDERED: KETOROLAC 30 MG/1 ML IVPush PRN (12:00)
[2020-07-14] MEDS ORDERED: LORazepam 2 MG/ML, 1ML IVPush ONE (10:00)
== END 2020-07-13 13:11 | disposition left against medical advice (07) | DRG 424 ==
LOC: ED 22:25 → EDIP 23:57 → OBSVTOIN 23:57 → INTOOBSV 23:57 → 4NE 23:59 → 4NW 07-11 12:55
PROVIDERS: ADMIT Internal Medicine; ATTEND Internal Medicine
DX: E16.2 Hypoglycemia, unspecified (principal); E44.0 Moderate protein-calorie malnutrition; E66.9 Obesity, unspecified; E83.42 Hypomagnesemia; E86.0 Dehydration; E87.0 Hyperosmolality and hypernatremia; E87.6 Hypokalemia; E87.8 Other disorders of electrolyte and fluid balance, not elsewhere classified; F17.210 Nicotine dependence, cigarettes, uncomplicated; G89.29 Other chronic pain; J44.9 Chronic obstructive pulmonary disease, unspecified; R17 Unspecified jaundice; Z68.33 Body mass index [BMI] 33.0-33.9, adult; Z87.11 Personal history of peptic ulcer disease; Z87.19 Personal history of other diseases of the digestive system; Z98.84 Bariatric surgery status; R10.33 Periumbilical pain; Z98.51 Tubal ligation status; Z90.49 Acquired absence of other specified parts of digestive tract; Z76.5 Malingerer [conscious simulation]; Z53.29 Procedure and treatment not carried out because of patient's decision for other reasons; Z88.5 Allergy status to narcotic agent
CPT/HCPCS: 36415; 74018; 74022; 74250; 80048; 80053; 81001; 83690; 83735; 84100; 85025; 87077; 87086; 87186; 96372; 96374; 99285; G0378; J0696; J1650; J1885; J2405; J2550; J3480; J1630; J2060; J2765; J3475; J7030; J7040; J7121

== ENCOUNTER 2021-02-06 19:21 | Inpatient (IN) | payer MEDICAID ==
[~2021-02-06] VITALS: Ht 170.2 cm; Wt 46.9 kg
[~2021-02-06 19:21] MED LIST changes: -NICO-487 TD; +NICO-587 TD
--- NOTE | 2021-02-06 19:33 | NUR ---
BIBA FOR ABD PAIN 10/10 IN UPPER MIDDLE ABD FOR A FEW HOURS. PT FOUND WALKING AROUND OUTSIDE HOUSE IN NIGHT GOWN AND NO PANTS OR UNDERWEAR, BUT COVERED WITH BLANKET. PT WAS DC'D FROM [facility] 2 DAYS AGO AFTER 2 MO ADMISSION FOR FTT IN WHICH SHE HAD A GASTRIC TUBE PLACED IN LL[place] TO HELP WITH FOOD INTAKE. PT STATES SINCE BEING DC'D HOME SHE HAS NOT BEEN ABLE TO USE IT DUE TO PAIN. PT LIVES WITH ROOMATE AND PER EMS THEY HAVE CALLED 911 MULTIPLE TIMES IN PAST COUPLE OF DAYS. EMS REPORTS PT ABLE TO WALK FROM HOUSE TO [facility]. PT YELLING AND MOANING IN PAIN, REQUESTING PAIN MEDICATIONS AND ZOFRAN SPECIFICALLY. PT EDUCATED ON NEEDING MD ORDERS FOR MEDS AND PT REFUSING EDUCATION, CONTINUES TO YELL. PT HAS FOAM DRESSING ON LEFT HIP IN WHICH SHE STATES IS FOR PROTECTION FROM BED SORES, DRESSING IS DATED 02/02.
[2021-02-06] MEDS ORDERED: ONDANSETRON 2MG/ML, 2ML ONE (20:04)
[2021-02-06] MEDS ORDERED: HYDROmorphone 1 MG/ML, 1ML INJ ONE (20:04)
[2021-02-06 20:12] LABS: BASOPHILS % (AUTO) 0 % (0-1); EOSINOPHILS % (AUTO) 1 % (1-7); LYMPHOCYTES % (AUTO) 9 % (22-44); MEAN CORPUSCULAR HEMOGLOBIN 31.5 pg (27.0-34.8); MEAN CORPUSCULAR HGB CONC 33.7 g/dL (32.4-35.8); MEAN PLATELET VOLUME 7.7 fL (7.4-10.4); MONOCYTES % (AUTO) 6 % (2-9); NEUTROPHILS % (AUTO) 84 % (42-75); PLATELET COUNT 269 x10^3/uL (130-400); RED BLOOD COUNT 3.36 x10^6/uL (3.82-5.3); RED CELL DISTRIBUTION WIDTH 14.6 % (9.6-15.2)
--- NOTE | 2021-02-06 20:14 | NUR ---
dr fishman at bedside. verbal orders from dr fishman for 1 mg dilaudid iv and 4 mg zofran iv. verbal orders repeated for verification.
[2021-02-06 20:15] LABS: MD NO
[2021-02-06 20:19] LABS: INTERNATIONAL NORMALIZED RATIO 1.02 (0.93-1.1); PROTHROMBIN TIME 10.9 Seconds (9.6-11.5)
[2021-02-06] MEDS ORDERED: HYDROmorphone 1 MG/ML, 1ML INJ IV STA (20:19)
[2021-02-06 20:24] LABS: ALANINE AMINOTRANSFERASE 58 U/L (12-78); ALBUMIN 3.2 g/dL (3.4-5.0); ANION GAP 4 mmol/L (5-15); CALCIUM 9.5 mg/dL (8.5-10.1); CHLORIDE 106 mmol/L (98-107); CREATININE 0.54 mg/dL (0.55-1.02)
[2021-02-06 20:26] LABS: ALKALINE PHOSPHATASE 74 U/L (45-117); BILIRUBIN,TOTAL 0.4 mg/dL (0.2-1.0); TOTAL PROTEIN 8.4 g/dL (6.4-8.2)
[2021-02-06] MEDS ORDERED: MAALOX/HYOSCYAMINE/LIDOCAINE 45 ML BTL PEG ONE (20:30)
[2021-02-06] MEDS ORDERED: ONDANSETRON 2MG/ML, 2ML IVPush ONE (20:30)
[2021-02-06] MEDS ORDERED: PANTOPRAZOLE 80 MG in SODIUM CHLORIDE 0.9% 50 ML IVPB ONE (20:30)
[2021-02-06] MEDS ORDERED: PANTOPRAZOLE 40 MG IV IVPush SCH (20:30)
[2021-02-06] MEDS ORDERED: PANTOPRAZOLE 80 MG in SODIUM CHLORIDE 0.9% 100 ML IV SCH ×2 (20:30→23:00)
[2021-02-06] MEDS ORDERED: MAALOX/HYOSCYAMINE/LIDOCAINE 45 ML BTL ONE (20:33)
[2021-02-06] MEDS ORDERED: PANTOPRAZOLE 40 MG IV ONE ×2 (20:33→21:44)
--- NOTE | 2021-02-06 20:43 | NUR ---
pt able to drink gi cocktail, no s/sx of aspiration.
--- NOTE | 2021-02-06 20:44 | NUR ---
pt to ct
--- NOTE | 2021-02-06 20:54 | NUR ---
40 mg protonix ivp given before new orders for gtt placed. md aware, verbal orders to give 40 mg instead of 80 with intial protonix gtt.
[2021-02-06] MEDS ORDERED: OMNIPAQUE 350 MG/ML, 100ML BOTTLE ONE (20:58)
[2021-02-06 22:16] LABS: MICROSCOPIC AUTO
[2021-02-06] MEDS: D5%-0.45% NACL 1,000 ML IV SCH (23:20)
[2021-02-07] MEDS: BISACODYL 10 MG SUPP PR SCH ×2 (00:36→08:19)
[2021-02-07] MEDS: ONDANSETRON 2MG/ML, 2ML IVPush PRN (00:36)
[2021-02-07] MEDS: HYDROmorphone 2 MG/ML, 1ML IVPush PRN ×5 (01:22→21:44)
[2021-02-07 02:09] VITALS: BP 89/51
[2021-02-07] MEDS: D5%-0.45% NACL 1,000 ML IV SCH ×2 (03:34→18:23)
[2021-02-07 05:26] LABS: BASOPHILS % (AUTO) 1 % (0-1); EOSINOPHILS % (AUTO) 3 % (1-7); LYMPHOCYTES % (AUTO) 27 % (22-44); MD NO; MEAN CORPUSCULAR HEMOGLOBIN 31.9 pg (27.0-34.8); MEAN CORPUSCULAR HGB CONC 34.3 g/dL (32.4-35.8); MEAN PLATELET VOLUME 7.4 fL (7.4-10.4); MONOCYTES % (AUTO) 9 % (2-9); NEUTROPHILS % (AUTO) 61 % (42-75); PLATELET COUNT 212 x10^3/uL (130-400); RED BLOOD COUNT 2.75 x10^6/uL (3.82-5.3); RED CELL DISTRIBUTION WIDTH 14.3 % (9.6-15.2)
[2021-02-07 05:39] LABS: ANION GAP 5 mmol/L (5-15); CALCIUM 8.4 mg/dL (8.5-10.1); CHLORIDE 106 mmol/L (98-107); CREATININE 0.44 mg/dL (0.55-1.02)
[2021-02-07 08:00] VITALS: BP 95/59
[2021-02-07] MEDS ORDERED: CHLORHEXIDINE 15 ML UDC ONE (08:24)
[2021-02-07] MEDS ORDERED: CHOLECALCIFEROL 400 UNITS TABLET PO SCH (09:00)
[2021-02-07] MEDS ORDERED: PHENYLEPHRINE 10 MG/ML ONE (10:10)
[2021-02-07] MEDS ORDERED: LIDOCAINE 1%, 20ML ONE (10:10)
[2021-02-07] MEDS ORDERED: FENTANYL PF 100 MCG/2ML ONE ×2 (10:19→11:15)
[2021-02-07] MEDS ORDERED: PROPOFOL 10 MG/ML, 20ML ONE (10:20)
[2021-02-07] MEDS ORDERED: IRON DEXTRAN COMPLEX 25 MG in SODIUM CHLORIDE 0.9% 50 ML IV ONE (10:30)
[2021-02-07] MEDS ORDERED: EPINEPHRINE 1 MG/ML, 1ML SQ PRN (10:30)
[2021-02-07] MEDS ORDERED: AMIODARONE 150 MG in DEXTROSE 5% 100 ML IV ONE (11:00)
[2021-02-07] MEDS ORDERED: AMIODARONE 50 MG/ML, 3ML IVPush ONE (11:00)
[2021-02-07] MEDS ORDERED: FILTER 0.22 MICRON FOR AMIODARONE IV PRN (11:00)
[2021-02-07] MEDS: FENTANYL PF 100 MCG/2ML IV PRN ×2 (11:15→11:38)
[2021-02-07] MEDS ORDERED: ONDANSETRON 2MG/ML, 2ML IVPush PRN (11:30)
[2021-02-07] MEDS ORDERED: SODIUM CHLORIDE 0.9%, 500ML IV ONE (11:30)
[2021-02-07] MEDS ORDERED: HYDROmorphone 1 MG/ML, 1ML INJ IVPush PRN (11:30)
[2021-02-07] MEDS ORDERED: OXYcodone 5 MG/5 ML ORAL.SOL UDC PO PRN (11:30)
[2021-02-07 11:47] LABS: TROPONIN I < 0.015 ng/mL (0.000-0.045)
[2021-02-07] MEDS ORDERED: SODIUM CHLORIDE 0.9% IV ONE (12:00)
[2021-02-07] MEDS ORDERED: IRON DEXTRAN COMPLEX IV ONE (12:00)
[2021-02-07] MEDS ORDERED: MAALOX/HYOSCYAMINE/LIDOCAINE 45 ML BTL PO PRN (14:00)
[2021-02-07 15:44] VITALS: BP 98/61
[2021-02-07] MEDS ORDERED: SUCRALFATE 1 GM TABLET PO SCH ×2 (16:00)
[2021-02-07] MEDS: SUCRALFATE 1 GM/10 ML UDC PO SCH ×2 (17:49→19:38)
[2021-02-07 19:43] VITALS: BP 97/63
[2021-02-07] MEDS: PANTOPRAZOLE 40MG TABLET PO SCH (19:48)
[2021-02-08 01:32] VITALS: BP 92/56
[2021-02-08] MEDS: HYDROmorphone 2 MG/ML, 1ML IVPush PRN ×5 (03:27→19:58)
[2021-02-08] MEDS: D5%-0.45% NACL 1,000 ML IV SCH ×3 (03:27→23:07)
[2021-02-08 07:38] VITALS: BP 91/55
[2021-02-08] MEDS: SUCRALFATE 1 GM/10 ML UDC PO SCH ×4 (07:42→19:58)
[2021-02-08] MEDS: PANTOPRAZOLE 40MG TABLET PO SCH ×2 (07:42→19:58)
[2021-02-08] MEDS: CHOLECALCIFEROL 400 UNITS TABLET PO SCH (07:42)
[2021-02-08] MEDS: ONDANSETRON 2MG/ML, 2ML IVPush PRN (07:45)
[2021-02-08] MEDS: BISACODYL 10 MG SUPP PR SCH ×2 (09:00→14:12)
[2021-02-08 19:43] VITALS: BP 114/66
[2021-02-09 00:02] VITALS: BP 102/63
[2021-02-09] MEDS: HYDROmorphone 2 MG/ML, 1ML IVPush PRN ×5 (00:04→16:33)
[2021-02-09 07:11] VITALS: BP 116/58
[2021-02-09] MEDS: SUCRALFATE 1 GM/10 ML UDC PO SCH ×2 (08:34→11:46)
[2021-02-09] MEDS: PANTOPRAZOLE 40MG TABLET PO SCH (08:34)
[2021-02-09] MEDS: CHOLECALCIFEROL 400 UNITS TABLET PO SCH (08:34)
[2021-02-09] MEDS: D5%-0.45% NACL 1,000 ML IV SCH (08:38)
[2021-02-09] MEDS: BISACODYL 10 MG SUPP PR SCH (08:38)
[2021-02-09 12:03] VITALS: BP 105/61
== END 2021-02-09 17:18 | disposition home or self-care (01) | DRG 241 ==
LOC: ED 22:10 → EDIP 22:26 → 3N 23:02 → 5SO 02-07 12:55 → 3N 02-08 19:37
PROVIDERS: ADMIT Family Medicine; ATTEND Family Medicine
PROC: 0D758ZZ Dilation of Esophagus, Via Natural or Artificial Opening Endoscopic (ICD-10-PCS; 2021-02-07)
PROC: 0DB58ZX Excision of Esophagus, Via Natural or Artificial Opening Endoscopic, Diagnostic (ICD-10-PCS; 2021-02-07)
PROC: 0DC68ZZ Extirpation of Matter from Stomach, Via Natural or Artificial Opening Endoscopic (ICD-10-PCS; 2021-02-07)
PROC: 0DH67UZ Insertion of Feeding Device into Stomach, Via Natural or Artificial Opening (ICD-10-PCS; principal; 2021-02-07 10:15)
DX: K25.4 Chronic or unspecified gastric ulcer with hemorrhage (principal); E43 Unspecified severe protein-calorie malnutrition; I48.91 Unspecified atrial fibrillation; K22.2 Esophageal obstruction; K83.8 Other specified diseases of biliary tract; Z93.4 Other artificial openings of gastrointestinal tract status; D50.9 Iron deficiency anemia, unspecified; Z20.822 Contact with and (suspected) exposure to COVID-19; F17.200 Nicotine dependence, unspecified, uncomplicated; K22.10 Ulcer of esophagus without bleeding; G89.29 Other chronic pain; J44.9 Chronic obstructive pulmonary disease, unspecified; K59.00 Constipation, unspecified; M19.90 Unspecified osteoarthritis, unspecified site; R63.3 Feeding difficulties; T40.605A Adverse effect of unspecified narcotics, initial encounter; Z51.5 Encounter for palliative care; R63.0 Anorexia; R74.8 Abnormal levels of other serum enzymes; I25.2 Old myocardial infarction; Z76.5 Malingerer [conscious simulation]; Z80.1 Family history of malignant neoplasm of trachea, bronchus and lung; Z98.84 Bariatric surgery status; Z90.49 Acquired absence of other specified parts of digestive tract; Z88.5 Allergy status to narcotic agent; Z88.8 Allergy status to other drugs, medicaments and biological substances; Z79.899 Other long term (current) drug therapy; Z79.891 Long term (current) use of opiate analgesic; Z79.01 Long term (current) use of anticoagulants; Z68.1 Body mass index [BMI] 19.9 or less, adult
CPT/HCPCS: 36415; 74177; 80048; 80053; 81001; 82306; 82728; 83540; 83550; 83690; 83735; 84100; 84443; 84484; 85025; 85610; 86850; 86900; 87086; 87635; 88305; 93005; 96374; 99285; G0378; J1170; J1750; J2405; J2704; J3010; Q9967; C1725; C9113; J0282; J2370; J7040; J7050

== ENCOUNTER 2021-02-12 10:08 | Observation (INO) | payer MEDICAID ==
[~2021-02-12] VITALS: Ht 165.1 cm; Wt 50.5 kg
--- NOTE | 2021-02-12 10:15 | NUR ---
Pt ambulating in room, calling out for help, and difficulty redirecting to answer MD questions while MD is at bedside for exam. Pt placed in gown, repositioned in bed, covered with a sheet and call light in reach. tibco developer deferred until pt is able to be medicated and calm down.
[2021-02-12] MEDS ORDERED: PLEASE ENTER HEIGHT AND WEIGHT MC SCH (10:30)
[2021-02-12] MEDS ORDERED: MAALOX/HYOSCYAMINE/LIDOCAINE 45 ML BTL PO ONE ×3 (10:30→23:30)
[2021-02-12] MEDS ORDERED: SODIUM CHLORIDE 0.9%, 500ML IVBOLUS ONE (10:30)
[2021-02-12] MEDS ORDERED: METOCLOPRAMIDE 5 MG/ML, 2ML IVPush ONE ×2 (10:30→16:30)
[2021-02-12] MEDS ORDERED: DIPHENHYDRAMINE 50 MG/ML, 1ML IVPush ONE ×2 (10:30→16:30)
[2021-02-12] MEDS ORDERED: KETAMINE 10 MG/ML, 20ML IV ONE ×3 (10:30→16:30)
[2021-02-12] MEDS ORDERED: MAALOX/HYOSCYAMINE/LIDOCAINE 45 ML BTL ONE ×2 (10:35→15:33)
[2021-02-12] MEDS ORDERED: KETAMINE 10 MG/ML, 20ML ONE (10:35)
[2021-02-12] MEDS ORDERED: DIPHENHYDRAMINE 50 MG/ML, 1ML ONE ×2 (10:35→16:32)
[2021-02-12] MEDS ORDERED: METOCLOPRAMIDE 5 MG/ML, 2ML ONE ×2 (10:35→16:32)
[2021-02-12 11:02] LABS: BASOPHILS % (AUTO) 0 % (0-1); EOSINOPHILS % (AUTO) 0 % (1-7); LYMPHOCYTES % (AUTO) 13 % (22-44); MEAN CORPUSCULAR HEMOGLOBIN 31.2 pg (27.0-34.8); MEAN CORPUSCULAR HGB CONC 33.6 g/dL (32.4-35.8); MEAN PLATELET VOLUME 7.1 fL (7.4-10.4); MONOCYTES % (AUTO) 6 % (2-9); NEUTROPHILS % (AUTO) 80 % (42-75); PLATELET COUNT 359 x10^3/uL (130-400); RED CELL DISTRIBUTION WIDTH 14.5 % (9.6-15.2)
[2021-02-12 11:12] LABS: ALANINE AMINOTRANSFERASE 35 U/L (12-78); ANION GAP 7 mmol/L (5-15); CALCIUM 8.7 mg/dL (8.5-10.1); CHLORIDE 110 mmol/L (98-107); CREATININE 0.54 mg/dL (0.55-1.02)
[2021-02-12 11:15] LABS: ALKALINE PHOSPHATASE 70 U/L (45-117); BILIRUBIN,TOTAL 0.5 mg/dL (0.2-1.0); TOTAL PROTEIN 7.6 g/dL (6.4-8.2)
--- NOTE | 2021-02-12 11:20 | NUR ---
IV started and IV meds with NS bolus running started as ordered. Good response after Ketamine for pain noted.
--- NOTE | 2021-02-12 12:01 | NUR ---
Pt reassessed with FLACC score of 0 and drowsy due to medications. VSS.
--- NOTE | 2021-02-12 13:31 | NUR ---
notified of pt's request for more pain meds.
--- NOTE | 2021-02-12 13:36 | NUR ---
PT MICHELLE SANTIAGO 1320, URINE SAMPLE SENT TO LAB, PT'S CALL LIGHT IS IN REACH Addendum: 02/12/21 at 1338 by DEBBI PT MICHELLE CATHED 1320, USING STERILE TECHNIQUE, URINE SAMPLE SENT TO LAB, PT'S CALL LIGHT IS IN REACH
[2021-02-12 13:38] LABS: MICROSCOPIC NOT IND
--- NOTE | 2021-02-12 13:39 | NUR ---
Meal break report given and care transferred now. RN aware of pt request for more pain meds and high fall risk.
--- NOTE | 2021-02-12 13:54 | NUR ---
Task RN: MD ordered pain medication, as pain reported still being in pain to primary RN. Pt was sleeping on gurney, bedrail upx2. Pain medication was not adminstered at this time. VSS. Call light w/in reach.
--- NOTE | 2021-02-12 14:10 | NUR ---
TASK RN: pt to CT, tech p/u pt informed of difficult stick.
--- NOTE | 2021-02-12 14:15 | NUR ---
Report received from meal break RN and care reassumed. Pt in CT now and was asleep when pain med orders for repeat dose of Ketamine noted while this RN off unit. RN covering states she did not given her meds while asleep.
[2021-02-12] MEDS ORDERED: OMNIPAQUE 350 MG/ML, 100ML BOTTLE ONE (14:28)
--- NOTE | 2021-02-12 14:38 | NUR ---
Pt yelling out loudly, "Nurse, Nurse! Pain! Pain!" and causing other patrons to show signs of distress and come looking for someone. Pt already called educational aid light and secondary RN already stopped in and checked on pt and notified this RN that pt in need of meds while this RN in another room with a critical pt. Pt notified she will have to wait until RN is available and that is when she started yelling out. Pt medicated as ordered with repeat dose of Ketamine with VS as documented.
--- NOTE | 2021-02-12 14:45 | NUR ---
Speaking with Dr. Rosenthal about pt's pain concerns and that second dose of Ketamine did not seem to be touching pt's pain. MD looking at last visit documents and noted EGD for hematemesis with ulcer found at that time. Still awaiting today's CT reading by radiologist at this time. Med orders being placed by MD for Protonix and Carafate.
--- NOTE | 2021-02-12 14:50 | NUR ---
Called to room by UC and found pt with blood all over the floor and bed standing with multiple techs at her side and IV removed with bleeding coming from IV site. Gauze dsg added with bleeding controlled. Pt cleaned up and full linen change completed and floor/counter/sink cleaned.
--- NOTE | 2021-02-12 15:00 | NUR ---
New IV started to L hand x1 attempt and pt asking for Fentanyl, Ketamine or Dilaudid. Pt notified that current MD orders are for Carafate and Protonix. Protonix given after IV started, awaiting Carafate to come from pharmacy.
--- NOTE | 2021-02-12 15:01 | NUR ---
aircraft worker request for sitter for pt safety due to high fall risk with continuous climbing out of bed and behaviors increasing pt safety risk.
[2021-02-12] MEDS ORDERED: PANTOPRAZOLE 40 MG IV ONE (15:09)
[2021-02-12] MEDS ORDERED: PANTOPRAZOLE 40 MG IV IVPush ONE (15:30)
[2021-02-12] MEDS ORDERED: SUCRALFATE 1 GM TABLET PO ONE (15:30)
[2021-02-12] MEDS ORDERED: SUCRALFATE 1 GM/10 ML UDC PO ONE ×2 (15:30→16:00)
--- NOTE | 2021-02-12 15:42 | NUR ---
GI cocktail given at this time. airborne weapons technical manager at doorway for 1:1 sitter for pt safety as requested.
--- NOTE | 2021-02-12 15:46 | NUR ---
Carafate arrived from pharmacy and given to pt at this time. CT results and lab results reviewed and chart marked for MD recheck.
--- NOTE | 2021-02-12 16:22 | NUR ---
Pt sleeping but easily aroused with VS assessment. 1:1 sitter present. Pt awaiting MD to come speak to her about results and plan of care. Socks and more warm blankets provided at this time. Call light in reach.
--- NOTE | 2021-02-12 16:43 | NUR ---
MD ordered meds for pt which were given now. Pt aware of admission request from MD due to changes in CT noted. Lights dimmed and pt sleeping after IV medical biller/coder. Sitter released from observation for now and call light in reach.
--- NOTE | 2021-02-12 16:58 | NUR ---
Attempted to call report to RN on 3rd floor Med/tele unit without success. RN unavailable and will call back when able.
[2021-02-12] MEDS ORDERED: METHYLNALTREXONE 12 MG/0.6 ML SYR SQ ONE ×2 (17:00→17:21)
--- NOTE | 2021-02-12 17:20 | NUR ---
Report given to JOSÉ MIGUEL Reyes and pt readied for transport to floor now.
--- NOTE | 2021-02-12 17:22 | NUR ---
Pt given Relistor with aseptic technique prior to going upstairs.
[2021-02-12] MEDS ORDERED: ONDANSETRON ODT 4 MG PO PRN (18:00)
[2021-02-12] MEDS ORDERED: POLYETHYLENE GLYCOL 17 GM PACKET PO PRN (18:00)
[2021-02-12] MEDS ORDERED: ENOXAPARIN 40 MG/0.4 ML SQ SCH (18:00)
[2021-02-12] MEDS ORDERED: ACETAMINOPHEN 325 MG TABLET PO PRN (18:00)
[2021-02-12] MEDS ORDERED: hydrALAzine 20 MG/ML, 1ML IVPush PRN (18:00)
[2021-02-12] MEDS ORDERED: ONDANSETRON 2MG/ML, 2ML IVPush PRN (18:00)
[2021-02-12] MEDS ORDERED: MELATONIN 5 MG TABLET PO PRN (18:00)
[2021-02-12] MEDS ORDERED: METOCLOPRAMIDE 5 MG/ML, 2ML IVPush PRN (18:00)
[2021-02-12] MEDS ORDERED: LIDODERM 5% PATCH TD SCH (18:30)
[2021-02-12] MEDS: LACTATED RINGERS 1,000 ML IV SCH ×2 (18:33→23:30)
[2021-02-12 19:06] VITALS: BP 127/78
[2021-02-12] MEDS ORDERED: SUCRALFATE 1 GM/10 ML UDC PO SCH (21:00)
[2021-02-12] MEDS ORDERED: LACTULOSE 10 GM/15 ML UDC PO SCH (21:00)
[2021-02-12] MEDS: SUCRALFATE 1 GM/10 ML UDC JT SCH (21:23)
[2021-02-12] MEDS: LACTULOSE 10 GM/15 ML UDC JT SCH (21:23)
[2021-02-12] MEDS: BISACODYL 10 MG SUPP PR SCH (21:24)
[2021-02-12] MEDS ORDERED: MELATONIN 5 MG TABLET JT PRN (21:30)
[2021-02-12] MEDS: POLYETHYLENE GLYCOL 17 GM PACKET PO SCH (23:31)
[2021-02-13 00:06] VITALS: BP 117/78
[2021-02-13] MEDS: KETOROLAC 30 MG/1 ML IVPush PRN ×2 (00:55→09:10)
[2021-02-13] MEDS: LACTATED RINGERS 1,000 ML IV SCH (04:31)
[2021-02-13 05:22] LABS: BASOPHILS % (AUTO) 0 % (0-1); EOSINOPHILS % (AUTO) 1 % (1-7); LYMPHOCYTES % (AUTO) 23 % (22-44); MEAN CORPUSCULAR HEMOGLOBIN 31.8 pg (27.0-34.8); MEAN CORPUSCULAR HGB CONC 34.2 g/dL (32.4-35.8); MEAN PLATELET VOLUME 7.1 fL (7.4-10.4); MONOCYTES % (AUTO) 7 % (2-9); NEUTROPHILS % (AUTO) 69 % (42-75); PLATELET COUNT 216 x10^3/uL (130-400); RED BLOOD COUNT 2.99 x10^6/uL (3.82-5.3); RED CELL DISTRIBUTION WIDTH 14.6 % (9.6-15.2)
[2021-02-13 05:32] LABS: ALANINE AMINOTRANSFERASE 21 U/L (12-78); ALBUMIN 2.3 g/dL (3.4-5.0); ANION GAP 3 mmol/L (5-15); CHLORIDE 111 mmol/L (98-107); CREATININE 0.38 mg/dL (0.55-1.02)
[2021-02-13 05:34] LABS: ALKALINE PHOSPHATASE 55 U/L (45-117); BILIRUBIN,TOTAL 0.3 mg/dL (0.2-1.0)
[2021-02-13] MEDS ORDERED: LIDODERM REMOVE PATCH NOTE XX SCH (06:30)
[2021-02-13 06:40] VITALS: BP 102/60
[2021-02-13] MEDS ORDERED: SUCRALFATE 1 GM/10 ML UDC JT SCH (07:00)
[2021-02-13] MEDS ORDERED: PANTOPRAZOLE 40MG TABLET PO SCH (07:30)
[2021-02-13] MEDS ORDERED: PANTOPRAZOLE 40MG TABLET JT SCH (07:30)
[2021-02-13] MEDS ORDERED: LACT10SO24 JT (07:48)
[2021-02-13] MEDS ORDERED: MAALOX/HYOSCYAMINE/LIDOCAINE 45 ML BTL PO ONE (08:00)
[2021-02-13] MEDS: POLYETHYLENE GLYCOL 17 GM PACKET PO SCH (09:00)
[2021-02-13] MEDS ORDERED: LACTULOSE 10 GM/15 ML UDC JT SCH (09:00)
[2021-02-13] MEDS: BISACODYL 10 MG SUPP PR SCH (09:00)
[2021-02-13] MEDS: SUCRALFATE 1 GM/10 ML UDC JT SCH ×2 (09:11→12:03)
[2021-02-13] MEDS: LACTULOSE 10 GM/15 ML UDC JT SCH (10:49)
== END 2021-02-13 14:04 | disposition home or self-care (01) ==
LOC: ED 12:09 → EDIP 16:34 → INTOOBSV 16:34 → 3N 17:35
PROVIDERS: ADMIT Internal Medicine; ATTEND Hospitalist
DX: K59.00 Constipation, unspecified (principal); K22.2 Esophageal obstruction; K52.9 Noninfective gastroenteritis and colitis, unspecified; K83.8 Other specified diseases of biliary tract; E43 Unspecified severe protein-calorie malnutrition; G89.29 Other chronic pain; J44.9 Chronic obstructive pulmonary disease, unspecified; I25.2 Old myocardial infarction; F11.20 Opioid dependence, uncomplicated; F17.200 Nicotine dependence, unspecified, uncomplicated; Z87.11 Personal history of peptic ulcer disease; Z87.19 Personal history of other diseases of the digestive system; Z93.4 Other artificial openings of gastrointestinal tract status; Z98.84 Bariatric surgery status; Z79.899 Other long term (current) drug therapy
CPT/HCPCS: 36415; 74177; 80053; 81003; 83690; 83735; 85025; 96361; 96372; 96374; 96375; 96376; 99285; C9113; G0378; J1200; J1650; J1885; J2765; J7040; J7120; Q0162; Q9967

== ENCOUNTER 2021-03-16 07:24 | Emergency (ER) | payer MEDICAID ==
[~2021-03-16] VITALS: Ht 167.6 cm; Wt 48.0 kg
[~2021-03-16 07:24] MED LIST changes: +LACT10SO24 JT
--- NOTE | 2021-03-16 07:27 | NUR ---
PT BROOKLYN CURRAN-PT HAS CHRONIC PAIN, WAS AT HOME. CAME INTODAY W/ C/O OF ABD PAIN, BLOOD IN EMESIS. PT WAS AT [facility] YESTERDAY, WAS DC'D AT MIDNIGHT. BLOOD SUGAR WAS 117. NO INTERVENTIONS SEWER PIPE SORTER. MAGDY DID NOTE PT WAS NOT VOCAL DURING RIDE OVER ABOUT HER PAIN. PT PLACED IN GOWN, EKG COMPLETED, VSS. PT IS YELLING ENTIRE TIME ABOUT THE PAIN. PA CURRENTLY BEDSIDE.
--- NOTE | 2021-03-16 07:53 | NUR ---
WENT TO START PT IV, PT WAS FOUND ON END OF BED W/ A GLOVE FULL OF LIQUID. PT STATED SHE HAD GOTTEN UP FOR WATER. I REMINDED PT SHE IS A FALL R/C NOT TO GET OOB AND UNTIL THE MD CLEARS PT FOR PO INTAKE SHE CANNOT HAVE ANYTHING UNLESS OK BY MD. PT IS BACK ALL THE WAY IN GURNEY, SIDE RAILS UPX2. CALL LIGHT W/IN REACH.
[2021-03-16] MEDS ORDERED: SODIUM CHLORIDE 0.9% 1,000ML IVBOLUS ONE (08:00)
[2021-03-16] MEDS ORDERED: MAALOX/HYOSCYAMINE/LIDOCAINE 45 ML BTL PO ONE (08:00)
[2021-03-16] MEDS ORDERED: LORazepam 2 MG/ML, 1ML IVPush ONE (08:00)
[2021-03-16] MEDS ORDERED: ONDANSETRON 2MG/ML, 2ML IVPush ONE (08:00)
[2021-03-16] MEDS ORDERED: FAMOTIDINE 20 MG/2 ML IVPush ONE (08:00)
[2021-03-16] MEDS ORDERED: MAALOX/HYOSCYAMINE/LIDOCAINE 45 ML BTL ONE (08:11)
[2021-03-16] MEDS ORDERED: LORazepam 2 MG/ML, 1ML ONE (08:12)
[2021-03-16] MEDS ORDERED: FAMOTIDINE 20 MG/2 ML ONE (08:13)
[2021-03-16] MEDS ORDERED: ONDANSETRON 2MG/ML, 2ML ONE (08:14)
--- NOTE | 2021-03-16 08:20 | NUR ---
UPON ENTERING PT ROOM SHE HAD TAKEN OFF BP CUFF AND HER BARBER OR BEAUTY SHOP MANAGER. PT WAS REMINDED WE NEED TO MONITOR HER AND SHE CAN NOT REMOVE THESE ITEMS. ATTEMPTING FOR PIV AGAIN.
--- NOTE | 2021-03-16 08:41 | NUR ---
TASK RN LEONORA ATTEMPTED FOR PIV AND WAS ABLE TO GET ONE ON LEFT HAND, 22G. PT MEDICATED PER MAR. WHEN PUSHING MEDICATION PT STATED,"PUSH THE MEDS IN THIS ONE DOWN HERE."
[2021-03-16 08:46] LABS: BASOPHILS % (AUTO) 0 % (0-1); EOSINOPHILS % (AUTO) 1 % (1-7); LYMPHOCYTES % (AUTO) 13 % (22-44); MEAN CORPUSCULAR HEMOGLOBIN 30.5 pg (27.0-34.8); MEAN CORPUSCULAR HGB CONC 33.3 g/dL (32.4-35.8); MEAN PLATELET VOLUME 7.2 fL (7.4-10.4); MONOCYTES % (AUTO) 9 % (2-9); NEUTROPHILS % (AUTO) 76 % (42-75); PLATELET COUNT 256 x10^3/uL (130-400); RED BLOOD COUNT 4.04 x10^6/uL (3.82-5.3); RED CELL DISTRIBUTION WIDTH 15.3 % (9.6-15.2)
[2021-03-16 08:52] LABS: ALANINE AMINOTRANSFERASE 40 U/L (12-78); ALBUMIN 2.9 g/dL (3.4-5.0); ANION GAP 5 mmol/L (5-15); CALCIUM 9.1 mg/dL (8.5-10.1); CHLORIDE 108 mmol/L (98-107); CREATININE 0.47 mg/dL (0.55-1.02)
[2021-03-16 08:54] LABS: ALKALINE PHOSPHATASE 60 U/L (45-117); BILIRUBIN,TOTAL 0.4 mg/dL (0.2-1.0); TOTAL PROTEIN 7.1 g/dL (6.4-8.2)
[2021-03-16] MEDS ORDERED: KETAMINE 100 MG/ML, 5ML IV ONE (09:00)
--- NOTE | 2021-03-16 09:05 | NUR ---
PT IS LAYING IN GURNEY, BLANKET OVER HEAD. VSS. CALL LIGHT W/IN REACH. BED RAIL UPX2.
--- NOTE | 2021-03-16 09:53 | NUR ---
PT SLEEPING UNDER BLANKET STILL. CALL LIGHT W/IN REACH. CHRISTOPHER. DAVID.
--- NOTE | 2021-03-16 10:37 | NUR ---
PT IS STILL SLEEPING IN [facility], SINCE BEING MEDICATED HAVE NOT HEARD PT CALL OUT IN PAIN OR VOMITING AND HAS BEEN SLEEPING. PA NOTIFIED, AND WILL PROCEED W/ DISCHARING PT.
[2021-03-16] MEDS ORDERED: METHYLNALTREXONE 12 MG/0.6 ML SYR SQ ONE ×2 (10:53→11:00)
--- NOTE | 2021-03-16 10:59 | NUR ---
PT MEDICATED PER NOV. SHE IS STILL SLEEPING, THOUGH IS EASILY ROUSABLE. WHEN ASKED IF SHE WAS FEELING BETTER, SHE NODDED AND CLOSED HER EYES AGAIN. DAVID WHITE. CALL LIGHT W/ IN REACH.
[2021-03-16 11:53] VITALS: BP 110/65
--- NOTE | 2021-03-16 11:59 | NUR ---
PT IS NOT COOPERATIVE DURING D/C, KEEPS TURNING OVER AND NOT ANSWERING HOW SHE IS GETTING HOME. AFTER MUCH PERSISTENCE PT STATES, "TAXI". PIV REMOVED, WHEN PT MORE AWAKE REVIEWED D/C PAPERWORK BUT APPEARED DISINTERESTED. STATES SHE NEEDS TO GO TO RESTROOM. INFORMED PT WE WILL GO ON OUR WAY OUT TO ADMITTING.
--- NOTE | 2021-03-16 12:11 | NUR ---
PT UP TO RESTROOM, NO ISSUE STEADY GAIT. PT HAS SLIPPERS, PROVIDED 2 HOSPITAL GOWNS. PT IS GOING TO [facility] SHE HAS MEDICAID.
--- NOTE | 2021-03-16 12:17 | NUR ---
ALTHOUGH PT WAS STEADY, BECAUSE IS WAITING FOR M2M RIDE PLACED IN WHEELCHAIR. PT WAS WHEELED TO PHONE W/ INSTRUCTION TO CALL AND ADMITTING IS AWARE PT IS CLEAR TO GO.
== END 2021-03-16 12:21 | disposition home or self-care (01) ==
LOC: ED 08:25
DX: K20.90 Esophagitis, unspecified without bleeding (principal); G89.29 Other chronic pain; K59.00 Constipation, unspecified; R11.2 Nausea with vomiting, unspecified; J44.9 Chronic obstructive pulmonary disease, unspecified; F17.210 Nicotine dependence, cigarettes, uncomplicated
CPT/HCPCS: 36415; 74021; 80053; 83690; 85025; 93005; 96361; 96372; 96374; 96375; 99285; J2060; J2405; J7030